=== PATIENT | female | born 1965 | race Hispanic/Latino ===

== ENCOUNTER → 2019-07-08 | Outpatient (CLI) | payer BC ==
[~2019-07-08] MED LIST: ASPI-555 PO; CALC950T2 PO; CHOL100053 PO; LEVO50TA11 PO; LISI-613 PO; LORA10TA7 PO; PRAV20TA4 PO
== END | disposition home or self-care (01) ==
LOC: RAH 08:58
PROVIDERS: ATTEND Internal Medicine Nephrology
DX: Z12.31 Encounter for screening mammogram for malignant neoplasm of breast (principal); C73 Malignant neoplasm of thyroid gland; E04.2 Nontoxic multinodular goiter
CPT/HCPCS: 76536; 77067

== ENCOUNTER → 2020-04-06 | Outpatient (CLI) | payer BC ==
[~2020-04-06] MED LIST changes: -ASPI-555 PO; +ASPI-556 PO
== END | disposition home or self-care (01) ==
LOC: RAH 11:04
PROVIDERS: ATTEND Internal Medicine Endocrinology, Diabetes & Metabolism
DX: E04.1 Nontoxic single thyroid nodule (principal); C73 Malignant neoplasm of thyroid gland
CPT/HCPCS: 76536

== ENCOUNTER → 2020-09-28 | Outpatient (CLI) | payer BC | END | disposition home or self-care (01) | LOC: RAH 11:16 | PROVIDERS: ATTEND Internal Medicine Endocrinology, Diabetes & Metabolism | DX: C73 Malignant neoplasm of thyroid gland (principal); E04.2 Nontoxic multinodular goiter | CPT/HCPCS: 76536 ==

== ENCOUNTER → 2023-10-23 | Outpatient (CLI) | payer BC ==
[~2023-10-23] MED LIST changes: -LISI-613 PO; +LISI20TA24 PO
== END | disposition home or self-care (01) ==
LOC: RAH 13:23
PROVIDERS: ATTEND Family Medicine
DX: Z12.31 Encounter for screening mammogram for malignant neoplasm of breast (principal); R92.323 Mammographic fibroglandular density, bilateral breasts
CPT/HCPCS: 77067

== ENCOUNTER 2025-05-23 11:44 | Inpatient (IN) | payer BC ==
[~2025-05-23] VITALS: Ht 157.5 cm; Wt 81.6 kg
[~2025-05-23 11:44] MED LIST changes: -PRAV20TA4 PO; +PRAV20TA59 PO
--- NOTE | 2025-05-23 12:17 | EKG ---
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
[2025-05-23 12:22] LABS: IMMATURE GRANULOCYTE ABSOLUTE 0.05 K/uL (0-1); NUCLEATED RED BLOOD CELLS 0.0 % (0.0-0.19); PLATELET COUNT (AUTO) 306 K/uL (130-400); RED BLOOD CELL COUNT(AUTO) 4.02 MIL/uL (4.00-5.50); RED CELL DISTRIBUTION WIDTH 12.9 % (11.0-15.5); WHITE BLOOD COUNT (AUTO) 8.9 K/uL (4.8-10.8)
[2025-05-23 12:29] LABS: CREATININE 0.6 mg/dL (0.5-1.0); GLOMERULAR FILTR. RATE CALC 103.0 mL/min (>90); GLUCOSE,RANDOM 115.0 mg/dL (70-105); SODIUM SERUM 143.0 mmol/L (136-145); UREA NITROGEN, BLOOD 20.0 mg/dL (7-18)
[2025-05-23] MEDS: 0.9%NACL 1000ML 1,000 ML IV STA (13:16)
[2025-05-23 13:22] LABS: GLUCOSE, URINE (UA) NEGATIVE (NEGATIVE); LEUKOCYTE ESTERASE ,URINE 75 Leu/uL (NEGATIVE); NITRATE,URINE NEGATIVE (NEGATIVE); OCCULT BLOOD,URINE MODERATE (NEGATIVE)
[2025-05-23 13:30] LABS: ADD UA MICROSCOPIC YES; APPEARANCE,URINE HAZY (CLEAR)
[2025-05-23 13:53] LABS: HYALINE CASTS, URINE 51-100 /LPF (0-1 /LPF); SQUAMOUS EPITHELIAL CELL,UR FEW /HPF (0-2)
[2025-05-23] MEDS ORDERED: IOHEXOL-350 75 ML VIAL IV ONE (14:25)
--- NOTE | 2025-05-23 15:39 | ERN ---
ED Note History of Present Illness Stated Complaint: BLOODY STOOLS, DIZZINESS Chief Complaint: Bloody Stool Time Seen by MD: 11:46 Time Seen by Midlevel: 11:50 Dictation: 59-year-old female coming in with complaints of bloody stools and syncopal episodes. Patient states this morning she woke up as usual went to to have a bowel movement, states while she was having a bowel movement she began to feel faint, stood up and almost passed out so she sat down, noticed blood when she wiped and in his stool. Patient is having some lower abdominal discomfort. Patient brought in sample in the cup, looks like clots. Denies any nausea and vomiting fever. Allergies: Coded Allergies: No Known Drug Allergies (Unverified Allergy, Unknown, 07/04/16) Home Meds Reported Medications Cholecalciferol (Vitamin D3) (Vitamin D) 10,000 Unit Capsule, 84195 UNIT PO QWEEK, CAP 07/04/16 Aspirin (Aspir 81) 81 Mg Tablet.dr, 81 MG PO AM, TAB 07/04/16 Loratadine (Loratadine) 10 Mg Tablet, 10 MG PO AM, TAB 07/04/16 Calcium Citrate (Calcitrate) 200 Mg Tablet, 200 MG PO AM, TAB 07/04/16 Levothyroxine Sodium (Levothyroxine Sodium) 50 Mcg Tablet, 50 MCG PO DAILY, TAB 07/04/16 Pravastatin Sodium (Pravastatin Sodium) 20 Mg Tablet, 20 MG PO PM, TAB 07/04/16 Lisinopril (Lisinopril) 20 Mg Tablet, 20 MG PO PM, TAB 07/04/16 Past Medical History Past Medical History: Hypertension, Hypothyroid Surgical History: Other Surgical History Other: THYROID Review of System Dictation Constitutional: Negative for fever,chills, and weight loss Eyes: Negative for injury, pain,redness, and discharge ENT: Negative for injury,pain or swelling Cardiovascular: Negative for chest pain, palpitations, and edema Respiratory: Negative for shortness of breath, cough, and wheezing, Abdomen/GI: Lower abdominal pain with bright red stool Back: Negative for injury and pain : Negative for injury, bleeding and discharge MS/Extremity: Negative for injury and deformity Skin: Negative for rash, and discoloration Neuro: Negative for headache, weakness, numbness, tingling, and seizure Psych: Negative for suicide ideation, homicidal ideation, and hallucinations Review of Systems: was completed Initial Vital Sign VS Vital Signs Date Time Temp Pulse Resp B/P (MAP) Pulse Ox O2 Delivery O2 Flow Rate FiO2 05/23/25 11:46 97.9 57 16 131/65 93 Room Air 0 05/23/25 13:16 21 Physical Exam Dictation General: awake, alert, NAD Head/Face: Normocephalic, atraumatic Eyes: PERRL, EOMI, vision at baseline ENT: oral cavity clear, TMs clear, no signs of infection Neck: Trachea midline, supple, no nuchal rigidity Cardiovascular: RRR, normal S1/S2, No MRGs, no JVD Respiratory: CTAB, no respiratory distress, No rales or wheezes Abdomen: Soft, non-tender, non-distended, normal bowel sounds, no guarding or rebound. Skin: Warm, dry, normal turgor, no rash MS/Extremity: Pulses equal, no cyanosis, neurovascular intact, FROM Neuro: COAx4, GCS 15, strength 5/5, CN 2-12 intact, normal cerebellar exam, normal gait, Psych: Normal behavior, mood, and affect normal On rectal exam there are external hemorrhoids, nonthrombosed. Results (Laboratory/Radiology) Laboratory/Radiology Laboratory Tests Test 05/23/25 12:10 05/23/25 12:11 05/23/25 13:00 Whole Blood Glucose 96 MG/DL (70-110) White Blood Count 8.9 K/uL (4.8-10.8) Red Blood Count 4.02 MIL/uL (4.00-5.50) Hemoglobin 12.1 g/dL (12.0-16.0) Hematocrit 36.4 % (36-48) Mean Corpuscular Volume 90.5 fL (79-99) Mean Corpuscular Hemoglobin 30.1 pg (27.0-33.0) Mean Corpuscular Hemoglobin Concent 33.2 g/dL (32.0-36.0) Red Cell Distribution Width 12.9 % (11.0-15.5) Platelet Count 306 K/uL (130-400) Mean Platelet Volume 9.1 fL (7.5-10.5) Immature Granulocyte % (Auto) 0.6 % (0-1) Neutrophils (%) (Auto) 66.4 % (40.0-77.0) Lymphocytes (%) (Auto) 27.4 % (21.0-51.0) Monocytes (%) (Auto) 4.8 % (3.0-13.0) Eosinophils (%) (Auto) 0.4 % (0.0-8.0) Basophils (%) (Auto) 0.4 % (0.0-5.0) Neutrophils # (Auto) 5.9 K/uL (1.8-7.7) Lymphocytes # (Auto) 2.5 K/uL (1.0-4.8) Monocytes # (Auto) 0.4 K/uL (0.1-1.0) Eosinophils # (Auto) 0.04 K/uL (0.00-0.70) Basophils # (Auto) 0.04 K/uL (0.00-0.20) Absolute Immature Granulocyte (auto 0.05 K/uL (0-1) Nucleated Red Blood Cells 0.0 % (0.0-0.19) Sodium Level 143 mmol/L (136-145) Potassium Level 4.0 mmol/L (3.5-5.1) Chloride Level 105 mmol/L (101-111) Carbon Dioxide Level 30 mmol/L (21-32) Blood Urea Nitrogen 20 mg/dL (7-18) H Creatinine 0.6 mg/dL (0.5-1.0) Glomerular Filtration Rate Calc 103 mL/min (>90) Random Glucose 115 mg/dL (70-105) H Total Calcium 8.8 mg/dL (8.5-10.1) Troponin I High Sensitivity 11 ng/L (4-50) Urine Color YELLOW (YELLOW) Urine Appearance HAZY (CLEAR) Urine pH 5.5 (5.0-8.0) Urine Specific [place] 1.027 (1.001-1.031) Urine Protein 50 mg/dL (NEGATIVE) H Urine Glucose (UA) NEGATIVE mg/dL (NEGATIVE) Urine Ketones NEGATIVE mg/dL (NEGATIVE) Urine Occult Blood MODERATE (NEGATIVE) H Urine Nitrate NEGATIVE (NEGATIVE) Urine Bilirubin NEGATIVE mg/dL (NEGATIVE) Urine Urobilinogen 0.2 mg/dL (0.2-1.0) Urine Leukocyte Esterase 75 Patti/uL (NEGATIVE) H Urine RBC 2-5 /HPF (0-1) H Urine WBC 11-25 /HPF (0-1) H Urine Squamous Epithelial Cells FEW /HPF (0-2) Urine Bacteria None /HPF (None Seen) Urine Hyaline Casts 51-100 /LPF (0-1 /LPF) H Labs Reviewed?: Yes EKG Comment: EKGs did not at 12:11 p.m., sinus rhythm with a rate of 63. No STEMI interpreted by ER MD CT Scan Comment: [facility] [address] [place] [address] IMAGING REPORT Signed PATIENT: QUIANA JOHN MR#: [id number] : 1965 SEX: F AGE: 59 LOCATION: [facility] ORDER 37 STATUS: REG ER REPORT#: [id number] SERVICE 37 REASON: gibleed ORDERING PHYSICIAN: JOY VALDEZ NP PROCEDURE: ABD PEL W - CT ABDOMEN/PELVIS W/CONTRAST EXAM: CT Abdomen and Pelvis with IV contrast CLINICAL HISTORY: gibleed TECHNIQUE: Axial computed tomography images of the abdomen and pelvis with intravenous contrast. CT scan performed according to ALARA. Automated exposure control used during exam. CONTRAST: with intravenous contrast. COMPARISON: None provided. FINDINGS: There is mild linear atelectasis and/or parenchymal scarring at the lung bases. Presumed cyst within the left hepatic lobe. There is no intrahepatic biliary ductal dilatation. Prominent gallbladder. No radiopaque gallstone identified. No gallbladder wall thickening or pericholecystic inflammatory fat stranding. Adrenal glands, kidneys, spleen, and pancreas are within normal limits. Bowel loops are normal in caliber without evidence of obstruction, ileus, or obvious bowel wall thickening. Colonic diverticulosis without evidence for diverticulitis. The appendix is normal. Bladder, and other pelvic organs appear within normal limits. There is no ascites or lymphadenopathy. Opacified abdominal and pelvic vessels are patent. There is no acute or suspicious osseous abnormality. IMPRESSION: 1. No acute intraabdominal or pelvic pathology. No CT evidence of an active/acute gastrointestinal hemorrhage; however, if clinical concern persists recommend a tagged RBC scan for further evaluation. /[place] DICTATED BY: GIBSON RODRIGUEZ Jr., MD DATE: 05/23/251640 ELECTRONICALLY SIGNED BY: GIBSON RODRIGUEZ Jr., MD DATE: 05/23/251640 ED Course ED Course Orders Procedure Category Date Status Time Cbc With Differential LAB 05/23/25 Complete 11:58 Basic Metabolic Panel LAB 05/23/25 Complete 11:58 Occult Blood Stool LAB 05/23/25 Logged Single Only 11:58 Urinalysis Profile LAB 05/23/25 Complete 11:58 Troponin I High LAB 05/23/25 Complete Sensitivity 11:58 12 Lead Ekg Tracing- EKG 05/23/25 Resulted Technical 11:58 0.9%Nacl 1000ml (Ns PHA 05/23/25 Complete 1000ml) 12:12 Culture Urine RAMIREZ 05/23/25 In Process 13:31 Ct Abdomen/Pelvis CT 05/23/25 Resulted W/Contrast 13:38 Iohexol (Omnipaque) PHA 05/23/25 Complete 14:25 Current Medications Medications (Trade) Dose Ordered Sig/Magui Route PRN Reason Start Time Stop Time Status Last Admin Dose Admin Iohexol (Omnipaque) 75 ml STK-MED ONCE IV 05/23/25 14:25 05/23/25 14:26 DC Sodium Chloride 1,000 ml @ 1,000 mls/hr Q1H STAT IV 05/23/25 12:12 05/23/25 13:11 DC 05/23/25 13:16 Vital Signs Date Time Temp Pulse Resp B/P (MAP) Pulse Ox O2 Delivery O2 Flow Rate FiO2 05/23/25 13:16 62 16 118/51 95 Room Air* 0 21 05/23/25 11:46 97.9 57 16 131/65 93 Room Air 0 Medical Decision Making MDM MDM: 59-year-old female coming in with complaints of bloody stools and syncopal episodes. Patient states this morning she woke up as usual went to to have a bowel movement, states while she was having a bowel movement she began to feel faint, stood up and almost passed out so she sat down, noticed blood when she wiped and in his stool. Patient is having some lower abdominal discomfort. Patient brought in sample in the cup, looks like clots. Denies any nausea and vomiting fever. Blood work is unremarkable. Normal H&H. CT scan does not show anything acute. Patient will be admitted for GI consultation and possible serial H&H. Patient has not had any bowel movements while in the emergency room vital signs have remained stable. Differential diagnosis: GI bleed, hemorrhoid, anemia Rationale: Tests considered and ordered secondary to shared decision making include: labs, ECG and radiology Previous outside records reviewed: Old ER visits. Risk of complication and/or morbidity or mortality of patient management: None Medications-Per medication reconciliation Need for hospitalization: Patient does meet criteria for hospitalization. Need for emergency major/minor surgery: No There are no social concerns with this patient. Prescription drug management Prescriptions will include symptomatic care Patient's prior external medical records from other ER visits were reviewed by me as indicated. Prior testing and results from previous visits were reviewed. Prior tests were taken into account with medical decision making and resource utilization, independent historian/historians were used to obtain complete medical history. I independently interpreted the test that were performed, results were reviewed by me and considered findings on radiology if ordered. Medical management and examination interpretation discussions were had by me with other qualified healthcare professionals as indicated for the patient's care. DX & DISP Disposition: Inpatient Decision to Admit Date: May 23, 2025 Decision to Admit Time: 16:12 Departure Impression: Primary Impression: GI (gastrointestinal bleed) Condition: Stable Referrals: SAHRA CORONADO MD (PCP) I have reviewed the case, and I agree with, Diagnosis and Plan JOY VALDEZ NP May 23, 2025 15:39
--- NOTE | 2025-05-23 15:42 | HMCIMG ---
EXAM: CT Abdomen and Pelvis with IV contrast CLINICAL HISTORY: gibleed TECHNIQUE: Axial computed tomography images of the abdomen and pelvis with intravenous contrast. CT scan performed according to ALARA. Automated exposure control used during exam. CONTRAST: with intravenous contrast. COMPARISON: None provided. FINDINGS: There is mild linear atelectasis and/or parenchymal scarring at the lung bases. Presumed cyst within the left hepatic lobe. There is no intrahepatic biliary ductal dilatation. Prominent gallbladder. No radiopaque gallstone identified. No gallbladder wall thickening or pericholecystic inflammatory fat stranding. Adrenal glands, kidneys, spleen, and pancreas are within normal limits. Bowel loops are normal in caliber without evidence of obstruction, ileus, or obvious bowel wall thickening. Colonic diverticulosis without evidence for diverticulitis. The appendix is normal. Bladder, and other pelvic organs appear within normal limits. There is no ascites or lymphadenopathy. Opacified abdominal and pelvic vessels are patent. There is no acute or suspicious osseous abnormality. IMPRESSION: 1. No acute intraabdominal or pelvic pathology. No CT evidence of an active/acute gastrointestinal hemorrhage; however, if clinical concern persists recommend a tagged RBC scan for further evaluation. /[place]
--- NOTE | 2025-05-23 17:20 | NUR ---
GI CONSULT [facility] DR. BUTLER DONE, ORDERED CLEAR LIQUID DIET AND STATES WILL PT TOMORROW. ALSO, DR. MIMS SPOKE TO DR. BUTLER POST NURSE talk.
--- NOTE | 2025-05-23 17:53 | CONS ---
GASTROENTEROLOGY CONSULTATION NOTE Date of Consultation: May 23, 2025 Time of Consultation: 17:51 History of Present Illness: [ This is a 59-year-old female patient who came to the emergency room with complaints of bloody stools. Per ER report patient reported feeling faint this morning. On exam patient stated she had brought in a cup with some blood clots that she had passed. She reports having mild left lower quadrant abdominal pain. She denies having any constipation, denies nausea or vomiting. Her CBC is significant for WBC of 8.9 hemoglobin 12.1 which has trended down to 10.7, platelets of 306. CMP significant for BUN of 20, glucose of 115, LFTs were not examined. PT 11.5, INR 1.09. CT of abdomen and pelvis with no acute intra- abdominal or pelvic pathology. No CT evidence of an active/acute gastrointestinal hemorrhage: Patient reports having last colonoscopy about 10 years ago in which she was told she had diverticulosis. Plan discussed with patient and spouse with recommendations for colonoscopy tomorrow morning to assess for any pathology or cause of bleeding. Both patient and spouse verbalized understanding and agreed to proceed with colonoscopy.] Review of Systems: CONSTITUTIONAL: No malaise or change in sensation of wellbeing. ENMT: No rhinorrhea, otorrhea, sinus pain, ear ache. CARDIOVASCULAR: No angina, palpitations, orthopnea or paroxysmal dyspnea. RESPIRATORY: No SOB. GASTROINTESTINAL: No abdominal pain, nausea, vomiting, diarrhea, hematemesis, melena or change in the patient's habitual bowel movements consistency/number. GENITOURINARY: No dysuria, hematuria or change in bladder continence. MUSCULOSKELETAL: No new muscle pain or decrease in muscular strength. No new joint swelling, redness or tenderness. SKIN: No new rash. Past Medical History: Hypertension, hypothyroidism PAST SURGICAL HISTORY: History of colonoscopy PAST SOCIAL HISTORY: Denied any smoking, alcohol, drug use FAMILY HISTORY: Denied any pertinent family history Coded Allergies: No Known Drug Allergies (Unverified Allergy, Unknown, 07/04/16) Physical Exam: GEN: Awake, alert, oriented in person, time and place, and in no acute distress. HEENT: No rhinorrhea. Oral pharyngeal mucosa is pink, moist and within normal limits. CHEST: Inspection, palpation of the chest were unremarkable. Lung auscultation revealed normal breath sounds bilaterally. CARDIAC: PMI is within normal limits. Heart sounds are regular. ABD: Soft, nondistended but mildly tender to LLQ. No peritoneal signs on palpation. No organomegaly. Normal bowel sounds. EXT: No cyanosis or clubbing. No edema. SKIN: Intact. No rashes. JOINTS: No evidence of synovitis or acute arthritis. NEURO: Alert and oriented to name, place and person. Cranial nerve examination is unremarkable. No focal motor deficits. Normal speech. Strength is normal. Vital Sign (Last 24 Hours) 05/23/25 05/23/25 11:46 16:26 Temp 97.9 Pulse 65 Resp 16 B/P (MAP) 141/67 Pulse Ox 96 O2 Delivery Room Air* O2 Flow Rate 0 FiO2 21 Laboratory: [ ] Laboratory: Test 05/23/25 17:41 05/23/25 13:00 05/23/25 12:11 05/23/25 12:10 Range/Units Hemoglobin 10.7 L 12.0-16.0 g/dL Hematocrit 32.2 L 36-48 % Urine Color YELLOW YELLOW Urine Appearance HAZY CLEAR Urine pH 5.5 5.0-8.0 Urine Specific [place] 1.027 1.001-1.031 Urine Protein 50 H NEGATIVE mg/dL Urine Glucose (UA) NEGATIVE NEGATIVE mg/dL Urine Ketones NEGATIVE NEGATIVE mg/dL Urine Occult Blood MODERATE H NEGATIVE Urine Nitrate NEGATIVE NEGATIVE Urine Bilirubin NEGATIVE NEGATIVE mg/dL Urine Urobilinogen 0.2 0.2-1.0 mg/dL Urine Leukocyte Esterase 75 H NEGATIVE Patti/uL Urine RBC 2-5 H 0-1 /HPF Urine WBC 11-25 H 0-1 /HPF Urine Squamous Epithelial Cells FEW 0-2 /HPF Urine Bacteria None None Seen /HPF Urine Hyaline Casts 51-100 H 0-1 /LPF /LPF White Blood Count 8.9 4.8-10.8 K/uL Red Blood Count 4.02 4.00-5.50 MIL/uL Mean Corpuscular Volume 90.5 79-99 fL Mean Corpuscular Hemoglobin 30.1 27.0-33.0 pg Mean Corpuscular Hemoglobin Concent 33.2 32.0-36.0 g/dL Red Cell Distribution Width 12.9 11.0-15.5 % Platelet Count 306 130-400 K/uL Mean Platelet Volume 9.1 7.5-10.5 fL Immature Granulocyte % (Auto) 0.6 0-1 % Neutrophils (%) (Auto) 66.4 40.0-77.0 % Lymphocytes (%) (Auto) 27.4 21.0-51.0 % Monocytes (%) (Auto) 4.8 3.0-13.0 % Eosinophils (%) (Auto) 0.4 0.0-8.0 % Basophils (%) (Auto) 0.4 0.0-5.0 % Neutrophils # (Auto) 5.9 1.8-7.7 K/uL Lymphocytes # (Auto) 2.5 1.0-4.8 K/uL Monocytes # (Auto) 0.4 0.1-1.0 K/uL Eosinophils # (Auto) 0.04 0.00-0.70 K/uL Basophils # (Auto) 0.04 0.00-0.20 K/uL Absolute Immature Granulocyte (auto 0.05 0-1 K/uL Nucleated Red Blood Cells 0.0 0.0-0.19 % Sodium Level 143 136-145 mmol/L Potassium Level 4.0 3.5-5.1 mmol/L Chloride Level 105 101-111 mmol/L Carbon Dioxide Level 30 21-32 mmol/L Blood Urea Nitrogen 20 H 7-18 mg/dL Creatinine 0.6 0.5-1.0 mg/dL Glomerular Filtration Rate Calc 103 >90 mL/min Random Glucose 115 H 70-105 mg/dL Total Calcium 8.8 8.5-10.1 mg/dL Troponin I High Sensitivity 11 4-50 ng/L Whole Blood Glucose 96 70-110 MG/DL Current Medications Medications (Trade) Dose Ordered Sig/Magui Route PRN Reason Start Time Stop Time Status Last Admin Dose Admin Acetaminophen (TYLenol 500MG TAB) 500 mg Q6H PRN PO MILD PAIN (1-3) 05/23/25 17:30 05/23/25 17:28 DC Acetaminophen (TYLenol 500MG TAB) 500 mg Q6H PRN PO MILD PAIN (1-3) 05/23/25 17:30 06/22/25 17:29 Ceftriaxone Sodium (ROCEphine 1G INJ) 1 gm Q24H IVPB 05/23/25 17:30 06/02/25 17:29 Pantoprazole Sodium (PROTonix 40MG INJ) 40 mg Q12H IVP 05/23/25 17:30 06/22/25 17:29 Sodium Chloride 1,000 ml @ 100 mls/hr Q10H IV 05/23/25 17:30 06/22/25 17:29 Sodium Chloride 1,000 ml @ 1,000 mls/hr Q1H STAT IV 05/23/25 12:12 05/23/25 13:11 DC 05/23/25 13:16 1,000 MLS/HR Diagnostics / Radiology: [COPY/PASTE HERE IF NO REPORTS PLEASE DELETE SECTION] Assessment: [ Hematochezia Abdominal pain Diverticulosis Hypertension Hypothyroidism ] Plan: [NPO Colonoscopy in am--Information given on procedure with risks and benefits. All patient's and spouse's questions were answered and patient agreed to proceed. Trend HGB every 6 hours and transfuse as needed to goal of HGB >7 Please call with questions, concerns, and change in clinical status Thank you for allowing us to be part of this patient's care. ] PALMIRA EMRCHANT SALESPERSON TERRAZZO TILES May 23, 2025 17:53
[2025-05-23] MEDS: 0.9%NACL 1000ML 1,000 ML IV SCH (18:40)
[2025-05-23] MEDS: PEG 3350/NA SULF,BICARB,CL/KCL 4000 ML SOLN PO ONE (18:40)
--- NOTE | 2025-05-23 18:44 | HP ---
[facility] HISTORY AND PHYSICAL Date of Service: May 23, 2025 Time of Service: 18:35 HISTORY OF PRESENT ILLNESS: 59-year-old female with past medical history of hypertension, hypothyroidism who presented to the hospital secondary to hematochezia. The patient states she was having a bowel movement today when she noted that she had red color stool with her BM. During the episode she felt faint and dizzy. The episode lasted for a few minutes. She tried to stand up and she felt she was going to faint. She never lost consciousness during the episode. She sat down on the toilet bowel. She denied any headache, chest pain, shortness of breath, nausea, vomiting associated with the pain. She denied any hematemesis, melena. She has a had a colonoscopy done around [address] Braun as outpatient which was noted to have diverticulosis. She has not had never had a previous episode of hematochezia in the past. She does have hemorrhoids noted. Additionally she also felt she was having some suprapubic tenderness with her bowel movement. She denied any dysuria, hematuria. She denies being on any blood thinners. She was recently having lower extremity muscle spasm and hip pain. She was started on muscle relaxant and ibuprofen. She has been taking ibuprofen for one week once a day. She denied any history of gastritis, GERD. Labs in the ED were notable for white count of 8.9, hemoglobin was 12.1, platelet count was 306 K, sodium was 143, potassium was 4.0, BUN was 20, creatinine was 0.6 troponin was negative x1 She had a CT abdomen pelvis done showed no acute intra abdominal or intra pelvic pathology. REVIEW OF SYSTEMS CONSTITUTIONAL: Denies fevers, chills, or night sweats. No unintentional weight loss reported. NEUROLOGICAL: Denies headache, amaurosis fugax, motor weakness, sensory deficit, vertigo/spinning sensation, gait abnormalities, or tremors. ENT: No hearing loss, otalgia, otorrhea, rhinitis, rhinorrhea, hoarseness, or sore throat. CARDIOVASCULAR: Denies any exertional angina, dyspnea on exertion, orthopnea, paroxysmal nocturnal dyspnea, palpitations, life-threatening arrhythmias, claudication. PULMONARY: Denies any shortness of breath, cough, phlegm/sputum, hemoptysis, pleuritic chest pain. GASTROINTESTINAL: Positive for hematochezia. Denied any nausea, vomiting, melena, hematemesis. GENITOURINARY: Denies frequency, urgency, nocturia, hematuria or incontinence (Storage/Irritative symptoms.) Low urinary stream, straining to void, urinary intermittency or hesitancy, splitting of the voiding stream, terminal dribbling. ENDOCRINOLOGIC: Denies polyuria, polydipsia, polyphagia or heat/cold intolerances. HEMATOLOGIC: Denies thrombophilia/previous clots, or coagulopathy/bleeding disorders. ONCOLOGIC: Denies personal history of malignancy. DERMATOLOGIC: Denies rashes or pruritus. PSYCHIATRIC: Denies any suicidal or homicidal ideation. Denies hallucinations. PAST MEDICAL HISTORY: Hypertension, hypothyroidism PAST SURGICAL HISTORY: History of colonoscopy PAST SOCIAL HISTORY: Denied any smoking, alcohol, drug use FAMILY HISTORY: Denied any pertinent family history Coded Allergies: No Known Drug Allergies (Unverified Allergy, Unknown, 07/04/16) PHYSICAL EXAM GENERAL APPEARANCE: The patient is awake, alert, and oriented, in no acute cardiopulmonary distress. NEUROLOGICAL: Cranial nerves II-XII grossly intact. Motor is 5/5 in bilateral upper and lower extremities proximal to distal. No sensory deficits. HEENT: Face is symmetric. Pupils are equal and reactive. Extraocular movements are intact. NECK: Supple. No JVD. No thyromegaly. No submental, submandibular, pre- /postauricular, occipital or supraclavicular lymphadenopathy. CHEST: Normal chest expansion. No Telemetry. LUNGS: Absence of any rales, rhonchi or any wheezing. CARDIOVASCULAR: Regular. S1 and S2 normal. No appreciable rubs, murmurs or gallops. ABDOMEN: Soft, nontender, and nondistended. There is no rebound, voluntary guarding, or rigidity. : Deferred. No Sánchez. EXTREMITIES: Non-edematous and not cyanotic. No clubbing. Good capillary refill. SKIN: No skin breakdown. Vital Sign (Last 24 Hours) 05/23/25 05/23/25 11:46 16:26 Temp 97.9 Pulse 65 Resp 16 B/P (MAP) 141/67 Pulse Ox 96 O2 Delivery Room Air* O2 Flow Rate 0 FiO2 21 LABS: Laboratory: Test 05/23/25 17:41 05/23/25 13:00 05/23/25 12:11 05/23/25 12:10 Range/Units Hemoglobin 10.7 L 12.0-16.0 g/dL Hematocrit 32.2 L 36-48 % Urine Color YELLOW YELLOW Urine Appearance HAZY CLEAR Urine pH 5.5 5.0-8.0 Urine Specific [place] 1.027 1.001-1.031 Urine Protein 50 H NEGATIVE mg/dL Urine Glucose (UA) NEGATIVE NEGATIVE mg/dL Urine Ketones NEGATIVE NEGATIVE mg/dL Urine Occult Blood MODERATE H NEGATIVE Urine Nitrate NEGATIVE NEGATIVE Urine Bilirubin NEGATIVE NEGATIVE mg/dL Urine Urobilinogen 0.2 0.2-1.0 mg/dL Urine Leukocyte Esterase 75 H NEGATIVE Ptati/uL Urine RBC 2-5 H 0-1 /HPF Urine WBC 11-25 H 0-1 /HPF Urine Squamous Epithelial Cells FEW 0-2 /HPF Urine Bacteria None None Seen /HPF Urine Hyaline Casts 51-100 H 0-1 /LPF /LPF White Blood Count 8.9 4.8-10.8 K/uL Red Blood Count 4.02 4.00-5.50 MIL/uL Mean Corpuscular Volume 90.5 79-99 fL Mean Corpuscular Hemoglobin 30.1 27.0-33.0 pg Mean Corpuscular Hemoglobin Concent 33.2 32.0-36.0 g/dL Red Cell Distribution Width 12.9 11.0-15.5 % Platelet Count 306 130-400 K/uL Mean Platelet Volume 9.1 7.5-10.5 fL Immature Granulocyte % (Auto) 0.6 0-1 % Neutrophils (%) (Auto) 66.4 40.0-77.0 % Lymphocytes (%) (Auto) 27.4 21.0-51.0 % Monocytes (%) (Auto) 4.8 3.0-13.0 % Eosinophils (%) (Auto) 0.4 0.0-8.0 % Basophils (%) (Auto) 0.4 0.0-5.0 % Neutrophils # (Auto) 5.9 1.8-7.7 K/uL Lymphocytes # (Auto) 2.5 1.0-4.8 K/uL Monocytes # (Auto) 0.4 0.1-1.0 K/uL Eosinophils # (Auto) 0.04 0.00-0.70 K/uL Basophils # (Auto) 0.04 0.00-0.20 K/uL Absolute Immature Granulocyte (auto 0.05 0-1 K/uL Nucleated Red Blood Cells 0.0 0.0-0.19 % Sodium Level 143 136-145 mmol/L Potassium Level 4.0 3.5-5.1 mmol/L Chloride Level 105 101-111 mmol/L Carbon Dioxide Level 30 21-32 mmol/L Blood Urea Nitrogen 20 H 7-18 mg/dL Creatinine 0.6 0.5-1.0 mg/dL Glomerular Filtration Rate Calc 103 >90 mL/min Random Glucose 115 H 70-105 mg/dL Total Calcium 8.8 8.5-10.1 mg/dL Troponin I High Sensitivity 11 4-50 ng/L Whole Blood Glucose 96 70-110 MG/DL Current Medications Medications (Trade) Dose Ordered Sig/Magui Route PRN Reason Start Time Stop Time Status Last Admin Dose Admin Acetaminophen (TYLenol 500MG TAB) 500 mg Q6H PRN PO MILD PAIN (1-3) 05/23/25 17:30 05/23/25 17:28 DC Acetaminophen (TYLenol 500MG TAB) 500 mg Q6H PRN PO MILD PAIN (1-3) 05/23/25 17:30 06/22/25 17:29 Ceftriaxone Sodium (ROCEphine 1G INJ) 1 gm Q24H IVPB 05/23/25 17:30 06/02/25 17:29 Pantoprazole Sodium (PROTonix 40MG INJ) 40 mg Q12H IVP 05/23/25 17:30 06/22/25 17:29 Sodium Chloride 1,000 ml @ 100 mls/hr Q10H IV 05/23/25 17:30 06/22/25 17:29 Sodium Chloride 1,000 ml @ 1,000 mls/hr Q1H STAT IV 05/23/25 12:12 05/23/25 13:11 DC 05/23/25 13:16 1,000 MLS/HR DIAGNOSTICS / RADIOLOGY: CT abdomen performed showed no evidence of intra-abdominal pathology ASSESSMENT: Hematochezia POA differential diverticular History of diverticulosis Suspected UTI Presyncope likely in setting of GI bleed and hypovolemia Hypertension Hypothyroidism PLAN: - patient to be admitted to [facility] -in reference to hematochezia. The patient will be started on Protonix IV. There was no evidence of liver cirrhosis in CT abdomen pelvis. We will request consultation with GI for further evaluation. Case was personally discussed with GI. The patient will have colonoscopy done tomorrow. She will be started on bowel prep. Trend H&H q.6 hours. Type and screen. Transfuse if hemoglobin is less than seven. -patient to be started on NS for gentle hydration -in reference to presyncope this is likely in setting of GI bleed. Patient will be monitored on telemetry -obtain home medication which will be reconciled once available - check TSH, A1c -further orders per hospitalization course. Advanced Care Planning Which of the following were discussed: Hospice care: Yes __ No _x_ Therapeutic options: Yes __ No __ Advance directives: Yes __ No __ Other discussions: Pt is full code Discussed with who?: patient (Patient, family or surrogates) Voluntary nature of this service was explained to the patient? Yes x__ No __ Amount of time spent: 25 minutes VELIA Fischer MD, MD May 23, 2025 18:44
[2025-05-23 19:19] LABS: INR 1.09 (0.85-1.15)
[2025-05-23] MEDS: ZOSYN 3.375GM+NS 50ML 50 ML ONE (19:41)
[2025-05-23] MEDS ORDERED: LISI20TA24 PO (20:03)
[2025-05-23] MEDS ORDERED: LEVO75TA10 PO (20:03)
[2025-05-23 21:00] VITALS: BP 149/81; PULSE 56; RESP 19; TEMP 98.3
[2025-05-23] MEDS: LISINOPRIL 10 MG TABLET PO SCH (22:18)
[2025-05-23 23:30] VITALS: O2SAT 99
[2025-05-23 23:38] VITALS: BP 167/70; PULSE 53; RESP 19; TEMP 98.2
[2025-05-24] VITALS (22 sets, daily range): BP systolic 110–157; BP diastolic 54–94; PULSE 54–77; RESP 14–19; TEMP 96.5–98.6; O2SAT 94–96
[2025-05-24 05:59] LABS: CREATININE 0.5 mg/dL (0.5-1.0); GLOMERULAR FILTR. RATE CALC 107.0 mL/min (>90); GLUCOSE,RANDOM 93.0 mg/dL (70-105); SODIUM SERUM 143.0 mmol/L (136-145); UREA NITROGEN, BLOOD 14.0 mg/dL (7-18)
--- NOTE | 2025-05-24 06:30 | NUR ---
NURSING NOTES PT. LAST BOWEL MOVEMENT WAS CLEAR, YELLOWISH IN COLOR, LIQUID, NO FORMED STOOLS. HAS SOME FIBER LIKE (STRANDS) GASTRIC CONTENTS. PT. WAS ABLE TO TOLERATE BOWEL PREP (GOLYTELY), NO NAUSEA AND VOMITING. WASN'T ABLE TO FINISH THE GOLYTELY BECAUSE SHE START LATE AT AROUND 2100. PT. REFUSED TO START IT AT ED.
[2025-05-24] MEDS ORDERED: LIDOCAINE PF 100MG/5ML (2%) SYRINGE 5ML ONE ×2 (08:40→09:22)
[2025-05-24] MEDS ORDERED: GLYCOPYRROLATE 0.2 MG/ML 5 ML VIAL ONE (08:46)
--- NOTE | 2025-05-24 09:29 | NUR ---
PATIENT NOT IN UNIT FOR 0800 DOCUMENTATION. CURRENTLY AT OR COLONOSCOPY Addendum: 05/24/25 at 0932 by BARBARA MARIN LVN Amended: Links added.
--- NOTE | 2025-05-24 09:30 | NUR ---
PATIENT CURRENTLY AT OR COLONOSCOPY PROCEDURE
--- NOTE | 2025-05-24 09:31 | NUR ---
PATIENT NOT IN UNIT. CURRENTLY AT OR FOR COLONOSCOPY PROCEDURE. Addendum: 05/24/25 at 0932 by BARBARA MARIN LVN Amended: Links added.
--- NOTE | 2025-05-24 12:35 | NUR ---
DC PLAN VISITED WITH PATIENT. PATIENT LIVES WITH SPOUSE. INDEPENDENT ABLE TO PERFORM ADL'S. PATIENT HAS NO SERVICES OR DME'S. FEELS SAFE TO RETURN HOME. Addendum: 05/24/25 at 1236 by GISELLE SOLOMON RN CM Amended: Links added.
--- NOTE | 2025-05-24 13:51 | PN ---
[facility] PROGRESS NOTE Date of Service: May 24, 2025 Time of Service: 13:47 SUBJECTIVE: [ vital signs within normal limits. hemoglobin conitnues to drop ] REVIEW OF SYSTEMS CONSTITUTIONAL: Denies fevers, chills, or night sweats. No unintentional weight loss reported. NEUROLOGICAL: Denies headache, amaurosis fugax, motor weakness, sensory deficit, vertigo/spinning sensation, gait abnormalities, or tremors. ENT: No hearing loss, otalgia, otorrhea, rhinitis, rhinorrhea, hoarseness, or sore throat. CARDIOVASCULAR: Denies any exertional angina, dyspnea on exertion, orthopnea, paroxysmal nocturnal dyspnea, palpitations, life-threatening arrhythmias, claudication. PULMONARY: Denies any shortness of breath, cough, phlegm/sputum, hemoptysis, pleuritic chest pain. GASTROINTESTINAL: Positive for hematochezia. Denied any nausea, vomiting, melena, hematemesis. GENITOURINARY: Denies frequency, urgency, nocturia, hematuria or incontinence (Storage/Irritative symptoms.) Low urinary stream, straining to void, urinary intermittency or hesitancy, splitting of the voiding stream, terminal dribbling. ENDOCRINOLOGIC: Denies polyuria, polydipsia, polyphagia or heat/cold intolerances. HEMATOLOGIC: Denies thrombophilia/previous clots, or coagulopathy/bleeding disorders. ONCOLOGIC: Denies personal history of malignancy. DERMATOLOGIC: Denies rashes or pruritus. PSYCHIATRIC: Denies any suicidal or homicidal ideation. Denies hallucinations. PHYSICAL EXAM GENERAL APPEARANCE: The patient is awake, alert, and oriented, in no acute cardiopulmonary distress. NEUROLOGICAL: Cranial nerves II-XII grossly intact. Motor is 5/5 in bilateral upper and lower extremities proximal to distal. No sensory deficits. HEENT: Face is symmetric. Pupils are equal and reactive. Extraocular movements are intact. NECK: Supple. No JVD. No thyromegaly. No submental, submandibular, pre- /postauricular, occipital or supraclavicular lymphadenopathy. CHEST: Normal chest expansion. No Telemetry. LUNGS: Absence of any rales, rhonchi or any wheezing. CARDIOVASCULAR: Regular. S1 and S2 normal. No appreciable rubs, murmurs or gallops. ABDOMEN: Soft, nontender, and nondistended. There is no rebound, voluntary guarding, or rigidity. : Deferred. No Sánchez. EXTREMITIES: Non-edematous and not cyanotic. No clubbing. Good capillary refill. SKIN: No skin breakdown. Vital Signs (last 8hr) Date Time Temp Pulse Resp B/P (MAP) Pulse Ox O2 Delivery O2 Flow Rate FiO2 05/24/25 11:27 68 19 131/69 97 Room Air 05/24/25 10:57 61 18 142/70 97 Room Air 05/24/25 10:41 66 18 135/81 96 Room Air 05/24/25 10:27 60 18 153/74 96 Room Air 05/24/25 10:08 98.2 75 18 157/79 96 Room Air 05/24/25 09:55 97.2 69 14 116/57 98 Room Air 05/24/25 09:50 69 17 110/57 99 Room Air 05/24/25 09:45 61 16 111/58 98 Room Air 05/24/25 09:40 69 14 116/57 98 Room Air 05/24/25 09:35 61 16 113/56 98 Nasal Cannula 2.0 05/24/25 09:30 67 16 114/54 99 Nasal Cannula 2.0 05/24/25 09:25 96.4 69 17 116/57 98 Nonrebreathing Mask 10.0 05/24/25 09:00 Mask 05/24/25 09:00 Mask 10.0 LABS: Laboratory: Test 05/24/25 12:00 05/24/25 05:26 05/23/25 18:57 05/23/25 17:41 Range/Units Hemoglobin 9.6 L 12.0-16.0 g/dL Hematocrit 29.5 L 36-48 % Sodium Level 143 136-145 mmol/L Potassium Level 4.4 3.5-5.1 mmol/L Chloride Level 107 101-111 mmol/L Carbon Dioxide Level 28 21-32 mmol/L Blood Urea Nitrogen 14 7-18 mg/dL Creatinine 0.5 0.5-1.0 mg/dL Glomerular Filtration Rate Calc 107 >90 mL/min Random Glucose 93 70-105 mg/dL Total Calcium 8.3 L 8.5-10.1 mg/dL Prothrombin Time 11.5 9.6-11.6 SEC Prothromb Time International Ratio 1.09 0.85-1.15 Activated Partial Thromboplast Time 21.7 L 26.3-35.5 SEC Hemoglobin A1c 5.5 4.0-6.0 % Estimated Average Glucose (eAG) 111 70-126 mg/dL Test 05/23/25 13:00 05/23/25 12:11 05/23/25 12:10 Range/Units Urine Color YELLOW YELLOW Urine Appearance HAZY CLEAR Urine pH 5.5 5.0-8.0 Urine Specific [place] 1.027 1.001-1.031 Urine Protein 50 H NEGATIVE mg/dL Urine Glucose (UA) NEGATIVE NEGATIVE mg/dL Urine Ketones NEGATIVE NEGATIVE mg/dL Urine Occult Blood MODERATE H NEGATIVE Urine Nitrate NEGATIVE NEGATIVE Urine Bilirubin NEGATIVE NEGATIVE mg/dL Urine Urobilinogen 0.2 0.2-1.0 mg/dL Urine Leukocyte Esterase 75 H NEGATIVE Patti/uL Urine RBC 2-5 H 0-1 /HPF Urine WBC 11-25 H 0-1 /HPF Urine Squamous Epithelial Cells FEW 0-2 /HPF Urine Bacteria None None Seen /HPF Urine Hyaline Casts 51-100 H 0-1 /LPF /LPF White Blood Count 8.9 4.8-10.8 K/uL Red Blood Count 4.02 4.00-5.50 MIL/uL Mean Corpuscular Volume 90.5 79-99 fL Mean Corpuscular Hemoglobin 30.1 27.0-33.0 pg Mean Corpuscular Hemoglobin Concent 33.2 32.0-36.0 g/dL Red Cell Distribution Width 12.9 11.0-15.5 % Platelet Count 306 130-400 K/uL Mean Platelet Volume 9.1 7.5-10.5 fL Immature Granulocyte % (Auto) 0.6 0-1 % Neutrophils (%) (Auto) 66.4 40.0-77.0 % Lymphocytes (%) (Auto) 27.4 21.0-51.0 % Monocytes (%) (Auto) 4.8 3.0-13.0 % Eosinophils (%) (Auto) 0.4 0.0-8.0 % Basophils (%) (Auto) 0.4 0.0-5.0 % Neutrophils # (Auto) 5.9 1.8-7.7 K/uL Lymphocytes # (Auto) 2.5 1.0-4.8 K/uL Monocytes # (Auto) 0.4 0.1-1.0 K/uL Eosinophils # (Auto) 0.04 0.00-0.70 K/uL Basophils # (Auto) 0.04 0.00-0.20 K/uL Absolute Immature Granulocyte (auto 0.05 0-1 K/uL Nucleated Red Blood Cells 0.0 0.0-0.19 % Troponin I High Sensitivity 11 4-50 ng/L Thyroid Stimulating Hormone (TSH) 2.37 0.36-3.74 uIU/mL Whole Blood Glucose 96 70-110 MG/DL Current Medications Medications (Trade) Dose Ordered Sig/Magui Route PRN Reason Start Time Stop Time Status Last Admin Dose Admin Acetaminophen (TYLenol 500MG TAB) 500 mg Q6H PRN PO MILD PAIN (1-3) 05/23/25 17:30 05/23/25 17:28 DC Acetaminophen (TYLenol 500MG TAB) 500 mg Q6H PRN PO MILD PAIN (1-3) 05/23/25 17:30 06/22/25 17:29 Ceftriaxone Sodium (ROCEphine 1G INJ) 1 gm Q24H IVPB 05/23/25 17:30 06/02/25 17:29 05/23/25 18:39 1 GM Levothyroxine Sodium (SYNTHroid 75MCG TAB) 75 mcg SYN PO 05/24/25 06:30 06/23/25 06:29 Lisinopril (Prinivil 10mg) 10 mg HS PO 05/23/25 21:00 06/22/25 20:59 05/23/25 22:18 10 MG Pantoprazole Sodium (PROTonix 40MG INJ) 40 mg Q12H IVP 05/23/25 17:30 06/22/25 17:29 05/24/25 07:00 40 MG Sodium Chloride 1,000 ml @ 100 mls/hr Q10H IV 05/23/25 17:30 06/22/25 17:29 05/23/25 18:40 100 MLS/HR Sodium Chloride 1,000 ml @ 1,000 mls/hr Q1H STAT IV 05/23/25 12:12 05/23/25 13:11 DC 05/23/25 13:16 1,000 MLS/HR DIAGNOSTICS / RADIOLOGY: [ ] ASSESSMENT: Hematochezia POA differential diverticular History of diverticulosis Suspected UTI Presyncope likely in setting of GI bleed and hypovolemia Hypertension Hypothyroidism PLAN: Continue ceftriaxone empirically Trend WBCs Continue lisinopril -continue Protonix IV b.i.d. -follow up with GI for further evaluation. Trend H&H q.8 hours. Type and screen. Transfuse if hemoglobin is less than seven. DC IVF Trend a.m. BMP DVT prophylaxis with the SCDs only Trend a.m. CBC Continue levothyroxine Advanced Care Planning Which of the following were discussed: Hospice care: Yes __ No _x_ Therapeutic options: Yes __ No __ Advance directives: Yes __ No __ Other discussions: Pt is full code Discussed with who?: patient (Patient, family or surrogates) Voluntary nature of this service was explained to the patient? Yes x__ No __ Amount of time spent: 25 minutes Ortiz Nelson MD CALDERONBRITTANY Miller IV, MD May 24, 2025 13:51
[2025-05-24] MEDS: LISINOPRIL 10 MG TABLET PO ONE (21:37)
[2025-05-25] VITALS (18 sets, daily range): BP systolic 118–151; BP diastolic 63–78; PULSE 57–69; RESP 15–18; TEMP 97–98.5; O2SAT 99
--- NOTE | 2025-05-25 09:54 | NUR ---
0800 DOCUMENTATION PATIENT AT EGD PROCEDURE DURING THIS TIME Addendum: 05/25/25 at 0955 by BARBARA MARIN LVN Amended: Links added.
[2025-05-25 10:33] LABS: CREATININE 0.5 mg/dL (0.5-1.0); GLOMERULAR FILTR. RATE CALC 107.0 mL/min (>90); GLUCOSE,RANDOM 102.0 mg/dL (70-105); SODIUM SERUM 144.0 mmol/L (136-145); UREA NITROGEN, BLOOD 8.0 mg/dL (7-18)
--- NOTE | 2025-05-25 10:35 | NUR ---
PATIENT NOT IN UNIT DURING THIS TIME. PATIENT HAVING EGD PROCEDURE DONE. Addendum: 05/25/25 at 1035 by BARBARA MARIN LVN Amended: Links added.
--- NOTE | 2025-05-25 10:36 | NUR ---
PATIENT CURRENTLY NOT IN UNIT. EGD PROCEDURE CURRENTLY.
[2025-05-25 10:49] LABS: NUCLEATED RED BLOOD CELLS 0.0 % (0.0-0.19); PLATELET COUNT (AUTO) 216.0 K/uL (130-400); RED BLOOD CELL COUNT(AUTO) 3.06 MIL/uL (4.00-5.50); RED CELL DISTRIBUTION WIDTH 12.9 % (11.0-15.5); WHITE BLOOD COUNT (AUTO) 5.7 K/uL (4.8-10.8)
--- NOTE | 2025-05-25 12:59 | PN ---
[facility] PROGRESS NOTE Date of Service: May 25, 2025 Time of Service: 12:56 SUBJECTIVE: hemoglobin is stable. She underwent EGD this morning. no complications reported REVIEW OF SYSTEMS CONSTITUTIONAL: Denies fevers, chills, or night sweats. No unintentional weight loss reported. NEUROLOGICAL: Denies headache, amaurosis fugax, motor weakness, sensory deficit, vertigo/spinning sensation, gait abnormalities, or tremors. ENT: No hearing loss, otalgia, otorrhea, rhinitis, rhinorrhea, hoarseness, or sore throat. CARDIOVASCULAR: Denies any exertional angina, dyspnea on exertion, orthopnea, paroxysmal nocturnal dyspnea, palpitations, life-threatening arrhythmias, claudication. PULMONARY: Denies any shortness of breath, cough, phlegm/sputum, hemoptysis, pleuritic chest pain. GASTROINTESTINAL: Positive for hematochezia. Denied any nausea, vomiting, melena, hematemesis. GENITOURINARY: Denies frequency, urgency, nocturia, hematuria or incontinence (Storage/Irritative symptoms.) Low urinary stream, straining to void, urinary intermittency or hesitancy, splitting of the voiding stream, terminal dribbling. ENDOCRINOLOGIC: Denies polyuria, polydipsia, polyphagia or heat/cold intolerances. HEMATOLOGIC: Denies thrombophilia/previous clots, or coagulopathy/bleeding disorders. ONCOLOGIC: Denies personal history of malignancy. DERMATOLOGIC: Denies rashes or pruritus. PSYCHIATRIC: Denies any suicidal or homicidal ideation. Denies hallucinations. PHYSICAL EXAM GENERAL APPEARANCE: The patient is awake, alert, and oriented, in no acute cardiopulmonary distress. NEUROLOGICAL: Cranial nerves II-XII grossly intact. Motor is 5/5 in bilateral upper and lower extremities proximal to distal. No sensory deficits. HEENT: Face is symmetric. Pupils are equal and reactive. Extraocular movements are intact. NECK: Supple. No JVD. No thyromegaly. No submental, submandibular, pre- /postauricular, occipital or supraclavicular lymphadenopathy. CHEST: Normal chest expansion. No Telemetry. LUNGS: Absence of any rales, rhonchi or any wheezing. CARDIOVASCULAR: Regular. S1 and S2 normal. No appreciable rubs, murmurs or gallops. ABDOMEN: Soft, nontender, and nondistended. There is no rebound, voluntary guarding, or rigidity. : Deferred. No Sánchez. EXTREMITIES: Non-edematous and not cyanotic. No clubbing. Good capillary refill. SKIN: No skin breakdown. Vital Signs (last 8hr) Date Time Temp Pulse Resp B/P (MAP) Pulse Ox O2 Delivery O2 Flow Rate FiO2 05/25/25 11:55 60 18 132/70 97 Room Air 05/25/25 10:55 98.2 63 18 134/73 98 Room Air 05/25/25 10:25 97.5 60 18 137/72 96 Room Air 05/25/25 10:25 97.5 60 18 137/72 96 Room Air 05/25/25 09:55 60 18 132/76 96 Room Air 05/25/25 09:40 63 18 137/77 96 Room Air 05/25/25 09:25 66 18 144/78 99 Room Air 05/25/25 09:10 97.3 69 18 151/73 99 Room Air 05/25/25 09:00 65 18 142/72 98 Room Air 21 05/25/25 08:55 66 16 140/75 98 Nasal Cannula 2.0 05/25/25 08:50 62 15 141/71 98 Nasal Cannula 2.0 05/25/25 08:45 63 16 135/70 98 Nasal Cannula 2.0 05/25/25 08:40 60 18 140/73 100 Nasal Cannula 2.0 05/25/25 08:35 62 18 118/67 100 Nasal Cannula 3.0 05/25/25 08:30 97.0 64 16 120/63 100 Nasal Cannula 3.0 05/25/25 08:15 Mask 05/25/25 08:15 Mask 10.0 LABS: Laboratory: Test 05/25/25 09:55 05/23/25 18:57 05/23/25 17:41 05/23/25 13:00 Range/Units White Blood Count 5.7 4.8-10.8 K/uL Red Blood Count 3.06 L 4.00-5.50 MIL/uL Hemoglobin 9.3 L 12.0-16.0 g/dL Hematocrit 27.7 L 36-48 % Mean Corpuscular Volume 90.5 79-99 fL Mean Corpuscular Hemoglobin 30.4 27.0-33.0 pg Mean Corpuscular Hemoglobin Concent 33.6 32.0-36.0 g/dL Red Cell Distribution Width 12.9 11.0-15.5 % Platelet Count 216 # 130-400 K/uL Mean Platelet Volume 9.1 7.5-10.5 fL Nucleated Red Blood Cells 0.0 0.0-0.19 % Sodium Level 144 136-145 mmol/L Potassium Level 3.5 3.5-5.1 mmol/L Chloride Level 109 101-111 mmol/L Carbon Dioxide Level 30 21-32 mmol/L Blood Urea Nitrogen 8 7-18 mg/dL Creatinine 0.5 0.5-1.0 mg/dL Glomerular Filtration Rate Calc 107 >90 mL/min Random Glucose 102 70-105 mg/dL Total Calcium 8.4 L 8.5-10.1 mg/dL Prothrombin Time 11.5 9.6-11.6 SEC Prothromb Time International Ratio 1.09 0.85-1.15 Activated Partial Thromboplast Time 21.7 L 26.3-35.5 SEC Hemoglobin A1c 5.5 4.0-6.0 % Estimated Average Glucose (eAG) 111 70-126 mg/dL Urine Color YELLOW YELLOW Urine Appearance HAZY CLEAR Urine pH 5.5 5.0-8.0 Urine Specific [place] 1.027 1.001-1.031 Urine Protein 50 H NEGATIVE mg/dL Urine Glucose (UA) NEGATIVE NEGATIVE mg/dL Urine Ketones NEGATIVE NEGATIVE mg/dL Urine Occult Blood MODERATE H NEGATIVE Urine Nitrate NEGATIVE NEGATIVE Urine Bilirubin NEGATIVE NEGATIVE mg/dL Urine Urobilinogen 0.2 0.2-1.0 mg/dL Urine Leukocyte Esterase 75 H NEGATIVE Patti/uL Urine RBC 2-5 H 0-1 /HPF Urine WBC 11-25 H 0-1 /HPF Urine Squamous Epithelial Cells FEW 0-2 /HPF Urine Bacteria None None Seen /HPF Urine Hyaline Casts 51-100 H 0-1 /LPF /LPF Current Medications Medications (Trade) Dose Ordered Sig/Magui Route PRN Reason Start Time Stop Time Status Last Admin Dose Admin Acetaminophen (TYLenol 500MG TAB) 500 mg Q6H PRN PO MILD PAIN (1-3) 05/23/25 17:30 05/23/25 17:28 DC Acetaminophen (TYLenol 500MG TAB) 500 mg Q6H PRN PO MILD PAIN (1-3) 05/23/25 17:30 06/22/25 17:29 Ceftriaxone Sodium (ROCEphine 1G INJ) 1 gm Q24H IVPB 05/23/25 17:30 06/02/25 17:29 05/24/25 18:07 1 GM Levothyroxine Sodium (SYNTHroid 75MCG TAB) 75 mcg SYN PO 05/24/25 06:30 06/23/25 06:29 Lisinopril (Prinivil 10mg) 10 mg HS PO 05/23/25 21:00 05/24/25 21:33 DC 05/24/25 20:46 10 MG Lisinopril (Prinivil 20mg) 20 mg HS PO 05/25/25 21:00 06/24/25 20:59 Pantoprazole Sodium (PROTonix 40MG INJ) 40 mg Q12H IVP 05/23/25 17:30 06/22/25 17:29 05/25/25 05:17 40 MG Sodium Chloride 1,000 ml @ 100 mls/hr Q10H IV 05/23/25 17:30 06/22/25 17:29 05/25/25 09:13 100 MLS/HR Sodium Chloride 1,000 ml @ 1,000 mls/hr Q1H STAT IV 05/23/25 12:12 05/23/25 13:11 DC 05/23/25 13:16 1,000 MLS/HR DIAGNOSTICS / RADIOLOGY: [ ] ASSESSMENT: Hematochezia POA differential diverticular History of diverticulosis Suspected UTI Presyncope likely in setting of GI bleed and hypovolemia Hypertension Hypothyroidism PLAN: Continue ceftriaxone empirically Trend WBCs Continue lisinopril -continue Protonix IV b.i.d. -follow up with GI for further recommendations s/p egd Trend a.m. BMP DVT prophylaxis with the SCDs only Trend a.m. CBC Continue levothyroxine Advanced Care Planning Which of the following were discussed: Hospice care: Yes __ No _x_ Therapeutic options: Yes __ No __ Advance directives: Yes __ No __ Other discussions: Pt is full code Discussed with who?: patient (Patient, family or surrogates) Voluntary nature of this service was explained to the patient? Yes x__ No __ Amount of time spent: 25 minutes BRITTANY Mchugh MD, IV, MD May 25, 2025 12:58
--- NOTE | 2025-05-25 13:17 | DS ---
Discharge Summary Hospital Course Summary: Patient was admitted due to hematochezia concern for GI bleed. Colonoscopy demonstrated diverticulosis in the sigmoid colon as well as nonbleeding internal hemorrhoids. The decision was made to proceed with EGD. EGD demonstrated gastritis status post biopsies to be follow up in clinic by GI. Hemoglobin st abilized just above 9. No signs of further GI bleeding. The decision was made to discharge the patient to follow up with PCP and GI. Medications as per med rec Maintenance Worker(s): GI Assessment/Plan: ASSESSMENT: Hematochezia POA differential diverticular History of diverticulosis Suspected UTI Presyncope likely in setting of GI bleed and hypovolemia Hypertension Hypothyroidism PLAN: Continue ceftriaxone empirically Trend WBCs Continue lisinopril -continue Protonix IV b.i.d. -follow up with GI for further recommendations s/p egd Trend a.m. BMP DVT prophylaxis with the SCDs only Trend a.m. CBC Continue levothyroxine Advanced Care Planning Which of the following were discussed: Hospice care: Yes __ No _x_ Therapeutic options: Yes __ No __ Advance directives: Yes __ No __ Other discussions: Pt is full code Discussed with who?: patient (Patient, family or surrogates) Voluntary nature of this service was explained to the patient? Yes x__ No __ Amount of time spent: 25 minutes Ortiz Nelson MD Home Medications: Reported Medications Lisinopril (Lisinopril) 20 Mg Tablet, 1 TAB PO HS for 30 Days, #30 TAB 0 Refills 05/23/25 Levothyroxine Sodium (Levothyroxine Sodium) 75 Mcg Tablet, 1 TAB PO DAILY for 30 Days, #30 TAB 0 Refills 05/23/25 Cholecalciferol (Vitamin D3) (Vitamin D) 10,000 Unit Capsule, 53413 UNIT PO DAILY, CAP 07/04/16 Discontinued Reported Medications Calcium Citrate (Calcitrate) 200 Mg Tablet, 200 MG PO AM, TAB 07/04/16 Levothyroxine Sodium (Levothyroxine Sodium) 50 Mcg Tablet, 50 MCG PO DAILY, TAB 07/04/16 Pravastatin Sodium (Pravastatin Sodium) 20 Mg Tablet, 20 MG PO PM, TAB 07/04/16 Lisinopril (Lisinopril) 20 Mg Tablet, 20 MG PO PM, TAB 07/04/16 Time spent arranging discharge: 31-60 minutes BRITTANY CALDERON IV, MD May 25, 2025 13:17
[2025-05-25] MEDS ORDERED: PANT40TA54 PO (13:18)
[2025-05-25] MEDS ORDERED: LISINOPRIL 20 MG TABLET PO SCH (21:00)
[2025-06-04] MEDS ORDERED: AMOX1TAB16 PO (16:59)
== END 2025-05-25 17:01 | disposition home or self-care (01) | DRG 378 ==
LOC: EDBD → EDH 11:44 → EDHIP 17:11 → 4CH 20:36
PROVIDERS: ADMIT Internal Medicine; ATTEND Internal Medicine
PROC: 0DJD8ZZ Inspection of Lower Intestinal Tract, Via Natural or Artificial Opening Endoscopic (ICD-10-PCS; principal; 2025-05-24)
PROC: 0DB98ZX Excision of Duodenum, Via Natural or Artificial Opening Endoscopic, Diagnostic (ICD-10-PCS; 2025-05-25)
PROC: 0DB68ZX Excision of Stomach, Via Natural or Artificial Opening Endoscopic, Diagnostic (ICD-10-PCS; 2025-05-25)
PROC: 0DB78ZX Excision of Stomach, Pylorus, Via Natural or Artificial Opening Endoscopic, Diagnostic (ICD-10-PCS; 2025-05-25)
DX: K29.71 Gastritis, unspecified, with bleeding (principal); N39.0 Urinary tract infection, site not specified; K57.31 Diverticulosis of large intestine without perforation or abscess with bleeding; I10 Essential (primary) hypertension; E86.1 Hypovolemia; E03.9 Hypothyroidism, unspecified; K64.0 First degree hemorrhoids; K64.4 Residual hemorrhoidal skin tags; Z79.899 Other long term (current) drug therapy
CPT/HCPCS: 36415; 43239; 45378; 74177; 80048; 81001; 82948; 83036; 84443; 84484; 85014; 85018; 85025; 85027; 85610; 85730; 86850; 86900; 86901; 87086; 88305; 88312; 93005; 96360; 99285; A4606; G0378; J0696; J2003; J2470; J2543; J2704; J3490; J7030; Q9967; A4215; A4222; A4223; A4620

== ENCOUNTER 2025-05-29 05:59 | Inpatient (IN) | payer BC ==
[~2025-05-29] VITALS: Ht 157.5 cm; Wt 79.8 kg
[~2025-05-29 05:59] MED LIST changes: -ASPI-556 PO; -CALC950T2 PO; -LEVO50TA11 PO; +LEVO75TA10 PO; -LORA10TA7 PO; +PANT40TA54 PO; -PRAV20TA59 PO
--- NOTE | 2025-05-29 06:22 | ERN ---
General Chief Complaint: Gi Problem Stated Complaint: SYNCOPE, GI BLEED Time Seen by MD: 06:14 Source: patient History of Present Illness Initial Comments 57-year-old female recently discharged from this hospital after a negative EGD and negative colonoscopy for bright red blood per rectum. She left the hospital three days ago and the next morning experienced a bright red bloody stool. She went on a fast in case the food was irritating her intestines and causing problems and then today started eating soft food. She had again a large bloody stool and possibly a vasovagal response as her found her on the floor of the bathroom. He called EMS and they brought her to the hospital. She is alert and oriented and explains very well her journey to this admission. Allergies: Coded Allergies: No Known Drug Allergies (Unverified Allergy, Unknown, 07/04/16) Home Meds Active Scripts Pantoprazole Sodium (Pantoprazole Sodium) 40 Mg Tablet.dr, 1 TAB PO DAILY for 30 Days, #30 TAB 0 Refills Prov:BRITTANY CALDERON IV, MD 05/25/25 Reported Medications Lisinopril (Lisinopril) 20 Mg Tablet, 1 TAB PO HS for 30 Days, #30 TAB 0 Refills 05/23/25 Levothyroxine Sodium (Levothyroxine Sodium) 75 Mcg Tablet, 1 TAB PO DAILY for 30 Days, #30 TAB 0 Refills 05/23/25 Cholecalciferol (Vitamin D3) (Vitamin D) 10,000 Unit Capsule, 20982 UNIT PO DAILY, CAP 07/04/16 Discontinued Reported Medications Calcium Citrate (Calcitrate) 200 Mg Tablet, 200 MG PO AM, TAB 07/04/16 Levothyroxine Sodium (Levothyroxine Sodium) 50 Mcg Tablet, 50 MCG PO DAILY, TAB 07/04/16 Pravastatin Sodium (Pravastatin Sodium) 20 Mg Tablet, 20 MG PO PM, TAB 07/04/16 Lisinopril (Lisinopril) 20 Mg Tablet, 20 MG PO PM, TAB 07/04/16 Past Medical History Past Medical History: Diverticulosis, Hypertension, Hypothyroid Medical History Other: GI Bleeding Past Surgical History: Other Surgical History Other: THYROID Constitutional: (-) chills, (-) diaphoresis, (-) fever, (-) malaise, (-) weakness, (-) other documentation EENTM: (-) eye pain, (-) blurred vision, (-) tearing, (-) double vision, (-) ear pain, (-) ear discharge, (-) nose pain, (-) nose congestion, (-) throat pain, (-) Throat swelling, (-) mouth pain, (-) tooth pain, (-) mouth swelling, (-) other documentation Respiratory: (-) cough, (-) orthopnea, (-) short of breath, (-) stridor, (-) wheezing, (-) other documentation Cardiovascular: (-) chest pain, (-) edema, (-) palpitations, (-) syncope, (-) d yspnea on exertion Gastrointestinal/Abdominal: (+) rectal bleeding Genitourinary: (-) vaginal discharge, (-) vaginal bleeding, (-) dysuria, (-) frequency, (-) hematuria, (-) pain, (-) other documentation Physical Exam General Appearance: (+) mild distress Orientation: (+) alert, (+) oriented x 3 Head/Face Trauma: No Eye: bilateral eye normal inspection, bilateral eye PERRL, bilateral eye EOMI Ear, Nose, Throat: (+) hearing grossly normal, (+) normal ENT inspection, (+) moist mucous membraine Neck: (+) normal inspection, (+) supple, (+) full range of motion Respiratory: (+) chest non-tender, (+) lungs clear, (+) well ventilated Heart: (+) regular, (+) no gallop Vascular: (+) no edema, (+) normal peripheral pulse Gastrointestinal: (+) soft, (+) non-tender, (+) bowel sound absent Results Laboratory and Microbiology Lab and Micro Result Laboratory Tests Test 05/29/25 06:39 White Blood Count 10.1 K/uL (4.8-10.8) Red Blood Count 2.09 MIL/uL (4.00-5.50) L Hemoglobin 6.4 g/dL (12.0-16.0) *L Hematocrit 19.0 % (36-48) *L Mean Corpuscular Volume 90.9 fL (79-99) Mean Corpuscular Hemoglobin 30.6 pg (27.0-33.0) Mean Corpuscular Hemoglobin Concent 33.7 g/dL (32.0-36.0) Red Cell Distribution Width 13.6 % (11.0-15.5) Platelet Count 251 K/uL (130-400) Mean Platelet Volume 9.5 fL (7.5-10.5) Immature Granulocyte % (Auto) 0.6 % (0-1) Neutrophils (%) (Auto) 77.0 % (40.0-77.0) Lymphocytes (%) (Auto) 17.2 % (21.0-51.0) L Monocytes (%) (Auto) 4.7 % (3.0-13.0) Eosinophils (%) (Auto) 0.1 % (0.0-8.0) Basophils (%) (Auto) 0.4 % (0.0-5.0) Neutrophils # (Auto) 7.8 K/uL (1.8-7.7) H Lymphocytes # (Auto) 1.7 K/uL (1.0-4.8) Monocytes # (Auto) 0.5 K/uL (0.1-1.0) Eosinophils # (Auto) 0.01 K/uL (0.00-0.70) Basophils # (Auto) 0.04 K/uL (0.00-0.20) Absolute Immature Granulocyte (auto 0.06 K/uL (0-1) Nucleated Red Blood Cells 0.0 % (0.0-0.19) Stool Occult Blood POSITIVE (NEGATIVE) H MDM MDM: Differential diagnosis: Recurrent lower GI bleeding. Hemorrhoids versus AVM versus upper GI bleeding we will get an H and H and admit her to the hospital. Rationale: Tests considered and ordered secondary to shared decision making include: Previous outside records reviewed: Old ER visits. Risk of complication and/or morbidity or mortality of patient management: None Medications-Per medication reconciliation Need for hospitalization: Patient does meet criteria for hospitalization. Need for emergency major/minor surgery: No There are no social concerns with this patient. Prescription drug management Prescriptions will include symptomatic care Patient's prior external medical records from other ER visits were reviewed by me as indicated. Prior testing and results from previous visits were reviewed. Prior tests were taken into account with medical decision making and resource ut ilization, independent historian/historians were used to obtain complete medical history. I independently interpreted the test that were performed, results were reviewed by me and considered findings on radiology if ordered. Patient's hemoglobin was 6.4. She had Hemoccult-positive stool. I have given her a bolus of LR. Patient has good blood pressure and a heart rate of 70. I will admit her to the hospital and begin blood transfusions. ED Course Orders Procedure Category Date Status Time Basic Metabolic Panel LAB 05/29/25 In Process 06:14 Cbc With Differential LAB 05/29/25 Complete 06:14 Urinalysis Profile LAB 05/29/25 Logged 06:14 ,Urine Test LAB 05/29/25 Logged 06:14 Lactated Ringers PHA 05/29/25 Complete 1000ml (Lactated 06:14 Occult Blood Stool LAB 05/29/25 Complete Single Only 06:25 Current Medications Medications (Trade) Dose Ordered Sig/Magui Route PRN Reason Start Time Stop Time Status Last Admin Dose Admin Lactated Ringer's (Lactated Ringers 1000ml) 1,000 ml BOLUS STAT IV 05/29/25 06:14 05/29/25 06:17 DC 05/29/25 07:00 Vital Signs Date Time Temp Pulse Resp B/P (MAP) Pulse Ox O2 Delivery O2 Flow Rate FiO2 05/29/25 06:42 96.3 70 18 121/48 100 Room Air* 0 21 05/29/25 06:01 96.3 70 18 124/72 100 Room Air 0 DX & DISP Disposition: Inpatient Departure Impression: Primary Impression: GI (gastrointestinal bleed) Additional Impression: Anemia Condition: Stable Referrals: ILAN FRAUSTO DO (PCP) SOBIA PHILIP MD May 29, 2025 06:22
[2025-05-29 06:48] LABS: IMMATURE GRANULOCYTE ABSOLUTE 0.06 K/uL (0-1); NUCLEATED RED BLOOD CELLS 0.0 % (0.0-0.19); PLATELET COUNT (AUTO) 251 K/uL (130-400); RED BLOOD CELL COUNT(AUTO) 2.09 MIL/uL (4.00-5.50); RED CELL DISTRIBUTION WIDTH 13.6 % (11.0-15.5); WHITE BLOOD COUNT (AUTO) 10.1 K/uL (4.8-10.8)
[2025-05-29 06:58] LABS: CREATININE 0.6 mg/dL (0.5-1.0); GLOMERULAR FILTR. RATE CALC 103.0 mL/min (>90); GLUCOSE,RANDOM 68.0 mg/dL (70-105); SODIUM SERUM 141.0 mmol/L (136-145); UREA NITROGEN, BLOOD 14.0 mg/dL (7-18)
[2025-05-29] MEDS: LACTATED RINGERS 1000ML IV STA (07:00)
[2025-05-29] MEDS ORDERED: MAGNESIUM 2GM PREMIX 50ML 50 ML IV PRN (08:00)
[2025-05-29] MEDS ORDERED: COMPOUND IV REFRIGERATED 1 EACH IVSOLN MISC PRN (08:00)
[2025-05-29] MEDS: 0.9%NACL 1000ML 1,000 ML IV SCH (08:30)
--- NOTE | 2025-05-29 08:33 | HP ---
[facility] HISTORY AND PHYSICAL Date of Service: May 29, 2025 Time of Service: 08:18 HISTORY OF PRESENT ILLNESS: 59-year-old female with past medical history of hypertension, hypothyroidism who presented to the hospital secondary to hematochezia and syncopal fall. The patient states she had a bowel movement 4 days ago and had blood in the stools and she decided to fast from that day and believed it would heal, she had not had a bowel movement after that again. she was having a bowel movement today when she noted that she had red color stool with her BM. During the episode she felt faint and dizzy . She was found on the ground by her in the bathroom. She tried to stand up after pooping and had syncopal fall and had loss of consciousness. She denied any headache, chest pain, shortness of breath, vomiting . She denied any hematemesis, melena. She has a had a colonoscopy done 5 days ago which is unremarkable for any findings other than internal hemorrhoids and endoscopy 4 days ago on which they found mild gastritis and biopsied the areas, from the previous admission last week which she was admitted for similar complaint. Additionally she also felt she was having some suprapubic tenderness with her bowel movement. She denied any dysuria, hematuria. She denies being on any blood thinners. She was recently having lower extremity muscle spasm and hip pain. She was started on muscle relaxant and ibuprofen. She has been taking ibuprofen for one week once a day. She denied any history of gastritis, GERD. Since her discharge from the previous admission she has been taking pantoprazole 40 mg in the morning daily, and levothyroxine 75 mg. She stopped taking her antihypertensive as she monitored her blood pressure to be low. Patient is NPO since 4 days other than drinking water . Labs in the ED were notable for white count of 10.1, hemoglobin was 6.4, platelet count was 251 K, sodium was 141, potassium was 3.0, BUN was 21, creatinine was 0.6 troponin was negative x1 Patient is currently hemodynamically stable with temperature 97, pulse 69, respiratory rate 16, blood pressure 129/61, saturating at 97% on room air Patient is being admitted with a diagnosis of acute GI bleed, syncopal fall REVIEW OF SYSTEMS CONSTITUTIONAL: Denies fevers, chills, or night sweats. No unintentional weight loss reported. NEUROLOGICAL: Denies headache, amaurosis fugax, motor weakness, sensory deficit, vertigo/spinning sensation, gait abnormalities, or tremors. ENT: No hearing loss, otalgia, otorrhea, rhinitis, rhinorrhea, hoarseness, or sore throat. CARDIOVASCULAR: Denies any exertional angina, dyspnea on exertion, orthopnea, paroxysmal nocturnal dyspnea, palpitations, life-threatening arrhythmias, claudication. PULMONARY: Denies any shortness of breath, cough, phlegm/sputum, hemoptysis, pleuritic chest pain. SLEEP: Denies morning headaches, daytime somnolence or napping. Denies difficulty falling asleep, staying asleep, waking from sleep. Denies knowledge of snoring. GASTROINTESTINAL: Positive for hematochezia. Denied any nausea, vomiting, melena, hematemesis. GENITOURINARY: Denies frequency, urgency, nocturia, hematuria or incontinence (Storage/Irritative symptoms.) Low urinary stream, straining to void, urinary intermittency or hesitancy, splitting of the voiding stream, terminal dribbling. ENDOCRINOLOGIC: Denies polyuria, polydipsia, polyphagia or heat/cold intolerances. HEMATOLOGIC: Denies thrombophilia/previous clots, or coagulopathy/bleeding disorders. PSYCHIATRIC: Denies any suicidal or homicidal ideation. Denies hallucinations. PAST MEDICAL HISTORY: Hypertension, hypothyroidism PAST SURGICAL HISTORY: Thyroidectomy PAST SOCIAL HISTORY: Denies smoking, alcohol, drug use FAMILY HISTORY: Father of [place] Mother had history of COPD, pacemaker placement Coded Allergies: No Known Drug Allergies (Unverified Allergy, Unknown, 07/04/16) PHYSICAL EXAM GENERAL APPEARANCE: The patient is awake, alert, and oriented, in no acute cardiopulmonary distress. HEENT: Face is symmetric. Pupils are equal and reactive. Extraocular movements are intact. CHEST: Normal chest expansion. No Telemetry. LUNGS: Absence of any rales, rhonchi or any wheezing. CARDIOVASCULAR: Regular. S1 and S2 normal. No appreciable rubs, murmurs or gallops. ABDOMEN: Soft and nondistended. Mild tenderness in lower abdomen : Deferred. No Sánchez. EXTREMITIES: Non-edematous and not cyanotic. No clubbing. Good capillary refill. SKIN: No skin breakdown. Vital Sign (Last 24 Hours) 05/29/25 07:36 Temp 97.0 Pulse 69 Resp 16 B/P (MAP) 129/61 Pulse Ox 97 O2 Delivery Room Air* O2 Flow Rate 0 FiO2 21 LABS: Laboratory: Test 05/29/25 06:39 Range/Units White Blood Count 10.1 4.8-10.8 K/uL Red Blood Count 2.09 L 4.00-5.50 MIL/uL Hemoglobin 6.4 *L 12.0-16.0 g/dL Hematocrit 19.0 *L 36-48 % Mean Corpuscular Volume 90.9 79-99 fL Mean Corpuscular Hemoglobin 30.6 27.0-33.0 pg Mean Corpuscular Hemoglobin Concent 33.7 32.0-36.0 g/dL Red Cell Distribution Width 13.6 11.0-15.5 % Platelet Count 251 130-400 K/uL Mean Platelet Volume 9.5 7.5-10.5 fL Immature Granulocyte % (Auto) 0.6 0-1 % Neutrophils (%) (Auto) 77.0 40.0-77.0 % Lymphocytes (%) (Auto) 17.2 L 21.0-51.0 % Monocytes (%) (Auto) 4.7 3.0-13.0 % Eosinophils (%) (Auto) 0.1 0.0-8.0 % Basophils (%) (Auto) 0.4 0.0-5.0 % Neutrophils # (Auto) 7.8 H 1.8-7.7 K/uL Lymphocytes # (Auto) 1.7 1.0-4.8 K/uL Monocytes # (Auto) 0.5 0.1-1.0 K/uL Eosinophils # (Auto) 0.01 0.00-0.70 K/uL Basophils # (Auto) 0.04 0.00-0.20 K/uL Absolute Immature Granulocyte (auto 0.06 0-1 K/uL Nucleated Red Blood Cells 0.0 0.0-0.19 % Stool Occult Blood POSITIVE H NEGATIVE Sodium Level 141 136-145 mmol/L Potassium Level 3.0 *L 3.5-5.1 mmol/L Chloride Level 104 101-111 mmol/L Carbon Dioxide Level 21 21-32 mmol/L Blood Urea Nitrogen 14 7-18 mg/dL Creatinine 0.6 0.5-1.0 mg/dL Glomerular Filtration Rate Calc 103 >90 mL/min Random Glucose 68 L 70-105 mg/dL Total Calcium 8.0 L 8.5-10.1 mg/dL Current Medications Medications (Trade) Dose Ordered Sig/Magui Route PRN Reason Start Time Stop Time Status Last Admin Dose Admin Lactated Ringer's (Lactated Ringers 1000ml) 1,000 ml BOLUS STAT IV 05/29/25 06:14 05/29/25 06:17 DC 05/29/25 07:00 1,000 ML Magnesium Sulfate 50 ml @ 0 mls/hr PROTOCOL PRN IV mgprotocol 05/29/25 08:00 06/28/25 07:59 Ondansetron HCl (zoFRAN 4MG INJ) 4 mg Q6H PRN IVP NAUSEA/VOMITING 05/29/25 08:00 06/28/25 07:59 Pantoprazole Sodium 80 mg/ Sodium Chloride 100 ml @ 10 mls/hr Q10H IV 05/29/25 07:30 06/28/25 07:29 05/29/25 08:05 10 MLS/HR Potassium Chloride 100 ml @ 50 mls/hr AD PRN IV POTASSIUM PROTOCOL 05/29/25 08:00 05/29/25 08:02 DC Potassium Chloride 100 ml @ 100 mls/hr AD PRN IV POTASSIUM PROTOCOL 05/29/25 08:00 06/28/25 07:59 Potassium Chloride (K-Dur/Klor-Con 20meq) 20 meq AD PRN PO POTASSIUM PROTOCOL 05/29/25 08:00 06/28/25 07:59 Potassium Chloride (KCl 10% Elixir 20meq/15ml) 20 meq AD PRN PO POTASSIUM PROTOCOL 05/29/25 08:00 06/28/25 07:59 Sodium Chloride 1,000 ml @ 100 mls/hr Q10H IV 05/29/25 08:30 06/28/25 08:29 DIAGNOSTICS / RADIOLOGY: [ ] ASSESSMENT: Acute GI Bleed symptomatic iron deficiency Anemia History of diverticulosis Syncopal fall Hypertension Hypothyroidism PLAN: Patient admitted to Med/surg with TELE Acute GI Bleed, Syncopal Fall, Anemia patient to be kept NPO Patient started on Pantoprazole Drip and octreotide drip gastroenterology consulted on the case Nuclear medicine GI blood loss Imaging has been ordered Will trend H&H Q 8 Zofran for nausea pending report from pelvic x ray for pain due to fall maintain hemoglobin above 7g/dl, 1 unit transfused today. Plan to transfuse with Venofer Hypertension, hypothyroidism continue the Levothyroxine , hold on the antihypertensive due to soft blood pressure DVT prophylaxis with SCDs Further course of hospitalisation depending on GI recommendations and clinical response. ATTESTATION BY PHYSICIAN I have seen and examined the patient. I reviewed the documentation, medical decision making, and treatment plan as noted by the resident provider above. I agree with the findings and plan of care. Filiberto Sahu MD, KEERTI K MD May 29, 2025 08:33
[2025-05-29 08:53] LABS: INR 1.13 (0.85-1.15)
[2025-05-29 09:04] LABS: ASPARTATE AMINOTRANSFERASE 29.0 U/L (10-37); PHOSPHORUS 3.7 mg/dL (2.5-4.9); TOTAL PROTEIN, SERUM 5.9 g/dL (6.0-8.3)
[2025-05-29 09:10] LABS: % IRON SATURATION 16.3 % (22-44); IRON, SERUM 40.0 mcg/dL (50-170)
--- NOTE | 2025-05-29 09:46 | CONS ---
GASTROENTEROLOGY CONSULTATION NOTE Date of Consultation: May 29, 2025 Time of Consultation: 09:44 History of Present Illness: [This is a 59-year-old female patient with past medical history of hypertension, hypothyroidism, who presented to the emergency room with complaints of rectal bleeding and hypotension. Patient had been admitted on 05/24 with the same complaint and had undergone an EGD and colonoscopy on 05/24/25, which revealed: Skin tags on perianal exam, terminal ileum appeared normal, rectum, descending colon, transverse colon, ascending colon, cecum, Appendiceal orifice and ileocecal valve appeared normal, nonbleeding internal hemorrhoids were found, a few large mouth diverticula were found in the sigmoid colon with no evidence of diverticular bleeding. EGD significant for gastritis, with normal duodenal bulb and 2nd portion of duodenum, normal cricopharyngeus proximal and distal esophagus and regular Z-line at 36 cm. CBC with WBC of 10.1, hemoglobin 6.4, platelets 251. Chemistry significant for potassium of 3.0, glucose of 68, calcium 8.0, total bilirubin 0.5, direct bili 0.1, AST and ALT are normal, alkaline phosphatase 46, CRP 3.10, albumin 3.2. Iron low at 40, TIBC 245, % saturation at 16.3, ferritin at 185. TSH 1.41. PT 11.8, INR 1.13. Stool positive for fecal occult blood. On exam, patient is a,a,& o x 3 in no acute distress. VSS. Her respirations are unlabored with BBS clear. Abdomen is soft, nondistended, but tender to LLQ. She reports she had bleeding with BM on 05/25/25 and then again this morning. She states she had low bmp and fell in shower on her buttocks. Patient states she has been on clear fluids with last solid meal on 05/25/25 at 1830. POC discussed and need to reevaluate with Flex-sig in am. Patient verbalized understanding and agreement. GI bleed scan findings: No evidence of gastrointestinal hemorrhage during the course of examination acquisition. Review of Systems: CONSTITUTIONAL: No malaise or change in sensation of wellbeing. ENMT: No rhinorrhea, otorrhea, sinus pain, ear ache. CARDIOVASCULAR: No angina, palpitations, orthopnea or paroxysmal dyspnea. RESPIRATORY: No SOB. GASTROINTESTINAL: No abdominal pain, nausea, vomiting, diarrhea, hematemesis, melena or change in the patient's habitual bowel movements consistency/number. GENITOURINARY: No dysuria, hematuria or change in bladder continence. MUSCULOSKELETAL: No new muscle pain or decrease in muscular strength. No new joint swelling, redness or tenderness. SKIN: No new rash. Past Medical History: [Hypertension, hypothyroidism PAST SURGICAL HISTORY: Thyroidectomy PAST SOCIAL HISTORY: Denies smoking, alcohol, drug use Coded Allergies: No Known Drug Allergies (Unverified Allergy, Unknown, 07/04/16) Physical Exam: GEN: Awake, alert, oriented in person, time and place, and in no acute distress. HEENT: No sinus tenderness. Tympanic membranes were not examined. No rhinorrhea. Oral pharyngeal mucosa is pink, moist and within normal limits. CHEST: Inspection, palpation of the chest were unremarkable. Lung auscultation revealed normal breath sounds bilaterally. CARDIAC: PMI is within normal limits. Heart sounds are regular. ABD: Soft, non-tender and not distended. No peritoneal signs on palpation. No organomegaly. Normal bowel sounds. EXT: No cyanosis or clubbing. No edema. SKIN: Intact. No rashes. JOINTS: No evidence of synovitis or acute arthritis. NEURO: Alert and oriented to name, place and person. Cranial nerve examination is unremarkable. No focal motor deficits. Normal speech. Strength is normal. Vital Sign (Last 24 Hours) 05/29/25 07:36 Temp 97.0 Pulse 69 Resp 16 B/P (MAP) 129/61 Pulse Ox 97 O2 Delivery Room Air* O2 Flow Rate 0 FiO2 21 Laboratory: [ ] Laboratory: Test 05/29/25 06:39 Range/Units White Blood Count 10.1 4.8-10.8 K/uL Red Blood Count 2.09 L 4.00-5.50 MIL/uL Hemoglobin 6.4 *L 12.0-16.0 g/dL Hematocrit 19.0 *L 36-48 % Mean Corpuscular Volume 90.9 79-99 fL Mean Corpuscular Hemoglobin 30.6 27.0-33.0 pg Mean Corpuscular Hemoglobin Concent 33.7 32.0-36.0 g/dL Red Cell Distribution Width 13.6 11.0-15.5 % Platelet Count 251 130-400 K/uL Mean Platelet Volume 9.5 7.5-10.5 fL Immature Granulocyte % (Auto) 0.6 0-1 % Neutrophils (%) (Auto) 77.0 40.0-77.0 % Lymphocytes (%) (Auto) 17.2 L 21.0-51.0 % Monocytes (%) (Auto) 4.7 3.0-13.0 % Eosinophils (%) (Auto) 0.1 0.0-8.0 % Basophils (%) (Auto) 0.4 0.0-5.0 % Neutrophils # (Auto) 7.8 H 1.8-7.7 K/uL Lymphocytes # (Auto) 1.7 1.0-4.8 K/uL Monocytes # (Auto) 0.5 0.1-1.0 K/uL Eosinophils # (Auto) 0.01 0.00-0.70 K/uL Basophils # (Auto) 0.04 0.00-0.20 K/uL Absolute Immature Granulocyte (auto 0.06 0-1 K/uL Nucleated Red Blood Cells 0.0 0.0-0.19 % Reticulocyte Count (auto) 5.19701 H 0.42-2.23 % Immature Reticulocyte Fraction 29.80 H 0.18-0.48 % Prothrombin Time 11.8 H 9.6-11.6 SEC Prothromb Time International Ratio 1.13 0.85-1.15 Activated Partial Thromboplast Time 21.8 L 26.3-35.5 SEC Stool Occult Blood POSITIVE H NEGATIVE Sodium Level 141 136-145 mmol/L Potassium Level 3.0 *L 3.5-5.1 mmol/L Chloride Level 104 101-111 mmol/L Carbon Dioxide Level 21 21-32 mmol/L Blood Urea Nitrogen 14 7-18 mg/dL Creatinine 0.6 0.5-1.0 mg/dL Glomerular Filtration Rate Calc 103 >90 mL/min Random Glucose 68 L 70-105 mg/dL Total Calcium 8.0 L 8.5-10.1 mg/dL Phosphorus Level 3.7 2.5-4.9 mg/dL Magnesium Level 1.90 1.80-2.40 mg/dL Iron Level 40 L 50-170 mcg/dL Total Iron Binding Capacity 245 L 250-450 mcg/dL Percent Iron Saturation 16.3 L 22-44 % Ferritin 185 H 15-150 ng/mL Total Bilirubin 0.5 0.2-1.0 mg/dL Direct Bilirubin 0.1 0.0-0.3 mg/dL Aspartate Amino Transf (AST/SGOT) 29 10-37 U/L Alanine Aminotransferase (ALT/SGPT) 31 12-78 U/L Alkaline Phosphatase 46 L 50-136 U/L C-Reactive Protein, Quantitative 3.10 H 0.5-3.0 mg/L Total Protein 5.9 L 6.0-8.3 g/dL Albumin 3.2 L 3.5-5.0 g/dL Vitamin B12 Level 483 193-986 pg/mL Procalcitonin < 0.05 L 0.05-0.5 ng/mL Thyroid Stimulating Hormone (TSH) 1.41 # 0.36-3.74 uIU/mL Current Medications Medications (Trade) Dose Ordered Sig/Magui Route PRN Reason Start Time Stop Time Status Last Admin Dose Admin Lactated Ringer's (Lactated Ringers 1000ml) 1,000 ml BOLUS STAT IV 05/29/25 06:14 05/29/25 06:17 DC 05/29/25 07:00 1,000 ML Magnesium Sulfate 50 ml @ 0 mls/hr PROTOCOL PRN IV mgprotocol 05/29/25 08:00 06/28/25 07:59 Octreotide Acetate 1250 mcg/ Sodium Chloride 250 ml @ 0 mls/hr PROTOCOL IV 05/29/25 09:30 06/28/25 09:29 Ondansetron HCl (zoFRAN 4MG INJ) 4 mg Q6H PRN IVP NAUSEA/VOMITING 05/29/25 08:00 06/28/25 07:59 Pantoprazole Sodium 80 mg/ Sodium Chloride 100 ml @ 10 mls/hr Q10H IV 05/29/25 07:30 06/28/25 07:29 05/29/25 08:05 10 MLS/HR Potassium Chloride 100 ml @ 50 mls/hr AD PRN IV POTASSIUM PROTOCOL 05/29/25 08:00 05/29/25 08:02 DC Potassium Chloride 100 ml @ 100 mls/hr AD PRN IV POTASSIUM PROTOCOL 05/29/25 08:00 06/28/25 07:59 Potassium Chloride (K-Dur/Klor-Con 20meq) 20 meq AD PRN PO POTASSIUM PROTOCOL 05/29/25 08:00 06/28/25 07:59 Potassium Chloride (KCl 10% Elixir 20meq/15ml) 20 meq AD PRN PO POTASSIUM PROTOCOL 05/29/25 08:00 06/28/25 07:59 Sodium Chloride 1,000 ml @ 100 mls/hr Q10H IV 05/29/25 08:30 06/28/25 08:29 Diagnostics / Radiology: [COPY/PASTE HERE IF NO REPORTS PLEASE DELETE SECTION] Assessment: [ Hematochezia Gi bleed Anemia Hypotension Hypokalemia ] Plan: [Case discussed with Dr. Jones CT GI bleeding scan reviewed. Patient can have clear fluids after CT scan and then NPO after midnight Trend hemoglobin q 6 hours and transfuse as needed to goal of HGB >7 Tap water enemas tonight x 2 and then repeat 2 tap water enemas in am at 0500 Plan for Flexible sigmoidoscopy in AM. Thank you for allowing us to be part of this patient's care. ] PALMIRA MERCHANT NP May 29, 2025 09:46
[2025-05-29 11:09] VITALS: O2SAT 100
--- NOTE | 2025-05-29 11:25 | NUR ---
PROCEDURES SCHEDULED WITH [facility] (SCHEDULING DEPARTMENT): COLONOSCOPY AND SIGMOIDOSCOPY TOMORROW AT [address] BUTLER PER MD ORDERS.
[2025-05-29 12:00] VITALS: BP 136/74; PULSE 72; RESP 18; TEMP 98.2; O2SAT 100
[2025-05-29 13:00] VITALS: BP 136/74; PULSE 82; RESP 16; TEMP 98.7
--- NOTE | 2025-05-29 13:00 | NUR ---
See "provider notification" Notified Malgorzata Bailey NP/Dr. Jones of continued dark red stool (approximately 200ml in bedpan) patient reporting feeling "uncomfortable, but not in pain." Continue current plan of care and plan for sigmoidoscopy/colonoscopy in the morning as per previous orders.
--- NOTE | 2025-05-29 15:33 | NUR ---
See "provider notification" Notified Malgorzata Bailey NP/Dr. Jones of continued dark red stool (approximately 100ml in bedpan) patient reporting feeling "uncomfortable, but not in pain." Continue current plan of care and plan for sigmoidoscopy/colonoscopy in the morning as per previous orders.
--- NOTE | 2025-05-29 15:53 | HMCIMG ---
Examination NM radiolabeled red blood cell study History Gastrointestinal bleeding Technique After IV administration of Tc-99m labeled red autologous blood cells, anterior projection images of the abdomen and pelvis were obtained dynamically for one hour. Findings Following administration of radiolabeled red blood cells, there is normal activity seen in cardiovascular and genitourinary structures, the liver and spleen. There is no evidence for extravasation of radiolabeled red blood cells during the examination. IMPRESSION: No evidence of gastrointestinal hemorrhage during the course of examination acquisition. /[place]
[2025-05-29 16:00] VITALS: BP 129/68; PULSE 70; RESP 18; TEMP 98.1; O2SAT 100
[2025-05-29 18:00] VITALS: BP 129/68; PULSE 88; RESP 20; TEMP 98.4
--- NOTE | 2025-05-29 21:55 | NUR ---
AT THIS TIME PATIENT WENT TO BATHROOM IN WHEELCHAIR, NO DIZZINESS STATED, PAITENT STATED FELT GOOD TO GET UP, HAD MODERATE AMOUNT OF BRIGHT WITH DARK BLOOD, NO CLOTS SEEN, NO STOOL SEEN.
--- NOTE | 2025-05-29 22:22 | HMCIMG ---
EXAM: CR Pelvis, single view. CLINICAL HISTORY: Fall, low back pain. COMPARISON: Prior CT abdomen dated May 23, 2025 FINDINGS: No acute fracture or aggressive appearing osseous lesion. Mild degenerative changes in the bilateral medial hip joint. Mild degenerative changes in the bilateral sacroiliac joint. The soft tissues are unremarkable. IMPRESSION: 1. No acute osseous abnormality. 2. Mild degenerative changes in the bilateral medial hip joint space. /[place]
[2025-05-30] VITALS (14 sets, daily range): BP systolic 130–194; BP diastolic 50–77; PULSE 60–74; RESP 12–20; TEMP 97.5–98.2; O2SAT 98–99
[2025-05-30 00:13] LABS: APPEARANCE,URINE CLEAR (CLEAR); GLUCOSE, URINE (UA) NEGATIVE (NEGATIVE); LEUKOCYTE ESTERASE ,URINE 250 Leu/uL (NEGATIVE); NITRATE,URINE NEGATIVE (NEGATIVE); OCCULT BLOOD,URINE SMALL (NEGATIVE)
[2025-05-30 00:15] LABS: ADD UA MICROSCOPIC YES
[2025-05-30 00:16] LABS: HCG,QUALITATIVE URINE NEGATIVE (NEGATIVE)
[2025-05-30 00:23] LABS: SQUAMOUS EPITHELIAL CELL,UR RARE /HPF (0-2)
--- NOTE | 2025-05-30 01:00 | NUR ---
TAP WATER ENEMA DONE, STILL WITH DARK RED BLOOD LARGE AMOUNT, ERIC BLOOD, NO STOOL SEEN.
--- NOTE | 2025-05-30 06:36 | HMCIMG ---
EXAM: CR Chest, 1 View. CLINICAL HISTORY: Shortness of breath. COMPARISON: None provided. FINDINGS: Support lines and tubes are in the correct positions. There is no mass, infiltrate, or acute pulmonary abnormality. PLEURAL SPACES: No pleural effusion or pneumothorax. MEDIASTINUM: The cardiomediastinal silhouette is within normal limits. BONES: No acute osseous abnormality. IMPRESSION: No acute cardiopulmonary pathology is evident. /[place]
--- NOTE | 2025-05-30 07:00 | NUR ---
TAP WATER ENEMA GIVEN, MODERATE AMOUNT OF DARK BLOOD PRESENT, NO STOOL NOTED, PATIENT STATES FEELING OKAY, DENIES DIZZINESS.
[2025-05-30 07:30] LABS: IMMATURE GRANULOCYTE ABSOLUTE 0.10 K/uL (0-1); NUCLEATED RED BLOOD CELLS 0.0 % (0.0-0.19); PLATELET COUNT (AUTO) 197 K/uL (130-400); RED BLOOD CELL COUNT(AUTO) 2.23 MIL/uL (4.00-5.50); RED CELL DISTRIBUTION WIDTH 16.4 % (11.0-15.5); WHITE BLOOD COUNT (AUTO) 7.4 K/uL (4.8-10.8)
[2025-05-30 07:32] LABS: CREATININE 0.5 mg/dL (0.5-1.0); GLOMERULAR FILTR. RATE CALC 107.0 mL/min (>90); GLUCOSE,RANDOM 123.0 mg/dL (70-105); SODIUM SERUM 141.0 mmol/L (136-145); UREA NITROGEN, BLOOD 8.0 mg/dL (7-18)
--- NOTE | 2025-05-30 08:45 | NUR ---
PT TAKEN TO GI FOR SCHEDULED COLONOSCOPY
[2025-05-30] MEDS ORDERED: LIDOCAINE PF 100MG/5ML (2%) SYRINGE 5ML ONE (09:36)
--- NOTE | 2025-05-30 09:43 | PN ---
[facility] PROGRESS NOTE Date of Service: May 30, 2025 Time of Service: 09:42 SUBJECTIVE: 59-year-old female with past medical history of hypertension, hypothyroidism who presented to the hospital secondary to hematochezia and syncopal fall. The patient states she had a bowel movement 4 days ago and had blood in the stools and she decided to fast from that day and believed it would heal, she had not had a bowel movement after that again. she was having a bowel movement today when she noted that she had red color stool with her BM. During the episode she felt faint and dizzy . She was found on the ground by her in the bathroom. She tried to stand up after pooping and had syncopal fall and had loss of consciousness. She denied any headache, chest pain, shortness of breath, vomiting . She denied any hematemesis, melena. She has a had a colonoscopy done 5 days ago which is unremarkable for any findings other than internal hemorrhoids and endoscopy 4 days ago on which they found mild gastritis and biopsied the areas, from the previous admission last week which she was admitted for similar complaint. Additionally she also felt she was having some suprapubic tenderness with her bowel movement. She denied any dysuria, hematuria. 05/30/2025: The patient is awake, alert and oriented. She said that she tried walking and didn't have any syncopal episodes today. She complains of no chest pain or shortness of breadth. Patient had a flexible sigmoidoscopy scheduled today in am and it was performed by gastroenterology. She was transfused blood. Her stool occult blood came back positive. Chest Xray and NM GI showed no significant finding. Patient is concerned when can she can start eating proper meal. Two enemas done over night resulted in bloody stool. Initially she had low B.p, but it started trending up for which she was started on lisinopril 20mg. REVIEW OF SYSTEMS CONSTITUTIONAL: Denies fevers, chills, or night sweats. No unintentional weight loss reported. NEUROLOGICAL: Denies headache, amaurosis fugax, motor weakness, sensory deficit, vertigo/spinning sensation, gait abnormalities, or tremors. ENT: No hearing loss, otalgia, otorrhea, rhinitis, rhinorrhea, hoarseness, or sore throat. CARDIOVASCULAR: Denies any exertional angina, dyspnea on exertion, orthopnea, paroxysmal nocturnal dyspnea, palpitations, life-threatening arrhythmias, claudication. PULMONARY: Denies any shortness of breath, cough, phlegm/sputum, hemoptysis, pleuritic chest pain. SLEEP: Denies morning headaches, daytime somnolence or napping. Denies difficulty falling asleep, staying asleep, waking from sleep. Denies knowledge of snoring. GASTROINTESTINAL: Positive for hematochezia. Denied any nausea, vomiting, melena, hematemesis. GENITOURINARY: Denies frequency, urgency, nocturia, hematuria or incontinence (Storage/Irritative symptoms.) Low urinary stream, straining to void, urinary intermittency or hesitancy, splitting of the voiding stream, terminal dribbling. ENDOCRINOLOGIC: Denies polyuria, polydipsia, polyphagia or heat/cold intolerances. HEMATOLOGIC: Denies thrombophilia/previous clots, or coagulopathy/bleeding disorders. PSYCHIATRIC: Denies any suicidal or homicidal ideation. Denies hallucinations. PHYSICAL EXAM GENERAL APPEARANCE: The patient is awake, alert, and oriented, in no acute cardiopulmonary distress. HEENT: Face is symmetric. Pupils are equal and reactive. Extraocular movements are intact. CHEST: Normal chest expansion. No Telemetry. LUNGS: Absence of any rales, rhonchi or any wheezing. CARDIOVASCULAR: Regular. S1 and S2 normal. No appreciable rubs, murmurs or gallops. : Deferred. No Sánchez. EXTREMITIES: Non-edematous and not cyanotic. No clubbing. Good capillary refill. SKIN: No skin breakdown. Vital Signs (last 8hr) Date Time Temp Pulse Resp B/P (MAP) Pulse Ox O2 Delivery O2 Flow Rate FiO2 05/30/25 08:16 80 20 135/57 97 Room Air* 0 21 05/30/25 06:58 98.2 66 18 124/68 98 Room Air* 0 21 05/30/25 02:59 58 16 105/53 96 Room Air* 0 21 05/30/25 02:03 61 18 116/74 98 Room Air* 0 21 LABS: Laboratory: Test 05/30/25 06:51 05/29/25 23:50 05/29/25 21:25 05/29/25 11:11 Range/Units White Blood Count 7.4 4.8-10.8 K/uL Red Blood Count 2.23 L 4.00-5.50 MIL/uL Hemoglobin 6.6 *L 12.0-16.0 g/dL Hematocrit 19.9 *L 36-48 % Mean Corpuscular Volume 89.2 79-99 fL Mean Corpuscular Hemoglobin 29.6 27.0-33.0 pg Mean Corpuscular Hemoglobin Concent 33.2 32.0-36.0 g/dL Red Cell Distribution Width 16.4 H 11.0-15.5 % Platelet Count 197 130-400 K/uL Mean Platelet Volume 8.9 7.5-10.5 fL Immature Granulocyte % (Auto) 1.4 H 0-1 % Neutrophils (%) (Auto) 66.8 40.0-77.0 % Lymphocytes (%) (Auto) 23.3 21.0-51.0 % Monocytes (%) (Auto) 7.5 3.0-13.0 % Eosinophils (%) (Auto) 0.5 0.0-8.0 % Basophils (%) (Auto) 0.5 0.0-5.0 % Neutrophils # (Auto) 4.9 1.8-7.7 K/uL Lymphocytes # (Auto) 1.7 1.0-4.8 K/uL Monocytes # (Auto) 0.6 0.1-1.0 K/uL Eosinophils # (Auto) 0.04 0.00-0.70 K/uL Basophils # (Auto) 0.04 0.00-0.20 K/uL Absolute Immature Granulocyte (auto 0.10 0-1 K/uL Nucleated Red Blood Cells 0.0 0.0-0.19 % Sodium Level 141 136-145 mmol/L Potassium Level 3.9 3.5-5.1 mmol/L Chloride Level 107 101-111 mmol/L Carbon Dioxide Level 24 21-32 mmol/L Blood Urea Nitrogen 8 7-18 mg/dL Creatinine 0.5 0.5-1.0 mg/dL Glomerular Filtration Rate Calc 107 >90 mL/min Random Glucose 123 H 70-105 mg/dL Total Calcium 7.9 L 8.5-10.1 mg/dL Urine Color COLORLESS YELLOW Urine Appearance CLEAR CLEAR Urine pH 6.0 5.0-8.0 Urine Specific [place] 1.012 1.001-1.031 Urine Protein NEGATIVE NEGATIVE mg/dL Urine Glucose (UA) NEGATIVE NEGATIVE mg/dL Urine Ketones 150 H NEGATIVE mg/dL Urine Occult Blood SMALL H NEGATIVE Urine Nitrate NEGATIVE NEGATIVE Urine Bilirubin NEGATIVE NEGATIVE mg/dL Urine Urobilinogen 0.2 0.2-1.0 mg/dL Urine Leukocyte Esterase 250 H NEGATIVE Patti/uL Urine RBC 0-1 0-1 /HPF Urine WBC 26-50 H 0-1 /HPF Urine Squamous Epithelial Cells RARE 0-2 /HPF Urine Bacteria RARE None Seen /HPF Urine Hyaline Casts 2-5 H 0-1 /LPF /LPF Urine HCG, Qualitative NEGATIVE NEGATIVE Whole Blood Glucose 121 H 70-110 MG/DL Whole Blood Ketones Quantitative 3.0 H 0.0-0.6 mmol/L Lactic Acid Level 1.3 0.8-2.5 mmol/L Total Creatine Kinase 42 21-232 U/L Test 05/29/25 06:39 Range/Units Erythrocyte Sedimentation Rate 10 0-30 MM/HR Reticulocyte Count (auto) 5.41561 H 0.42-2.23 % Immature Reticulocyte Fraction 29.80 H 0.18-0.48 % Prothrombin Time 11.8 H 9.6-11.6 SEC Prothromb Time International Ratio 1.13 0.85-1.15 Activated Partial Thromboplast Time 21.8 L 26.3-35.5 SEC Stool Occult Blood POSITIVE H NEGATIVE Phosphorus Level 3.7 2.5-4.9 mg/dL Magnesium Level 1.90 1.80-2.40 mg/dL Iron Level 40 L 50-170 mcg/dL Total Iron Binding Capacity 245 L 250-450 mcg/dL Percent Iron Saturation 16.3 L 22-44 % Ferritin 185 H 15-150 ng/mL Total Bilirubin 0.5 0.2-1.0 mg/dL Direct Bilirubin 0.1 0.0-0.3 mg/dL Aspartate Amino Transf (AST/SGOT) 29 10-37 U/L Alanine Aminotransferase (ALT/SGPT) 31 12-78 U/L Alkaline Phosphatase 46 L 50-136 U/L C-Reactive Protein, Quantitative 3.10 H 0.5-3.0 mg/L Total Protein 5.9 L 6.0-8.3 g/dL Albumin 3.2 L 3.5-5.0 g/dL Vitamin B12 Level 483 193-986 pg/mL Procalcitonin < 0.05 L 0.05-0.5 ng/mL Thyroid Stimulating Hormone (TSH) 1.41 # 0.36-3.74 uIU/mL Current Medications Medications (Trade) Dose Ordered Sig/Magui Route PRN Reason Start Time Stop Time Status Last Admin Dose Admin Ceftriaxone Sodium (ROCEphine 1G INJ) 1 gm Q24H IVPB 05/30/25 05:30 06/09/25 05:29 05/30/25 06:57 1 GM Lactated Ringer's (Lactated Ringers 1000ml) 1,000 ml BOLUS STAT IV 05/29/25 06:14 05/29/25 06:17 DC 05/29/25 07:00 1,000 ML Levothyroxine Sodium (SYNTHroid 75MCG TAB) 75 mcg SYN PO 05/30/25 06:30 06/29/25 06:29 Magnesium Sulfate 50 ml @ 0 mls/hr PROTOCOL PRN IV mgprotocol 05/29/25 08:00 06/28/25 07:59 Octreotide Acetate 1250 mcg/ Sodium Chloride 250 ml @ 0 mls/hr PROTOCOL IV 05/29/25 09:30 06/28/25 09:29 05/29/25 14:01 5 MLS/HR Ondansetron HCl (zoFRAN 4MG INJ) 4 mg Q6H PRN IVP NAUSEA/VOMITING 05/29/25 08:00 06/28/25 07:59 Pantoprazole Sodium 80 mg/ Sodium Chloride 100 ml @ 10 mls/hr Q10H IV 05/29/25 07:30 06/28/25 07:29 05/30/25 07:01 10 MLS/HR Potassium Chloride 100 ml @ 50 mls/hr AD PRN IV POTASSIUM PROTOCOL 05/29/25 08:00 05/29/25 08:02 DC Potassium Chloride 100 ml @ 100 mls/hr AD PRN IV POTASSIUM PROTOCOL 05/29/25 08:00 06/28/25 07:59 Potassium Chloride (K-Dur/Klor-Con 20meq) 20 meq AD PRN PO POTASSIUM PROTOCOL 05/29/25 08:00 06/28/25 07:59 Potassium Chloride (KCl 10% Elixir 20meq/15ml) 20 meq AD PRN PO POTASSIUM PROTOCOL 05/29/25 08:00 06/28/25 07:59 Sodium Chloride 1,000 ml @ 100 mls/hr Q10H IV 05/29/25 08:30 06/28/25 08:29 05/29/25 20:59 100 MLS/HR DIAGNOSTICS / RADIOLOGY: PATIENT: QUIANA JOHN MR#: [id number] : 1965 SEX: F AGE: 59 LOCATION: [facility] ORDER STATUS: ADM IN REPORT#: [id number] SERVICE REASON: sob ORDERING PHYSICIAN: LALO BLANK MD PROCEDURE: CXR1VW - CHEST 1VW EXAM: CR Chest, 1 View. CLINICAL HISTORY: Shortness of breath. COMPARISON: None provided. FINDINGS: Support lines and tubes are in the correct positions. There is no mass, infiltrate, or acute pulmonary abnormality. PLEURAL SPACES: No pleural effusion or pneumothorax. MEDIASTINUM: The cardiomediastinal silhouette is within normal limits. BONES: No acute osseous abnormality. IMPRESSION: No acute cardiopulmonary pathology is evident. /[place] DICTATED BY: VICKIE SALAZAR MD DATE: 05/30/25734 ELECTRONICALLY SIGNED BY: VICKIE SALAZAR MD DATE: 05/30/25734 PATIENT: QUIANA JOHN MR#: [id number] : 1965 SEX: F AGE: 59 LOCATION: [facility] ORDER [id number] STATUS: ADM IN REPORT#: [id number] SERVICE 16 REASON: fall , low back pain ORDERING PHYSICIAN: LALO BLANK MD PROCEDURE: PELVIS - PELVIS 1-2VWS EXAM: CR Pelvis, single view. CLINICAL HISTORY: Fall, low back pain. COMPARISON: Prior CT abdomen dated May 23, 2025 FINDINGS: No acute fracture or aggressive appearing osseous lesion. Mild degenerative changes in the bilateral medial hip joint. Mild degenerative changes in the bilateral sacroiliac joint. The soft tissues are unremarkable. IMPRESSION: 1. No acute osseous abnormality. 2. Mild degenerative changes in the bilateral medial hip joint space. /[place] DICTATED BY: GIBSON RODRIGUEZ Jr., MD DATE: 05/29/252320 ELECTRONICALLY SIGNED BY: GIBSON RODRIGUEZ Jr., MD DATE: 05/29/252320 ASSESSMENT: Acute GI Bleed symptomatic iron deficiency Anemia History of diverticulosis Syncopal fall Hypertension Hypothyroidism PLAN: Patient admitted to Med/surg with TELE Acute GI Bleed, Syncopal Fall, Anemia Patient started on Pantoprazole Drip. Octreotide stopped Gastroenterology consulted on the case Nuclear medicine GI blood loss Imaging has been ordered that showed no active bleed. Patient planned for flexible sigmoidoscopy by gastroenterology that showed no active bleeding. Waiting for gastroenterology follow up. Will trend H&H Q 8 Zofran for nausea Maintain hemoglobin above 7g/dl, 3 unit transfused today. Stool occult blood is positive Started on ceftriaxone and flagyl. Hypertension, hypothyroidism Continue the Levothyroxine Started on lisinopril 20 mg due to up trending blood pressure DVT prophylaxis with SCDs PHYSICIAN RESIDENT STATEMENT I was present with the resident during the History and Physical exam and I have reviewed the resident's note. This case was discussed with the resident and I agree with the history, physical exam and medical decision making as documented. Additions/exceptions/observations were directly added to the notes. Filiberto Sahu MD, SYED M MD May 30, 2025 09:43
--- NOTE | 2025-05-30 10:45 | NUR ---
PT CARE TAKEN OVER PT CAME FROM GI LAB
--- NOTE | 2025-05-30 11:37 | NUR ---
report to [facility] 2nd floor
--- NOTE | 2025-05-30 11:41 | NUR ---
BLOOD PRODUCTS FINISHED VSS NAD
[2025-05-30] MEDS: LISINOPRIL 20 MG TABLET PO ONE (12:32)
--- NOTE | 2025-05-30 14:48 | NUR ---
DCP: HOME Pt currently lives with her sps in their home. Pt does not report insecurities with food, chcf, and/or utilities. Pt does not have any DME, home health, or provider services. Pt states that she is able to complete ADLs independently.PCP is Dr. Cristina Haynes [facility]. At [place] pt will want to go home and family will assist with transportation. Addendum: 05/30/25 at 1455 by HAM MCKEE SS Amended: Links added.
[2025-05-30 17:08] LABS: IMMATURE GRANULOCYTE ABSOLUTE 0.11 K/uL (0-1); NUCLEATED RED BLOOD CELLS 0.0 % (0.0-0.19); PLATELET COUNT (AUTO) 179 K/uL (130-400); RED BLOOD CELL COUNT(AUTO) 2.77 MIL/uL (4.00-5.50); RED CELL DISTRIBUTION WIDTH 15.3 % (11.0-15.5); WHITE BLOOD COUNT (AUTO) 8.1 K/uL (4.8-10.8)
[2025-05-30 21:13] LABS: IMMATURE GRANULOCYTE ABSOLUTE 0.07 K/uL (0-1); NUCLEATED RED BLOOD CELLS 0.0 % (0.0-0.19); PLATELET COUNT (AUTO) 175 K/uL (130-400); RED BLOOD CELL COUNT(AUTO) 2.77 MIL/uL (4.00-5.50); RED CELL DISTRIBUTION WIDTH 15.1 % (11.0-15.5); WHITE BLOOD COUNT (AUTO) 7.5 K/uL (4.8-10.8)
[2025-05-30] MEDS: LISINOPRIL 20 MG TABLET PO SCH (21:28)
[2025-05-31] VITALS (8 sets, daily range): BP systolic 115–139; BP diastolic 59–76; PULSE 57–69; RESP 16–20; TEMP 97.3–98.4; O2SAT 98
[2025-05-31 05:14] LABS: CREATININE 0.4 mg/dL (0.5-1.0); GLOMERULAR FILTR. RATE CALC 113.0 mL/min (>90); GLUCOSE,RANDOM 97.0 mg/dL (70-105); SODIUM SERUM 143.0 mmol/L (136-145); UREA NITROGEN, BLOOD 7.0 mg/dL (7-18)
[2025-05-31 05:45] LABS: IMMATURE GRANULOCYTE ABSOLUTE 0.06 K/uL (0-1); NUCLEATED RED BLOOD CELLS 0.0 % (0.0-0.19); PLATELET COUNT (AUTO) 187 K/uL (130-400); RED BLOOD CELL COUNT(AUTO) 2.67 MIL/uL (4.00-5.50); RED CELL DISTRIBUTION WIDTH 15.2 % (11.0-15.5); WHITE BLOOD COUNT (AUTO) 7.0 K/uL (4.8-10.8)
[2025-05-31] MEDS: PoTASSium chloRIDE 20MEQ ER 20 MEQ ERTAB PO PRN (06:12)
[2025-05-31] MEDS: PSYLLIUM SEED 1 EACH PACKET PO SCH (08:30)
[2025-05-31] MEDS: PoTASSium chl 10% ELIXIR 20MEQ 20 MEQ/15 ML UDCUP PO PRN (08:33)
[2025-05-31 08:52] LABS: IMMATURE GRANULOCYTE ABSOLUTE 0.06 K/uL (0-1); NUCLEATED RED BLOOD CELLS 0.0 % (0.0-0.19); PLATELET COUNT (AUTO) 184 K/uL (130-400); RED BLOOD CELL COUNT(AUTO) 2.72 MIL/uL (4.00-5.50); RED CELL DISTRIBUTION WIDTH 15.5 % (11.0-15.5); WHITE BLOOD COUNT (AUTO) 7.2 K/uL (4.8-10.8)
--- NOTE | 2025-05-31 10:39 | NUR ---
Bloody stool reported. No acute distress noted.
--- NOTE | 2025-05-31 11:07 | PN ---
[facility] PROGRESS NOTE Date of Service: May 31, 2025 Time of Service: 11:02 SUBJECTIVE: 59-year-old female with past medical history of hypertension, hypothyroidism who presented to the hospital secondary to hematochezia and syncopal fall. The patient states she had a bowel movement 4 days ago and had blood in the stools and she decided to fast from that day and believed it would heal, she had not had a bowel movement after that again. she was having a bowel movement today when she noted that she had red color stool with her BM. During the episode she felt faint and dizzy . She was found on the ground by her in the bathroom. She tried to stand up after pooping and had syncopal fall and had loss of consciousness. She denied any headache, chest pain, shortness of breath, vomiting . She denied any hematemesis, melena. She has a had a colonoscopy done 5 days ago which is unremarkable for any findings other than internal hemorrhoids and endoscopy 4 days ago on which they found mild gastritis and biopsied the areas, from the previous admission last week which she was admitted for similar complaint. Additionally she also felt she was having some suprapubic tenderness with her bowel movement. She denied any dysuria, hematuria. 05/30/2025: The patient is awake, alert and oriented. She said that she tried walking and didn't have any syncopal episodes today. She complains of no chest pain or shortness of breadth. Patient had a flexible sigmoidoscopy scheduled today in am and it was performed by gastroenterology. She was transfused blood. Her stool occult blood came back positive. Chest Xray and NM GI showed no significant finding. Patient is concerned when can she can start eating proper meal. Two enemas done over night resulted in bloody stool. Initially she had low B.p, but it started trending up for which she was started on lisinopril 20mg. 05/31/2025: The patient is awake, alert and oriented. The patient didn't have a bowel movement in the morning but she was slowly having the urge to defecate. Eventually, the patient passed stool that was bloody. She complains of no chest pain or shortness of breath. He blood pressure today was 120/66, pulse is 57. Today her hemoglobin is 8.2, and no blood was transfused. Her potassium was 3.3, which was replaced according to protocol. REVIEW OF SYSTEMS CONSTITUTIONAL: Denies fevers, chills, or night sweats. No unintentional weight loss reported. NEUROLOGICAL: Denies headache, amaurosis fugax, motor weakness, sensory deficit, vertigo/spinning sensation, gait abnormalities, or tremors. ENT: No hearing loss, otalgia, otorrhea, rhinitis, rhinorrhea, hoarseness, or sore throat. CARDIOVASCULAR: Denies any exertional angina, dyspnea on exertion, orthopnea, paroxysmal nocturnal dyspnea, palpitations, life-threatening arrhythmias, cl audication. PULMONARY: Denies any shortness of breath, cough, phlegm/sputum, hemoptysis, pleuritic chest pain. SLEEP: Denies morning headaches, daytime somnolence or napping. Denies difficulty falling asleep, staying asleep, waking from sleep. Denies knowledge of snoring. GASTROINTESTINAL: Positive for hematochezia. Denied any nausea, vomiting, melena, hematemesis. GENITOURINARY: Denies frequency, urgency, nocturia, hematuria or incontinence (Storage/Irritative symptoms.) Low urinary stream, straining to void, urinary intermittency or hesitancy, splitting of the voiding stream, terminal dribbling. ENDOCRINOLOGIC: Denies polyuria, polydipsia, polyphagia or heat/cold intolerances. HEMATOLOGIC: Denies thrombophilia/previous clots, or coagulopathy/bleeding disorders. PSYCHIATRIC: Denies any suicidal or homicidal ideation. Denies hallucinations. PHYSICAL EXAM GENERAL APPEARANCE: The patient is awake, alert, and oriented, in no acute cardiopulmonary distress. HEENT: Face is symmetric. Pupils are equal and reactive. Extraocular movements are intact. CHEST: Normal chest expansion. No Telemetry. LUNGS: Absence of any rales, rhonchi or any wheezing. CARDIOVASCULAR: Regular. S1 and S2 normal. No appreciable rubs, murmurs or gallops. : Deferred. No Sánchez. EXTREMITIES: Non-edematous and not cyanotic. No clubbing. Good capillary refill. SKIN: No skin breakdown. Vital Signs (last 8hr) Date Time Temp Pulse Resp B/P (MAP) Pulse Ox O2 Delivery O2 Flow Rate FiO2 05/31/25 08:04 98.2 60 16 126/68 98 Room Air 05/31/25 08:00 98 Room Air* 0 21 05/31/25 03:20 97.3 57 18 120/66 98 Room Air LABS: Laboratory: Test 05/31/25 08:35 05/31/25 04:35 05/30/25 21:10 05/29/25 23:50 Range/Units White Blood Count 7.2 4.8-10.8 K/uL Red Blood Count 2.72 L 4.00-5.50 MIL/uL Hemoglobin 8.2 L 12.0-16.0 g/dL Hematocrit 23.9 L 36-48 % Mean Corpuscular Volume 87.9 79-99 fL Mean Corpuscular Hemoglobin 30.1 27.0-33.0 pg Mean Corpuscular Hemoglobin Concent 34.3 32.0-36.0 g/dL Red Cell Distribution Width 15.5 11.0-15.5 % Platelet Count 184 130-400 K/uL Mean Platelet Volume 8.7 7.5-10.5 fL Immature Granulocyte % (Auto) 0.8 0-1 % Neutrophils (%) (Auto) 76.0 40.0-77.0 % Lymphocytes (%) (Auto) 16.6 L 21.0-51.0 % Monocytes (%) (Auto) 5.6 3.0-13.0 % Eosinophils (%) (Auto) 0.7 0.0-8.0 % Basophils (%) (Auto) 0.3 0.0-5.0 % Neutrophils # (Auto) 5.5 1.8-7.7 K/uL Lymphocytes # (Auto) 1.2 1.0-4.8 K/uL Monocytes # (Auto) 0.4 0.1-1.0 K/uL Eosinophils # (Auto) 0.05 0.00-0.70 K/uL Basophils # (Auto) 0.02 0.00-0.20 K/uL Absolute Immature Granulocyte (auto 0.06 0-1 K/uL Nucleated Red Blood Cells 0.0 0.0-0.19 % Sodium Level 143 136-145 mmol/L Potassium Level 3.3 L 3.5-5.1 mmol/L Chloride Level 107 101-111 mmol/L Carbon Dioxide Level 27 21-32 mmol/L Blood Urea Nitrogen 7 7-18 mg/dL Creatinine 0.4 L 0.5-1.0 mg/dL Glomerular Filtration Rate Calc 113 >90 mL/min Random Glucose 97 70-105 mg/dL Total Calcium 7.9 L 8.5-10.1 mg/dL Whole Blood Glucose 96 70-110 MG/DL Urine Color COLORLESS YELLOW Urine Appearance CLEAR CLEAR Urine pH 6.0 5.0-8.0 Urine Specific [place] 1.012 1.001-1.031 Urine Protein NEGATIVE NEGATIVE mg/dL Urine Glucose (UA) NEGATIVE NEGATIVE mg/dL Urine Ketones 150 H NEGATIVE mg/dL Urine Occult Blood SMALL H NEGATIVE Urine Nitrate NEGATIVE NEGATIVE Urine Bilirubin NEGATIVE NEGATIVE mg/dL Urine Urobilinogen 0.2 0.2-1.0 mg/dL Urine Leukocyte Esterase 250 H NEGATIVE Patti/uL Urine RBC 0-1 0-1 /HPF Urine WBC 26-50 H 0-1 /HPF Urine Squamous Epithelial Cells RARE 0-2 /HPF Urine Bacteria RARE None Seen /HPF Urine Hyaline Casts 2-5 H 0-1 /LPF /LPF Urine HCG, Qualitative NEGATIVE NEGATIVE Test 05/29/25 11:11 Range/Units Whole Blood Ketones Quantitative 3.0 H 0.0-0.6 mmol/L Lactic Acid Level 1.3 0.8-2.5 mmol/L Total Creatine Kinase 42 21-232 U/L Current Medications Medications (Trade) Dose Ordered Sig/Magui Route PRN Reason Start Time Stop Time Status Last Admin Dose Admin Ceftriaxone Sodium (ROCEphine 1G INJ) 1 gm Q24H IVPB 05/30/25 05:30 06/09/25 05:29 05/31/25 05:07 1 GM Lactated Ringer's (Lactated Ringers 1000ml) 1,000 ml BOLUS STAT IV 05/29/25 06:14 05/29/25 06:17 DC 05/29/25 07:00 1,000 ML Levothyroxine Sodium (SYNTHroid 75MCG TAB) 75 mcg SYN PO 05/30/25 06:30 06/29/25 06:29 05/31/25 06:13 75 MCG Lisinopril (Prinivil 20mg) 20 mg HS PO 05/30/25 21:00 06/29/25 20:59 05/30/25 21:28 20 MG Magnesium Sulfate 50 ml @ 0 mls/hr PROTOCOL PRN IV mgprotocol 05/29/25 08:00 06/28/25 07:59 Metronidazole/ Sodium Chloride (flaGYL) 500 mg Q8H IV 05/30/25 13:00 06/09/25 12:59 05/31/25 05:07 500 MG Octreotide Acetate 1250 mcg/ Sodium Chloride 250 ml @ 0 mls/hr PROTOCOL IV 05/29/25 09:30 05/30/25 12:31 DC 05/29/25 14:01 5 MLS/HR Ondansetron HCl (zoFRAN 4MG INJ) 4 mg Q6H PRN IVP NAUSEA/VOMITING 05/29/25 08:00 06/28/25 07:59 Pantoprazole Sodium (PROTonix 40MG TAB) 40 mg BID PO 05/30/25 21:00 06/29/25 20:59 05/31/25 08:34 40 MG Pantoprazole Sodium 80 mg/ Sodium Chloride 100 ml @ 10 mls/hr Q10H IV 05/29/25 07:30 05/30/25 12:35 DC 05/30/25 07:01 10 MLS/HR Potassium Chloride 100 ml @ 50 mls/hr AD PRN IV POTASSIUM PROTOCOL 05/29/25 08:00 05/29/25 08:02 DC Potassium Chloride 100 ml @ 100 mls/hr AD PRN IV POTASSIUM PROTOCOL 05/29/25 08:00 06/28/25 07:59 Potassium Chloride (K-Dur/Klor-Con 20meq) 20 meq AD PRN PO POTASSIUM PROTOCOL 05/29/25 08:00 06/28/25 07:59 05/31/25 06:12 20 MEQ Potassium Chloride (KCl 10% Elixir 20meq/15ml) 20 meq AD PRN PO POTASSIUM PROTOCOL 05/29/25 08:00 06/28/25 07:59 05/31/25 08:33 20 MEQ Psyllium Hydrophilic Mucilloid (Metamucil) 1 tbs DAILY PO 05/31/25 09:00 06/30/25 08:59 05/31/25 08:30 1 TBS Sodium Chloride 1,000 ml @ 100 mls/hr Q10H IV 05/29/25 08:30 06/28/25 08:29 05/31/25 08:35 100 MLS/HR DIAGNOSTICS / RADIOLOGY: [ ] ASSESSMENT: Acute GI Bleed symptomatic iron deficiency Anemia History of diverticulosis Syncopal fall Hypertension Hypothyroidism PLAN: Acute GI Bleed, Syncopal Fall, Anemia Patient started on Pantoprazole Drip. Octreotide stopped Gastroenterology consulted on the case Nuclear medicine GI blood loss Imaging has been ordered that showed no active bleed. Patient planned for flexible sigmoidoscopy by gastroenterology that showed no active bleeding. Avoid NSAID Will trend H&H Q 8 Zofran for nausea Maintain hemoglobin above 7g/dl, 2 unit transfused till now. Hemoglobin is 8.2 today. Stool occult blood is positive Started on ceftriaxone ( day 2) and flagyl (day 2) Hypokalemia Potassium is 3.3 today. Replace according to protocol Hypertension, hypothyroidism Continue the Levothyroxine Started on lisinopril 20 mg due to up trending blood pressure DVT prophylaxis with SCDs PHYSICIAN RESIDENT STATEMENT I was present with the resident during the History and Physical exam and I have reviewed the resident's note. This case was discussed with the resident and I agree with the history, physical exam and medical decision making as documented. Additions/exceptions/observations were directly added to the notes. Filiberto Sahu MD, SYED M MD May 31, 2025 11:07
--- NOTE | 2025-05-31 12:10 | PN ---
GASTROENTEROLOGY PROGRESS NOTE Date of Visit: May 31, 2025 Time of Visit: 12:09 Events / Notes: [ No acute events overnight. Patient's vital signs have remained stable. Hemoglobin has been holding at 8.2, platelets 184. WBC of 7.2. Chemistry significant for potassium of 3.3, creatinine 0.4, calcium 7.9. Patient has tolerated clear fluids. Per nurses report patient has had 1 dark tarry stool.VSS. Patient resting in SF in no acute distress with her children at bedside. She reports having dark very soft stool. POC discussed and informed of need to continue trending HGB. Recommendations to avoid foods that can trigger irritation such as fried foods, spicy foods, carbonated and caffeinated drinks, acidic foods (citrus fruids), chocolate, and foods with tomatoes and tomato sauces. She stated she cooks a lot with tomato based buillon. ] Review of Systems: CONSTITUTIONAL: No malaise or change in sensation of wellbeing. ENMT: No rhinorrhea, otorrhea, sinus pain, ear ache. CARDIOVASCULAR: No angina, palpitations, orthopnea or paroxysmal dyspnea. RESPIRATORY: No SOB. GASTROINTESTINAL: No abdominal pain, nausea, vomiting, diarrhea, hematemesis, melena reported. GENITOURINARY: No dysuria, hematuria or change in bladder continence. MUSCULOSKELETAL: No new muscle pain or decrease in muscular strength. No new joint swelling, redness or tenderness. SKIN: No new rash. Physical Exam: GEN: Awake, alert, oriented in person, time and place, and in no acute distress. HEENT: No rhinorrhea. Oral pharyngeal mucosa is pink, moist and within normal limits. CHEST: Respirations unlabored. CARDIAC:Regular rate ABD: Soft, non-tender and not distended. EXT: No cyanosis or clubbing. No edema. SKIN: Intact. No rashes. JOINTS: No evidence of synovitis or acute arthritis. NEURO: Alert and oriented to name, place and person. Cranial nerve examination is unremarkable. No focal motor deficits. Normal speech. Strength is normal. Vital Signs (last 8hr) Date Time Temp Pulse Resp B/P (MAP) Pulse Ox O2 Delivery O2 Flow Rate FiO2 05/31/25 08:04 98.2 60 16 126/68 98 Room Air 05/31/25 08:00 98 Room Air* 0 21 Laboratory: [ ] Laboratory: Test 05/31/25 08:35 05/31/25 04:35 05/30/25 21:10 05/29/25 23:50 Range/Units White Blood Count 7.2 4.8-10.8 K/uL Red Blood Count 2.72 L 4.00-5.50 MIL/uL Hemoglobin 8.2 L 12.0-16.0 g/dL Hematocrit 23.9 L 36-48 % Mean Corpuscular Volume 87.9 79-99 fL Mean Corpuscular Hemoglobin 30.1 27.0-33.0 pg Mean Corpuscular Hemoglobin Concent 34.3 32.0-36.0 g/dL Red Cell Distribution Width 15.5 11.0-15.5 % Platelet Count 184 130-400 K/uL Mean Platelet Volume 8.7 7.5-10.5 fL Immature Granulocyte % (Auto) 0.8 0-1 % Neutrophils (%) (Auto) 76.0 40.0-77.0 % Lymphocytes (%) (Auto) 16.6 L 21.0-51.0 % Monocytes (%) (Auto) 5.6 3.0-13.0 % Eosinophils (%) (Auto) 0.7 0.0-8.0 % Basophils (%) (Auto) 0.3 0.0-5.0 % Neutrophils # (Auto) 5.5 1.8-7.7 K/uL Lymphocytes # (Auto) 1.2 1.0-4.8 K/uL Monocytes # (Auto) 0.4 0.1-1.0 K/uL Eosinophils # (Auto) 0.05 0.00-0.70 K/uL Basophils # (Auto) 0.02 0.00-0.20 K/uL Absolute Immature Granulocyte (auto 0.06 0-1 K/uL Nucleated Red Blood Cells 0.0 0.0-0.19 % Sodium Level 143 136-145 mmol/L Potassium Level 3.3 L 3.5-5.1 mmol/L Chloride Level 107 101-111 mmol/L Carbon Dioxide Level 27 21-32 mmol/L Blood Urea Nitrogen 7 7-18 mg/dL Creatinine 0.4 L 0.5-1.0 mg/dL Glomerular Filtration Rate Calc 113 >90 mL/min Random Glucose 97 70-105 mg/dL Total Calcium 7.9 L 8.5-10.1 mg/dL Whole Blood Glucose 96 70-110 MG/DL Urine Color COLORLESS YELLOW Urine Appearance CLEAR CLEAR Urine pH 6.0 5.0-8.0 Urine Specific [place] 1.012 1.001-1.031 Urine Protein NEGATIVE NEGATIVE mg/dL Urine Glucose (UA) NEGATIVE NEGATIVE mg/dL Urine Ketones 150 H NEGATIVE mg/dL Urine Occult Blood SMALL H NEGATIVE Urine Nitrate NEGATIVE NEGATIVE Urine Bilirubin NEGATIVE NEGATIVE mg/dL Urine Urobilinogen 0.2 0.2-1.0 mg/dL Urine Leukocyte Esterase 250 H NEGATIVE Patti/uL Urine RBC 0-1 0-1 /HPF Urine WBC 26-50 H 0-1 /HPF Urine Squamous Epithelial Cells RARE 0-2 /HPF Urine Bacteria RARE None Seen /HPF Urine Hyaline Casts 2-5 H 0-1 /LPF /LPF Urine HCG, Qualitative NEGATIVE NEGATIVE Current Medications Medications (Trade) Dose Ordered Sig/Magui Route PRN Reason Start Time Stop Time Status Last Admin Dose Admin Ceftriaxone Sodium (ROCEphine 1G INJ) 1 gm Q24H IVPB 05/30/25 05:30 06/09/25 05:29 05/31/25 05:07 1 GM Lactated Ringer's (Lactated Ringers 1000ml) 1,000 ml BOLUS STAT IV 05/29/25 06:14 05/29/25 06:17 DC 05/29/25 07:00 1,000 ML Levothyroxine Sodium (SYNTHroid 75MCG TAB) 75 mcg SYN PO 05/30/25 06:30 06/29/25 06:29 05/31/25 06:13 75 MCG Lisinopril (Prinivil 20mg) 20 mg HS PO 05/30/25 21:00 06/29/25 20:59 05/30/25 21:28 20 MG Magnesium Sulfate 50 ml @ 0 mls/hr PROTOCOL PRN IV mgprotocol 05/29/25 08:00 06/28/25 07:59 Metronidazole/ Sodium Chloride (flaGYL) 500 mg Q8H IV 05/30/25 13:00 06/09/25 12:59 05/31/25 05:07 500 MG Octreotide Acetate 1250 mcg/ Sodium Chloride 250 ml @ 0 mls/hr PROTOCOL IV 05/29/25 09:30 05/30/25 12:31 DC 05/29/25 14:01 5 MLS/HR Ondansetron HCl (zoFRAN 4MG INJ) 4 mg Q6H PRN IVP NAUSEA/VOMITING 05/29/25 08:00 06/28/25 07:59 Pantoprazole Sodium (PROTonix 40MG TAB) 40 mg BID PO 05/30/25 21:00 06/29/25 20:59 05/31/25 08:34 40 MG Pantoprazole Sodium 80 mg/ Sodium Chloride 100 ml @ 10 mls/hr Q10H IV 05/29/25 07:30 05/30/25 12:35 DC 05/30/25 07:01 10 MLS/HR Potassium Chloride 100 ml @ 50 mls/hr AD PRN IV POTASSIUM PROTOCOL 05/29/25 08:00 05/29/25 08:02 DC Potassium Chloride 100 ml @ 100 mls/hr AD PRN IV POTASSIUM PROTOCOL 05/29/25 08:00 06/28/25 07:59 Potassium Chloride (K-Dur/Klor-Con 20meq) 20 meq AD PRN PO POTASSIUM PROTOCOL 05/29/25 08:00 06/28/25 07:59 05/31/25 06:12 20 MEQ Potassium Chloride (KCl 10% Elixir 20meq/15ml) 20 meq AD PRN PO POTASSIUM PROTOCOL 05/29/25 08:00 06/28/25 07:59 05/31/25 08:33 20 MEQ Psyllium Hydrophilic Mucilloid (Metamucil) 1 tbs DAILY PO 05/31/25 09:00 06/30/25 08:59 05/31/25 08:30 1 TBS Sodium Chloride 1,000 ml @ 100 mls/hr Q10H IV 05/29/25 08:30 06/28/25 08:29 05/31/25 08:35 100 MLS/HR Diagnostics / Radiology: [COPY/PASTE HERE IF NO REPORTS PLEASE DELETE SECTION] Assessment: [ Hematochezia Gi bleed Anemia Hypotension Hypokalemia ] Plan: [Case discussed with Dr. Jones Advance diet as tolerated CT GI bleeding scan reviewed. Avoid NSAIDS Trend hemoglobin q 6 hours and transfuse as needed to goal of HGB >7 Please call with questions, concerns, and change in clinical status. Thank you for allowing us to be part of this patient's care. ] PALMIRA [employer] REPRESENT[employer]IVE May 31, 2025 12:10
--- NOTE | 2025-05-31 14:00 | NUR ---
SPEECH TRIGGER COMPLETED / SYNCOPE Pt IS A 59 Y.O. FEMALE ADMITTED SECONDARY TO ACUTE GI BLEED AND SYNCOPE. Pt HAS A PAST MEDICAL HISTORY SIGNIFICANT FOR HYPERTENSION AND HYPOTHYROIDISM. PATIENT PRESENTED WITH NO PULMONARY INFILTRATES ON MOST RECENT CHEST X-RAY DURING THIS ADMISSION. Pt CURRENTLY ON GI SOFT/BLAND DIET (REGULAR TEXTURE AND THIN LIQUIDS). PER NURSE AMAYA, Pt TOLERATING DIET WITH NO OVERT S/S OF ASPIRATION. PLEASE REQUEST SPEECH THERAPY SERVICES FOR SKILLED BEDSIDE SWALLOW EVALUATION IF Pt PRESENTS WITH +S/S OF ASPIRATION SUCH COUGH RESPONSE, THROAT CLEAR, OR WET VOCAL QUALITY DURING ORAL INTAKE. ALL QUESTIONS ANSWERED AT THIS TIME. Addendum: 05/31/[address] [facility]ENE PONCE Amended: Links added.
[2025-05-31 14:27] LABS: IMMATURE GRANULOCYTE ABSOLUTE 0.05 K/uL (0-1); NUCLEATED RED BLOOD CELLS 0.0 % (0.0-0.19); PLATELET COUNT (AUTO) 188 K/uL (130-400); RED BLOOD CELL COUNT(AUTO) 2.60 MIL/uL (4.00-5.50); RED CELL DISTRIBUTION WIDTH 15.6 % (11.0-15.5); WHITE BLOOD COUNT (AUTO) 7.2 K/uL (4.8-10.8)
[2025-05-31 20:33] LABS: IMMATURE GRANULOCYTE ABSOLUTE 0.09 K/uL (0-1); NUCLEATED RED BLOOD CELLS 0.0 % (0.0-0.19); PLATELET COUNT (AUTO) 216 K/uL (130-400); RED BLOOD CELL COUNT(AUTO) 2.83 MIL/uL (4.00-5.50); RED CELL DISTRIBUTION WIDTH 15.8 % (11.0-15.5); WHITE BLOOD COUNT (AUTO) 8.8 K/uL (4.8-10.8)
[2025-06-01] VITALS (8 sets, daily range): BP systolic 108–145; BP diastolic 65–78; PULSE 64–71; RESP 16–18; TEMP 97.7–98.6; O2SAT 97–100
[2025-06-01 00:40] LABS: IMMATURE GRANULOCYTE ABSOLUTE 0.04 K/uL (0-1); NUCLEATED RED BLOOD CELLS 0.0 % (0.0-0.19); PLATELET COUNT (AUTO) 185 K/uL (130-400); RED BLOOD CELL COUNT(AUTO) 2.49 MIL/uL (4.00-5.50); RED CELL DISTRIBUTION WIDTH 15.4 % (11.0-15.5); WHITE BLOOD COUNT (AUTO) 7.3 K/uL (4.8-10.8)
[2025-06-01 04:18] LABS: IMMATURE GRANULOCYTE ABSOLUTE 0.03 K/uL (0-1); NUCLEATED RED BLOOD CELLS 0.0 % (0.0-0.19); PLATELET COUNT (AUTO) 182 K/uL (130-400); RED BLOOD CELL COUNT(AUTO) 2.51 MIL/uL (4.00-5.50); RED CELL DISTRIBUTION WIDTH 15.8 % (11.0-15.5); WHITE BLOOD COUNT (AUTO) 6.6 K/uL (4.8-10.8)
[2025-06-01 04:40] LABS: CREATININE 0.4 mg/dL (0.5-1.0); GLOMERULAR FILTR. RATE CALC 113.0 mL/min (>90); GLUCOSE,RANDOM 102.0 mg/dL (70-105); SODIUM SERUM 143.0 mmol/L (136-145); UREA NITROGEN, BLOOD 10.0 mg/dL (7-18)
--- NOTE | 2025-06-01 13:04 | PN ---
GASTROENTEROLOGY PROGRESS NOTE Date of Visit: Jun 01, 2025 Time of Visit: 13:04 Events / Notes: [ No acute events overnight. Patient's vital signs have remained stable. Hemoglobin has been holding at 8.2, platelets 184. WBC of 7.2. Chemistry significant for potassium of 3.3, creatinine 0.4, calcium 7.9. Patient has tolerated clear fluids. Per nurses report patient has had 1 dark tarry stool.VSS. Patient resting in SF in no acute distress with her children at bedside. She reports having dark very soft stool. POC discussed and informed of need to continue trending HGB. Recommendations to avoid foods that can trigger irritation such as fried foods, spicy foods, carbonated and caffeinated drinks, acidic foods (citrus fruids), chocolate, and foods with tomatoes and tomato sauces. She stated she cooks a lot with tomato based buillon. . 06/01/25:Patient's hemoglobin has trended down to 7.6 today. Platelets are 182. Potassium 3.2, creatinine 0.4, calcium 7.6. Her vital signs are stable. She continues receiving iron infusion. On exam she is resting in no acute distress. Respirations are unlabored. She states she has not had a bowel movement today. Informed we will continue to monitor hemoglobin and transfuse as needed. She began taking fiber today and encouraged daily supplemental fiber intake after discharge. She verbalized understanding and agreement. ] Review of Systems: CONSTITUTIONAL: No malaise or change in sensation of wellbeing. ENMT: No rhinorrhea, otorrhea, sinus pain, ear ache. CARDIOVASCULAR: No angina, palpitations, orthopnea or paroxysmal dyspnea. RESPIRATORY: No SOB. GASTROINTESTINAL: No abdominal pain, nausea, vomiting, diarrhea, hematemesis, me raine or change in the patient's habitual bowel movements consistency/number. GENITOURINARY: No dysuria, hematuria or change in bladder continence. MUSCULOSKELETAL: No new muscle pain or decrease in muscular strength. No new joint swelling, redness or tenderness. SKIN: No new rash. Physical Exam: GEN: Awake, alert, oriented in person, time and place, and in no acute distress. HEENT: No rhinorrhea. Oral pharyngeal mucosa is moist. CHEST: Respirations unlabored. CARDIAC: Heart sounds are regular. ABD: Soft, non-tender and not distended. EXT: No cyanosis or clubbing. No edema. SKIN: Intact. No rashes. JOINTS: No evidence of synovitis or acute arthritis. NEURO: Alert and oriented to name, place and person. Cranial nerve examination is unremarkable. No focal motor deficits. Normal speech. Strength is normal. Vital Signs (last 8hr) Date Time Temp Pulse Resp B/P (MAP) Pulse Ox O2 Delivery O2 Flow Rate FiO2 06/01/25 12:00 98.1 71 16 132/74 98 Room Air 06/01/25 10:46 100 Room Air* 0 21 06/01/25 08:48 98.1 64 16 108/76 100 Room Air Laboratory: [ ] Laboratory: Test 06/01/25 04:06 05/30/25 21:10 Range/Units White Blood Count 6.6 4.8-10.8 K/uL Red Blood Count 2.51 L 4.00-5.50 MIL/uL Hemoglobin 7.6 L 12.0-16.0 g/dL Hematocrit 22.4 L 36-48 % Mean Corpuscular Volume 89.2 79-99 fL Mean Corpuscular Hemoglobin 30.3 27.0-33.0 pg Mean Corpuscular Hemoglobin Concent 33.9 32.0-36.0 g/dL Red Cell Distribution Width 15.8 H 11.0-15.5 % Platelet Count 182 130-400 K/uL Mean Platelet Volume 9.1 7.5-10.5 fL Immature Granulocyte % (Auto) 0.5 0-1 % Neutrophils (%) (Auto) 67.4 40.0-77.0 % Lymphocytes (%) (Auto) 23.2 21.0-51.0 % Monocytes (%) (Auto) 7.5 3.0-13.0 % Eosinophils (%) (Auto) 1.1 0.0-8.0 % Basophils (%) (Auto) 0.3 0.0-5.0 % Neutrophils # (Auto) 4.4 1.8-7.7 K/uL Lymphocytes # (Auto) 1.5 1.0-4.8 K/uL Monocytes # (Auto) 0.5 0.1-1.0 K/uL Eosinophils # (Auto) 0.07 0.00-0.70 K/uL Basophils # (Auto) 0.02 0.00-0.20 K/uL Absolute Immature Granulocyte (auto 0.03 0-1 K/uL Nucleated Red Blood Cells 0.0 0.0-0.19 % Sodium Level 143 136-145 mmol/L Potassium Level 3.2 L 3.5-5.1 mmol/L Chloride Level 109 101-111 mmol/L Carbon Dioxide Level 27 21-32 mmol/L Blood Urea Nitrogen 10 7-18 mg/dL Creatinine 0.4 L 0.5-1.0 mg/dL Glomerular Filtration Rate Calc 113 >90 mL/min Random Glucose 102 70-105 mg/dL Total Calcium 7.6 L 8.5-10.1 mg/dL Whole Blood Glucose 96 70-110 MG/DL Current Medications Medications (Trade) Dose Ordered Sig/Magui Route PRN Reason Start Time Stop Time Status Last Admin Dose Admin Ceftriaxone Sodium (ROCEphine 1G INJ) 1 gm Q24H IVPB 05/30/25 05:30 06/09/25 05:29 06/01/25 04:18 1 GM Lactated Ringer's (Lactated Ringers 1000ml) 1,000 ml BOLUS STAT IV 05/29/25 06:14 05/29/25 06:17 DC 05/29/25 07:00 1,000 ML Levothyroxine Sodium (SYNTHroid 75MCG TAB) 75 mcg SYN PO 05/30/25 06:30 06/29/25 06:29 06/01/25 05:24 75 MCG Lisinopril (Prinivil 20mg) 20 mg HS PO 05/30/25 21:00 06/29/25 20:59 05/30/25 21:28 20 MG Magnesium Sulfate 50 ml @ 0 mls/hr PROTOCOL PRN IV mgprotocol 05/29/25 08:00 06/28/25 07:59 Metronidazole/ Sodium Chloride (flaGYL) 500 mg Q8H IV 05/30/25 13:00 06/09/25 12:59 06/01/25 04:18 500 MG Octreotide Acetate 1250 mcg/ Sodium Chloride 250 ml @ 0 mls/hr PROTOCOL IV 05/29/25 09:30 05/30/25 12:31 DC 05/29/25 14:01 5 MLS/HR Ondansetron HCl (zoFRAN 4MG INJ) 4 mg Q6H PRN IVP NAUSEA/VOMITING 05/29/25 08:00 06/28/25 07:59 Pantoprazole Sodium (PROTonix 40MG TAB) 40 mg BID PO 05/30/25 21:00 06/29/25 20:59 06/01/25 08:23 40 MG Pantoprazole Sodium 80 mg/ Sodium Chloride 100 ml @ 10 mls/hr Q10H IV 05/29/25 07:30 05/30/25 12:35 DC 05/30/25 07:01 10 MLS/HR Potassium Chloride 100 ml @ 50 mls/hr AD PRN IV POTASSIUM PROTOCOL 05/29/25 08:00 05/29/25 08:02 DC Potassium Chloride 100 ml @ 100 mls/hr AD PRN IV POTASSIUM PROTOCOL 05/29/25 08:00 06/28/25 07:59 Potassium Chloride (K-Dur/Klor-Con 20meq) 20 meq AD PRN PO POTASSIUM PROTOCOL 05/29/25 08:00 06/28/25 07:59 06/01/25 10:39 20 MEQ Potassium Chloride (KCl 10% Elixir 20meq/15ml) 20 meq AD PRN PO POTASSIUM PROTOCOL 05/29/25 08:00 06/28/25 07:59 05/31/25 08:33 20 MEQ Psyllium Hydrophilic Mucilloid (Metamucil) 1 tbs DAILY PO 05/31/25 09:00 06/30/25 08:59 06/01/25 08:24 1 TBS Sodium Chloride 1,000 ml @ 100 mls/hr Q10H IV 05/29/25 08:30 06/01/25 11:54 DC 06/01/25 07:25 100 MLS/HR Assessment: [ Hematochezia Gi bleed Anemia Hypotension Hypokalemia ] Plan: [Case discussed with Dr. Galvez Advance diet as tolerated Avoid NSAIDS Trend hemoglobin q 6 hours and transfuse as needed to goal of HGB >7 Will continue to follow Thank you for allowing us to be part of this patient's care. ] PALMIRA MERCHANT NP Jun 01, 2025 13:04
--- NOTE | 2025-06-01 17:06 | PN ---
[facility] PROGRESS NOTE Date of Service: Jun 01, 2025 Time of Service: 16:55 SUBJECTIVE: 59-year-old female with past medical history of hypertension, hypothyroidism who presented to the hospital secondary to hematochezia and syncopal fall. The patient states she had a bowel movement 4 days ago and had blood in the stools and she decided to fast from that day and believed it would heal, she had not had a bowel movement after that again. she was having a bowel movement today when she noted that she had red color stool with her BM. During the episode she felt faint and dizzy . She was found on the ground by her in the bathroom. She tried to stand up after pooping and had syncopal fall and had loss of consciousness. She denied any headache, chest pain, shortness of breath, vomiting . She denied any hematemesis, melena. She has a had a colonoscopy done 5 days ago which is unremarkable for any findings other than internal hemorrhoids and endoscopy 4 days ago on which they found mild gastritis and biopsied the areas, from the previous admission last week which she was admitted for similar complaint. Additionally she also felt she was having some suprapubic tenderness with her bowel movement. She denied any dysuria, hematuria. 05/30/2025: The patient is awake, alert and oriented. She said that she tried walking and didn't have any syncopal episodes today. She complains of no chest pain or shortness of breadth. Patient had a flexible sigmoidoscopy scheduled today in am and it was performed by gastroenterology. She was transfused blood. Her stool occult blood came back positive. Chest Xray and NM GI showed no significant finding. Patient is concerned when can she can start eating proper meal. Two enemas done over night resulted in bloody stool. Initially she had low B.p, but it started trending up for which she was started on lisinopril 20mg. 05/31/2025: The patient is awake, alert and oriented. The patient didn't have a bowel movement in the morning but she was slowly having the urge to defecate. Eventually, the patient passed stool that was bloody. She complains of no chest pain or shortness of breath. He blood pressure today was 120/66, pulse is 57. Today her hemoglobin is 8.2, and no blood was transfused. Her potassium was 3.3, which was replaced according to protocol. 06/01/2025: The patient is awake, alert and oriented. The patient had a bowel movement yesterday that was dark black in color and since then she has not had any bowel movements. Patient says that her pain in abdomen is better and requ ested if she can change her diet from soft diet to advance diet, for which the order was placed. Her hemoglobin is 7.6 today, for which iron sucrose is ordered be transfused. Her potassium was 3.2, which was replaced according to protocol. She is continued on ceftriaxone and flagyl. REVIEW OF SYSTEMS CONSTITUTIONAL: Denies fevers, chills, or night sweats. No unintentional weight loss reported. NEUROLOGICAL: Denies headache, amaurosis fugax, motor weakness, sensory deficit, vertigo/spinning sensation, gait abnormalities, or tremors. ENT: No hearing loss, otalgia, otorrhea, rhinitis, rhinorrhea, hoarseness, or sore throat. CARDIOVASCULAR: Denies any exertional angina, dyspnea on exertion, orthopnea, paroxysmal nocturnal dyspnea, palpitations, life-threatening arrhythmias, claudication. PULMONARY: Denies any shortness of breath, cough, phlegm/sputum, hemoptysis, pleuritic chest pain. SLEEP: Denies morning headaches, daytime somnolence or napping. Denies difficulty falling asleep, staying asleep, waking from sleep. Denies knowledge of snoring. GASTROINTESTINAL: Positive for hematochezia. Denied any nausea, vomiting, melena, hematemesis. GENITOURINARY: Denies frequency, urgency, nocturia, hematuria or incontinence (Storage/Irritative symptoms.) Low urinary stream, straining to void, urinary intermittency or hesitancy, splitting of the voiding stream, terminal dribbling. ENDOCRINOLOGIC: Denies polyuria, polydipsia, polyphagia or heat/cold intolerances. HEMATOLOGIC: Denies thrombophilia/previous clots, or coagulopathy/bleeding disorders. PSYCHIATRIC: Denies any suicidal or homicidal ideation. Denies hallucinations. PHYSICAL EXAM GENERAL APPEARANCE: The patient is awake, alert, and oriented, in no acute cardiopulmonary distress. HEENT: Face is symmetric. Pupils are equal and reactive. Extraocular movements are intact. CHEST: Normal chest expansion. No Telemetry. LUNGS: Absence of any rales, rhonchi or any wheezing. CARDIOVASCULAR: Regular. S1 and S2 normal. No appreciable rubs, murmurs or gallops. : Deferred. No Sánchez. Abdomen: Patient complains of no abdominal pain EXTREMITIES: Non-edematous and not cyanotic. No clubbing. Good capillary refill. SKIN: No skin breakdown. Vital Signs (last 8hr) Date Time Temp Pulse Resp B/P (MAP) Pulse Ox O2 Delivery O2 Flow Rate FiO2 06/01/25 16:03 98.6 71 16 130/76 98 Room Air 06/01/25 12:00 98.1 71 16 132/74 98 Room Air 06/01/25 10:46 100 Room Air* 0 21 LABS: Laboratory: Test 06/01/25 04:06 05/30/25 21:10 Range/Units White Blood Count 6.6 4.8-10.8 K/uL Red Blood Count 2.51 L 4.00-5.50 MIL/uL Hemoglobin 7.6 L 12.0-16.0 g/dL Hematocrit 22.4 L 36-48 % Mean Corpuscular Volume 89.2 79-99 fL Mean Corpuscular Hemoglobin 30.3 27.0-33.0 pg Mean Corpuscular Hemoglobin Concent 33.9 32.0-36.0 g/dL Red Cell Distribution Width 15.8 H 11.0-15.5 % Platelet Count 182 130-400 K/uL Mean Platelet Volume 9.1 7.5-10.5 fL Immature Granulocyte % (Auto) 0.5 0-1 % Neutrophils (%) (Auto) 67.4 40.0-77.0 % Lymphocytes (%) (Auto) 23.2 21.0-51.0 % Monocytes (%) (Auto) 7.5 3.0-13.0 % Eosinophils (%) (Auto) 1.1 0.0-8.0 % Basophils (%) (Auto) 0.3 0.0-5.0 % Neutrophils # (Auto) 4.4 1.8-7.7 K/uL Lymphocytes # (Auto) 1.5 1.0-4.8 K/uL Monocytes # (Auto) 0.5 0.1-1.0 K/uL Eosinophils # (Auto) 0.07 0.00-0.70 K/uL Basophils # (Auto) 0.02 0.00-0.20 K/uL Absolute Immature Granulocyte (auto 0.03 0-1 K/uL Nucleated Red Blood Cells 0.0 0.0-0.19 % Sodium Level 143 136-145 mmol/L Potassium Level 3.2 L 3.5-5.1 mmol/L Chloride Level 109 101-111 mmol/L Carbon Dioxide Level 27 21-32 mmol/L Blood Urea Nitrogen 10 7-18 mg/dL Creatinine 0.4 L 0.5-1.0 mg/dL Glomerular Filtration Rate Calc 113 >90 mL/min Random Glucose 102 70-105 mg/dL Total Calcium 7.6 L 8.5-10.1 mg/dL Whole Blood Glucose 96 70-110 MG/DL Current Medications Medications (Trade) Dose Ordered Sig/Magui Route PRN Reason Start Time Stop Time Status Last Admin Dose Admin Ceftriaxone Sodium (ROCEphine 1G INJ) 1 gm Q24H IVPB 05/30/25 05:30 06/09/25 05:29 06/01/25 04:18 1 GM Lactated Ringer's (Lactated Ringers 1000ml) 1,000 ml BOLUS STAT IV 05/29/25 06:14 05/29/25 06:17 DC 05/29/25 07:00 1,000 ML Levothyroxine Sodium (SYNTHroid 75MCG TAB) 75 mcg SYN PO 05/30/25 06:30 06/29/25 06:29 06/01/25 05:24 75 MCG Lisinopril (Prinivil 20mg) 20 mg HS PO 05/30/25 21:00 06/29/25 20:59 05/30/25 21:28 20 MG Magnesium Sulfate 50 ml @ 0 mls/hr PROTOCOL PRN IV mgprotocol 05/29/25 08:00 06/28/25 07:59 Metronidazole/ Sodium Chloride (flaGYL) 500 mg Q8H IV 05/30/25 13:00 06/09/25 12:59 06/01/25 16:10 500 MG Octreotide Acetate 1250 mcg/ Sodium Chloride 250 ml @ 0 mls/hr PROTOCOL IV 05/29/25 09:30 05/30/25 12:31 DC 05/29/25 14:01 5 MLS/HR Ondansetron HCl (zoFRAN 4MG INJ) 4 mg Q6H PRN IVP NAUSEA/VOMITING 05/29/25 08:00 06/28/25 07:59 Pantoprazole Sodium (PROTonix 40MG TAB) 40 mg BID PO 05/30/25 21:00 06/29/25 20:59 06/01/25 08:23 40 MG Pantoprazole Sodium 80 mg/ Sodium Chloride 100 ml @ 10 mls/hr Q10H IV 05/29/25 07:30 05/30/25 12:35 DC 05/30/25 07:01 10 MLS/HR Potassium Chloride 100 ml @ 50 mls/hr AD PRN IV POTASSIUM PROTOCOL 05/29/25 08:00 05/29/25 08:02 DC Potassium Chloride 100 ml @ 100 mls/hr AD PRN IV POTASSIUM PROTOCOL 05/29/25 08:00 06/28/25 07:59 Potassium Chloride (K-Dur/Klor-Con 20meq) 20 meq AD PRN PO POTASSIUM PROTOCOL 05/29/25 08:00 06/28/25 07:59 06/01/25 10:39 20 MEQ Potassium Chloride (KCl 10% Elixir 20meq/15ml) 20 meq AD PRN PO POTASSIUM PROTOCOL 05/29/25 08:00 06/28/25 07:59 05/31/25 08:33 20 MEQ Psyllium Hydrophilic Mucilloid (Metamucil) 1 tbs DAILY PO 05/31/25 09:00 06/30/25 08:59 06/01/25 08:24 1 TBS Sodium Chloride 1,000 ml @ 100 mls/hr Q10H IV 05/29/25 08:30 06/01/25 11:54 DC 06/01/25 07:25 100 MLS/HR DIAGNOSTICS / RADIOLOGY: [ ] ASSESSMENT: Acute GI Bleed symptomatic iron deficiency Anemia History of diverticulosis Syncopal fall Hypertension Hypothyroidism PLAN: Acute GI Bleed, Syncopal Fall, Anemia Patient started on Pantoprazole Drip. Octreotide stopped Gastroenterology following the case Nuclear medicine GI blood loss Imaging has been ordered that showed no active bleed. Patient planned for flexible sigmoidoscopy by gastroenterology that showed no active bleeding. Avoid NSAID Will trend H&H Q 8 Zofran for nausea Maintain hemoglobin above 7g/dl, 2 unit transfused till now. Hemoglobin is 7.6 today. Given iron sucrose today. Stool occult blood is positive Started on ceftriaxone ( day 3) and flagyl (day 3) Hypokalemia Potassium is 3.2 today. Replace according to protocol Hypertension, hypothyroidism Continue the Levothyroxine Started on lisinopril 20 mg due to up trending blood pressure DVT prophylaxis with SCDs PHYSICIAN RESIDENT STATEMENT I was present with the resident during the History and Physical exam and I have reviewed the resident's note. This case was discussed with the resident and I agree with the history, physical exam and medical decision making as documented. Additions/exceptions/observations were directly added to the notes. Filiberto Sahu MD, SYED M MD Jun 01, 2025 17:06
[2025-06-01 18:43] LABS: NUCLEATED RED BLOOD CELLS 0.0 % (0.0-0.19); PLATELET COUNT (AUTO) 205 K/uL (130-400); RED BLOOD CELL COUNT(AUTO) 2.56 MIL/uL (4.00-5.50); RED CELL DISTRIBUTION WIDTH 16.1 % (11.0-15.5); WHITE BLOOD COUNT (AUTO) 6.4 K/uL (4.8-10.8)
[2025-06-01 18:52] LABS: IMMATURE GRANULOCYTE ABSOLUTE 0.05 K/uL (0-1)
[2025-06-02] VITALS (9 sets, daily range): BP systolic 128–143; BP diastolic 65–72; PULSE 66–75; RESP 16–20; TEMP 97.6–98.9; O2SAT 80–99
[2025-06-02 04:03] LABS: IMMATURE GRANULOCYTE ABSOLUTE 0.04 K/uL (0-1); NUCLEATED RED BLOOD CELLS 0.0 % (0.0-0.19); PLATELET COUNT (AUTO) 208 K/uL (130-400); RED BLOOD CELL COUNT(AUTO) 2.60 MIL/uL (4.00-5.50); RED CELL DISTRIBUTION WIDTH 16.0 % (11.0-15.5); WHITE BLOOD COUNT (AUTO) 7.6 K/uL (4.8-10.8)
[2025-06-02 04:11] LABS: CREATININE 0.5 mg/dL (0.5-1.0); GLOMERULAR FILTR. RATE CALC 107.0 mL/min (>90); GLUCOSE,RANDOM 105.0 mg/dL (70-105); SODIUM SERUM 144.0 mmol/L (136-145); UREA NITROGEN, BLOOD 7.0 mg/dL (7-18)
--- NOTE | 2025-06-02 14:31 | PN ---
[facility] PROGRESS NOTE Date of Service: Jun 02, 2025 Time of Service: 14:20 SUBJECTIVE: 59-year-old female with past medical history of hypertension, hypothyroidism who presented to the hospital secondary to hematochezia and syncopal fall. The patient states she had a bowel movement 4 days ago and had blood in the stools and she decided to fast from that day and believed it would heal, she had not had a bowel movement after that again. she was having a bowel movement today when she noted that she had red color stool with her BM. During the episode she felt faint and dizzy . She was found on the ground by her in the bathroom. She tried to stand up after pooping and had syncopal fall and had loss of consciousness. She denied any headache, chest pain, shortness of breath, vomiting . She denied any hematemesis, melena. She has a had a colonoscopy done 5 days ago which is unremarkable for any findings other than internal hemorrhoids and endoscopy 4 days ago on which they found mild gastritis and biopsied the areas, from the previous admission last week which she was admitted for similar complaint. Additionally she also felt she was having some suprapubic tenderness with her bowel movement. She denied any dysuria, hematuria. 05/30/2025: The patient is awake, alert and oriented. She said that she tried walking and didn't have any syncopal episodes today. She complains of no chest pain or shortness of breadth. Patient had a flexible sigmoidoscopy scheduled today in am and it was performed by gastroenterology. She was transfused blood. Her stool occult blood came back positive. Chest Xray and NM GI showed no significant finding. Patient is concerned when can she can start eating proper meal. Two enemas done over night resulted in bloody stool. Initially she had low B.p, but it started trending up for which she was started on lisinopril 20mg. 05/31/2025: The patient is awake, alert and oriented. The patient didn't have a bowel movement in the morning but she was slowly having the urge to defecate. Eventually, the patient passed stool that was bloody. She complains of no chest pain or shortness of breath. He blood pressure today was 120/66, pulse is 57. Today her hemoglobin is 8.2, and no blood was transfused. Her potassium was 3.3, which was replaced according to protocol. 06/01/2025: The patient is awake, alert and oriented. The patient had a bowel movement yesterday that was dark black in color and since then she has not had any bowel movements. Patient says that her pain in abdomen is better and requ ested if she can change her diet from soft diet to advance diet, for which the order was placed. Her hemoglobin is 7.6 today, for which iron sucrose is ordered be transfused. Her potassium was 3.2, which was replaced according to protocol. She is continued on ceftriaxone and flagyl. 06/02/2025: The patient is awake, alert and oriented. The patient finally had a bowel movement in the morning after 2 days which was black in color but with no active bleeding. The patient says that she feels better today. Her hemoglobin is 8.0. She was transfused 1 unit of iron sucrose yesterday and is planned for another iron sucrose transfusion today. Today her today her hemoglobin is 8.0. She is started on docusate, to encourage bowel movements. Yesterday she was put on advanced diet as tolerated but as per GI review she was continued on GI soft diet. She is continued on ceftriaxone and flagyl. REVIEW OF SYSTEMS CONSTITUTIONAL: Denies fevers, chills, or night sweats. No unintentional weight loss reported. NEUROLOGICAL: Denies headache, amaurosis fugax, motor weakness, sensory de ficit, vertigo/spinning sensation, gait abnormalities, or tremors. ENT: No hearing loss, otalgia, otorrhea, rhinitis, rhinorrhea, hoarseness, or sore throat. CARDIOVASCULAR: Denies any exertional angina, dyspnea on exertion, orthopnea, paroxysmal nocturnal dyspnea, palpitations, life-threatening arrhythmias, claudication. PULMONARY: Denies any shortness of breath, cough, phlegm/sputum, hemoptysis, pleuritic chest pain. SLEEP: Denies morning headaches, daytime somnolence or napping. Denies difficulty falling asleep, staying asleep, waking from sleep. Denies knowledge of snoring. GASTROINTESTINAL: Positive for hematochezia. Denied any nausea, vomiting, melena, hematemesis. GENITOURINARY: Denies frequency, urgency, nocturia, hematuria or incontinence ( Storage/Irritative symptoms.) Low urinary stream, straining to void, urinary intermittency or hesitancy, splitting of the voiding stream, terminal dribbling. ENDOCRINOLOGIC: Denies polyuria, polydipsia, polyphagia or heat/cold intolerances. HEMATOLOGIC: Denies thrombophilia/previous clots, or coagulopathy/bleeding disorders. PSYCHIATRIC: Denies any suicidal or homicidal ideation. Denies hallucinations. PHYSICAL EXAM GENERAL APPEARANCE: The patient is awake, alert, and oriented, in no acute card iopulmonary distress. HEENT: Face is symmetric. Pupils are equal and reactive. Extraocular movements are intact. CHEST: Normal chest expansion. No Telemetry. LUNGS: Absence of any rales, rhonchi or any wheezing. CARDIOVASCULAR: Regular. S1 and S2 normal. No appreciable rubs, murmurs or gallops. : Deferred. No Sánchez. Abdomen: Patient complains of no abdominal pain EXTREMITIES: Non-edematous and not cyanotic. No clubbing. Good capillary refill. SKIN: No skin breakdown. Vital Signs (last 8hr) Date Time Temp Pulse Resp B/P (MAP) Pulse Ox O2 Delivery O2 Flow Rate FiO2 06/02/25 12:00 97.5 75 20 140/65 98 Room Air 06/02/25 09:30 99 Room Air* 0 21 06/02/25 08:00 98.6 72 20 142/68 98 Room Air LABS: Laboratory: Test 06/02/25 03:46 Range/Units White Blood Count 7.6 4.8-10.8 K/uL Red Blood Count 2.60 L 4.00-5.50 MIL/uL Hemoglobin 8.0 L 12.0-16.0 g/dL Hematocrit 23.0 L 36-48 % Mean Corpuscular Volume 88.5 79-99 fL Mean Corpuscular Hemoglobin 30.8 27.0-33.0 pg Mean Corpuscular Hemoglobin Concent 34.8 32.0-36.0 g/dL Red Cell Distribution Width 16.0 H 11.0-15.5 % Platelet Count 208 130-400 K/uL Mean Platelet Volume 8.9 7.5-10.5 fL Immature Granulocyte % (Auto) 0.5 0-1 % Neutrophils (%) (Auto) 74.0 40.0-77.0 % Lymphocytes (%) (Auto) 17.5 L 21.0-51.0 % Monocytes (%) (Auto) 6.9 3.0-13.0 % Eosinophils (%) (Auto) 0.8 0.0-8.0 % Basophils (%) (Auto) 0.3 0.0-5.0 % Neutrophils # (Auto) 5.6 1.8-7.7 K/uL Lymphocytes # (Auto) 1.3 1.0-4.8 K/uL Monocytes # (Auto) 0.5 0.1-1.0 K/uL Eosinophils # (Auto) 0.06 0.00-0.70 K/uL Basophils # (Auto) 0.02 0.00-0.20 K/uL Absolute Immature Granulocyte (auto 0.04 0-1 K/uL Nucleated Red Blood Cells 0.0 0.0-0.19 % Sodium Level 144 136-145 mmol/L Potassium Level 3.9 3.5-5.1 mmol/L Chloride Level 108 101-111 mmol/L Carbon Dioxide Level 30 21-32 mmol/L Blood Urea Nitrogen 7 7-18 mg/dL Creatinine 0.5 0.5-1.0 mg/dL Glomerular Filtration Rate Calc 107 >90 mL/min Random Glucose 105 70-105 mg/dL Total Calcium 8.2 L 8.5-10.1 mg/dL Current Medications Medications (Trade) Dose Ordered Sig/Magui Route PRN Reason Start Time Stop Time Status Last Admin Dose Admin Ceftriaxone Sodium (ROCEphine 1G INJ) 1 gm Q24H IVPB 05/30/25 05:30 06/09/25 05:29 06/02/25 05:40 1 GM Lactated Ringer's (Lactated Ringers 1000ml) 1,000 ml BOLUS STAT IV 05/29/25 06:14 05/29/25 06:17 DC 05/29/25 07:00 1,000 ML Levothyroxine Sodium (SYNTHroid 75MCG TAB) 75 mcg SYN PO 05/30/25 06:30 06/29/25 06:29 06/02/25 05:40 75 MCG Lisinopril (Prinivil 20mg) 20 mg HS PO 05/30/25 21:00 06/29/25 20:59 06/01/25 20:15 20 MG Magnesium Sulfate 50 ml @ 0 mls/hr PROTOCOL PRN IV mgprotocol 05/29/25 08:00 06/28/25 07:59 Metronidazole/ Sodium Chloride (flaGYL) 500 mg Q8H IV 05/30/25 13:00 06/01/25 20:11 DC 06/01/25 16:10 500 MG Metronidazole/ Sodium Chloride (flaGYL) 500 mg Q8H IV 06/02/25 00:01 06/09/25 00:00 06/02/25 08:37 500 MG Octreotide Acetate 1250 mcg/ Sodium Chloride 250 ml @ 0 mls/hr PROTOCOL IV 05/29/25 09:30 05/30/25 12:31 DC 05/29/25 14:01 5 MLS/HR Ondansetron HCl (zoFRAN 4MG INJ) 4 mg Q6H PRN IVP NAUSEA/VOMITING 05/29/25 08:00 06/28/25 07:59 Pantoprazole Sodium (PROTonix 40MG TAB) 40 mg BID PO 05/30/25 21:00 06/29/25 20:59 06/02/25 08:37 40 MG Pantoprazole Sodium 80 mg/ Sodium Chloride 100 ml @ 10 mls/hr Q10H IV 05/29/25 07:30 05/30/25 12:35 DC 05/30/25 07:01 10 MLS/HR Potassium Chloride 100 ml @ 50 mls/hr AD PRN IV POTASSIUM PROTOCOL 05/29/25 08:00 05/29/25 08:02 DC Potassium Chloride 100 ml @ 100 mls/hr AD PRN IV POTASSIUM PROTOCOL 05/29/25 08:00 06/28/25 07:59 Potassium Chloride (K-Dur/Klor-Con 20meq) 20 meq AD PRN PO POTASSIUM PROTOCOL 05/29/25 08:00 06/28/25 07:59 06/01/25 10:39 20 MEQ Potassium Chloride (KCl 10% Elixir 20meq/15ml) 20 meq AD PRN PO POTASSIUM PROTOCOL 05/29/25 08:00 06/28/25 07:59 05/31/25 08:33 20 MEQ Psyllium Hydrophilic Mucilloid (Metamucil) 1 tbs DAILY PO 05/31/25 09:00 06/30/25 08:59 06/02/25 08:37 1 TBS Sodium Chloride 1,000 ml @ 100 mls/hr Q10H IV 05/29/25 08:30 06/01/25 11:54 DC 06/01/25 07:25 100 MLS/HR DIAGNOSTICS / RADIOLOGY: [ ] ASSESSMENT: Acute GI Bleed symptomatic iron deficiency Anemia History of diverticulosis Syncopal fall Hypertension Hypothyroidism PLAN: Acute GI Bleed, Syncopal Fall, Anemia Patient started on Pantoprazole Drip. Octreotide stopped Gastroenterology following the case Nuclear medicine GI blood loss Imaging has been ordered that showed no active bl eed. Patient planned for flexible sigmoidoscopy by gastroenterology that showed no active bleeding. Avoid NSAID Maintain hemoglobin above 7g/dl, 2 unit transfused till now. Hemoglobin is 8.0 today. Given iron sucrose today. Stool occult blood is positive Started on ceftriaxone ( day 4) and flagyl (day 4) Hypokalemia Potassium is 3.9 today. Replace according to protocol Hypertension, hypothyroidism Continue the Levothyroxine Started on lisinopril 20 mg DVT prophylaxis with SCDs PHYSICIAN RESIDENT STATEMENT I was present with the resident during the History and Physical exam and I have reviewed the resident's note. This case was discussed with the resident and I agree with the history, physical exam and medical decision making as documented. Additions/exceptions/observations were directly added to the notes. Filiberto Sahu MD, SYED M MD Jun 02, 2025 14:31
--- NOTE | 2025-06-02 16:16 | PN ---
GASTROENTEROLOGY PROGRESS NOTE Date of Visit: Jun 02, 2025 Time of Visit: 16:15 Events / Notes: [ No acute events overnight. Patient's vital signs have remained stable. Hemoglobin has been holding at 8.2, platelets 184. WBC of 7.2. Chemistry significant for potassium of 3.3, creatinine 0.4, calcium 7.9. Patient has tolerated clear fluids. Per nurses report patient has had 1 dark tarry stool.VSS. Patient resting in SF in no acute distress with her children at bedside. She reports having dark very soft stool. POC discussed and informed of need to continue trending HGB. Recommendations to avoid foods that can trigger irritation such as fried foods, spicy foods, carbonated and caffeinated drinks, acidic foods (citrus fruids), chocolate, and foods with tomatoes and tomato sauces. She stated she cooks a lot with tomato based buillon. . 06/01/25:Patient's hemoglobin has trended down to 7.6 today. Platelets are 182. Potassium 3.2, creatinine 0.4, calcium 7.6. Her vital signs are stable. She continues receiving iron infusion. On exam she is resting in no acute distress. Respirations are unlabored. She states she has not had a bowel movement today. Informed we will continue to monitor hemoglobin and transfuse as needed. She began taking fiber today and encouraged daily supplemental fiber intake after discharge. She verbalized understanding and agreement. 06/02/25: Patient's hemoglobin increased to 8.0. Potassium and creatinine have been corrected. VSS. Patient reports feeling well and states she had a formed BM that was less dark than previous ones. Reinforced recommendations in avoidance of those foods that trigger irritation and inflammation given her hx of gastritis and this bleed. Recommend she continue with fiber supplementation. Emphasized importance she f/u at office once discharged. She agreed. .] Review of Systems: CONSTITUTIONAL: No malaise or change in sensation of wellbeing. ENMT: No rhinorrhea, otorrhea, sinus pain, ear ache. CARDIOVASCULAR: No angina, palpitations, orthopnea or paroxysmal dyspnea. RESPIRATORY: No SOB. GASTROINTESTINAL: No abdominal pain, nausea, vomiting, diarrhea, hematemesis, melena or change in the patient's habitual bowel movements consistency/number. GENITOURINARY: No dysuria, hematuria or change in bladder continence. MUSCULOSKELETAL: No new muscle pain or decrease in muscular strength. No new joint swelling, redness or tenderness. SKIN: No new rash. Physical Exam: GEN: Awake, alert, oriented in person, time and place, and in no acute distress. HEENT: Oral pharyngeal mucosa is pink, moist and within normal limits. CHEST: Respirations unlabored. . CARDIAC: Regular rate ABD: Soft, non-tender and not distended. EXT: No cyanosis or clubbing. No edema. SKIN: Intact. No rashes. JOINTS: No evidence of synovitis or acute arthritis. NEURO: Alert and oriented to name, place and person. Normal speech. Strength is normal. Vital Signs (last 8hr) Date Time Temp Pulse Resp B/P (MAP) Pulse Ox O2 Delivery O2 Flow Rate FiO2 06/02/25 12:00 97.5 75 20 140/65 98 Room Air 06/02/25 09:30 99 Room Air* 0 21 Laboratory: [ ] Laboratory: Test 06/02/25 03:46 Range/Units White Blood Count 7.6 4.8-10.8 K/uL Red Blood Count 2.60 L 4.00-5.50 MIL/uL Hemoglobin 8.0 L 12.0-16.0 g/dL Hematocrit 23.0 L 36-48 % Mean Corpuscular Volume 88.5 79-99 fL Mean Corpuscular Hemoglobin 30.8 27.0-33.0 pg Mean Corpuscular Hemoglobin Concent 34.8 32.0-36.0 g/dL Red Cell Distribution Width 16.0 H 11.0-15.5 % Platelet Count 208 130-400 K/uL Mean Platelet Volume 8.9 7.5-10.5 fL Immature Granulocyte % (Auto) 0.5 0-1 % Neutrophils (%) (Auto) 74.0 40.0-77.0 % Lymphocytes (%) (Auto) 17.5 L 21.0-51.0 % Monocytes (%) (Auto) 6.9 3.0-13.0 % Eosinophils (%) (Auto) 0.8 0.0-8.0 % Basophils (%) (Auto) 0.3 0.0-5.0 % Neutrophils # (Auto) 5.6 1.8-7.7 K/uL Lymphocytes # (Auto) 1.3 1.0-4.8 K/uL Monocytes # (Auto) 0.5 0.1-1.0 K/uL Eosinophils # (Auto) 0.06 0.00-0.70 K/uL Basophils # (Auto) 0.02 0.00-0.20 K/uL Absolute Immature Granulocyte (auto 0.04 0-1 K/uL Nucleated Red Blood Cells 0.0 0.0-0.19 % Sodium Level 144 136-145 mmol/L Potassium Level 3.9 3.5-5.1 mmol/L Chloride Level 108 101-111 mmol/L Carbon Dioxide Level 30 21-32 mmol/L Blood Urea Nitrogen 7 7-18 mg/dL Creatinine 0.5 0.5-1.0 mg/dL Glomerular Filtration Rate Calc 107 >90 mL/min Random Glucose 105 70-105 mg/dL Total Calcium 8.2 L 8.5-10.1 mg/dL Current Medications Medications (Trade) Dose Ordered Sig/Magui Route PRN Reason Start Time Stop Time Status Last Admin Dose Admin Ceftriaxone Sodium (ROCEphine 1G INJ) 1 gm Q24H IVPB 05/30/25 05:30 06/09/25 05:29 06/02/25 05:40 1 GM Lactated Ringer's (Lactated Ringers 1000ml) 1,000 ml BOLUS STAT IV 05/29/25 06:14 05/29/25 06:17 DC 05/29/25 07:00 1,000 ML Levothyroxine Sodium (SYNTHroid 75MCG TAB) 75 mcg SYN PO 05/30/25 06:30 06/29/25 06:29 06/02/25 05:40 75 MCG Lisinopril (Prinivil 20mg) 20 mg HS PO 05/30/25 21:00 06/29/25 20:59 06/01/25 20:15 20 MG Magnesium Sulfate 50 ml @ 0 mls/hr PROTOCOL PRN IV mgprotocol 05/29/25 08:00 06/28/25 07:59 Metronidazole/ Sodium Chloride (flaGYL) 500 mg Q8H IV 05/30/25 13:00 06/01/25 20:11 DC 06/01/25 16:10 500 MG Metronidazole/ Sodium Chloride (flaGYL) 500 mg Q8H IV 06/02/25 00:01 06/09/25 00:00 06/02/25 15:43 500 MG Octreotide Acetate 1250 mcg/ Sodium Chloride 250 ml @ 0 mls/hr PROTOCOL IV 05/29/25 09:30 05/30/25 12:31 DC 05/29/25 14:01 5 MLS/HR Ondansetron HCl (zoFRAN 4MG INJ) 4 mg Q6H PRN IVP NAUSEA/VOMITING 05/29/25 08:00 06/28/25 07:59 Pantoprazole Sodium (PROTonix 40MG TAB) 40 mg BID PO 05/30/25 21:00 06/29/25 20:59 06/02/25 08:37 40 MG Pantoprazole Sodium 80 mg/ Sodium Chloride 100 ml @ 10 mls/hr Q10H IV 05/29/25 07:30 05/30/25 12:35 DC 05/30/25 07:01 10 MLS/HR Potassium Chloride 100 ml @ 50 mls/hr AD PRN IV POTASSIUM PROTOCOL 05/29/25 08:00 05/29/25 08:02 DC Potassium Chloride 100 ml @ 100 mls/hr AD PRN IV POTASSIUM PROTOCOL 05/29/25 08:00 06/28/25 07:59 Potassium Chloride (K-Dur/Klor-Con 20meq) 20 meq AD PRN PO POTASSIUM PROTOCOL 05/29/25 08:00 06/28/25 07:59 06/01/25 10:39 20 MEQ Potassium Chloride (KCl 10% Elixir 20meq/15ml) 20 meq AD PRN PO POTASSIUM PROTOCOL 05/29/25 08:00 06/28/25 07:59 05/31/25 08:33 20 MEQ Psyllium Hydrophilic Mucilloid (Metamucil) 1 tbs DAILY PO 05/31/25 09:00 06/30/25 08:59 06/02/25 08:37 1 TBS Sodium Chloride 1,000 ml @ 100 mls/hr Q10H IV 05/29/25 08:30 06/01/25 11:54 DC 06/01/25 07:25 100 MLS/HR Diagnostics / Radiology: [COPY/PASTE HERE IF NO REPORTS PLEASE DELETE SECTION] Assessment: [ Hematochezia Gi bleed Anemia Hypotension Hypokalemia ] Plan: [Case discussed with Regular diet with avoidance of trigger foods (spicy, greasy, carbonated beverages, caffeine, chocolate, and foods with tomato and tomato sauces) Continue with fiber daily Avoid NSAIDS Trend hemoglobin daily We will sign off but will be available if needed. Please call with questions, concerns,and change in clinical status. Patient is to f/u at [facility] in 1-2 weeks for further evaluation Thank you for allowing us to be part of this patient's care. ] PALMIRA MERCHANT NP Jun 02, 2025 16:16
[2025-06-03 03:48] VITALS: BP 142/71; PULSE 72; RESP 18; TEMP 98.4
[2025-06-03 06:06] LABS: IMMATURE GRANULOCYTE ABSOLUTE 0.04 K/uL (0-1); NUCLEATED RED BLOOD CELLS 0.0 % (0.0-0.19); PLATELET COUNT (AUTO) 218 K/uL (130-400); RED BLOOD CELL COUNT(AUTO) 2.76 MIL/uL (4.00-5.50); RED CELL DISTRIBUTION WIDTH 16.6 % (11.0-15.5); WHITE BLOOD COUNT (AUTO) 7.6 K/uL (4.8-10.8)
[2025-06-03 06:19] LABS: CREATININE 0.5 mg/dL (0.5-1.0); GLOMERULAR FILTR. RATE CALC 107.0 mL/min (>90); GLUCOSE,RANDOM 102.0 mg/dL (70-105); SODIUM SERUM 146.0 mmol/L (136-145); UREA NITROGEN, BLOOD 8.0 mg/dL (7-18)
[2025-06-03 08:00] VITALS: BP 125/68; PULSE 68; RESP 16; TEMP 98.5; O2SAT 95
[2025-06-03 12:00] VITALS: BP 129/76; PULSE 73; RESP 17; TEMP 98.6
[2025-06-03] MEDS ORDERED: FERR-72 PO (14:40)
--- NOTE | 2025-06-03 15:14 | DS ---
Discharge Summary Hospital Course Summary: Presentation: The patient, with a past medical history of hypertension and hyperthyroidism, presented to the emergency department with hematochezia and a syncopal fall. On arrival she was hemodynamically stable. Laboratory evaluation revealed a WBC count of 10.1, hemoglobin count of 6.4, platelet count of 251, sodium of 141, potassium of 3, BUN of 21, creatinine of 0.6 and a negative troponin. She was admitted on 05/29/2025 with a diagnosis of acute gastrointestinal bleeding and a syncopal episode Hospital course: On 05/29/2025, the patient underwent x-ray of the chest, x-ray of pelvis, and a GI bleeding scan which were all read as no acute abnormality as per the radiologist. Gastroenterology was consulted for the patient to evaluate the gastrointestinal bleed. On 05/30/2025, the patient underwent flexible sigmoidoscopy, which was negative for active bleeding. Patient's fecal occult blood testing was positive. Her urinalysis was positive for urinary tract infection and she was given ceftriaxone and metronidazole for 4 days intr avenously. Patient continued to have low hemoglobin and an iron panel was ordered which revealed iron-deficiency anemia. Patient was hence transfused with 2 units of packed red blood cells,3 doses of IV Venofer throughout her stay in the hospital. By 06/03, the patient's stools have normalized with no further hematochezia or melena. Patient remained clinically stable, with improved hemoglobin levels and resolution of overt GI bleeding. She is being discharged in stable condition with outpatient follow up for further GI evaluation and surveillance for recurrent bleeding. She will complete her antibiotic course for urinary tract infection and maintain blood pressure control for her hypertension. Close monitoring of hemoglobin and electrolytes will be required in the outpatient setting, with instructions to return promptly if any recurrent bleeding or syncope occurs. Control Room Helper(s): CONSULTATION REPORT Name: QUIANA JOHN Acct: [id number] MR: [id number] : 1965 Admit Date: 05/29/25 PALMIRA MERCHANT NP [place] [id number] [place] [id number] GASTROENTEROLOGY CONSULTATION NOTE Date of Consultation: May 29, 2025 Time of Consultation: 09:44 History of Present Illness: [This is a 59-year-old female patient with past medical history of hypertension, hypothyroidism, who presented to the emergency room with complaints of rectal bleeding and hypotension. Patient had been admitted on 05/24 with the same complaint and had undergone an EGD and colonoscopy on 05/24/25, which revealed: Skin tags on perianal exam, terminal ileum appeared normal, rectum, descending colon, transverse colon, ascending colon, cecum, Appendiceal orifice and ileocecal valve appeared normal, nonbleeding internal hemorrhoids were found, a few large mouth diverticula were found in the sigmoid colon with no evidence of diverticular bleeding. EGD significant for gastritis, with normal duodenal bulb and 2nd portion of duodenum, normal cricopharyngeus proximal and distal esophagus and regular Z-line at 36 cm. CBC with WBC of 10.1, hemoglobin 6.4, platelets 251. Chemistry significant for potassium of 3.0, glucose of 68, shanda cium 8.0, total bilirubin 0.5, direct bili 0.1, AST and ALT are normal, alkaline phosphatase 46, CRP 3.10, albumin 3.2. Iron low at 40, TIBC 245, % saturation at 16.3, ferritin at 185. TSH 1.41. PT 11.8, INR 1.13. Stool positive for fecal occult blood. On exam, patient is a,a,& o x 3 in no acute distress. VSS. Her respirations are unlabored with BBS clear. Abdomen is soft, nondistended, but tender to LLQ. She reports she had bleeding with BM on 05/25/25 and then again this morning. She states she had low bmp and fell in shower on her buttocks. Patient states she has been on clear fluids with last solid meal on 05/25/25 at 1830. POC discussed and need to reevaluate with Flex-sig in am. Patient verbalized understanding and agreement. GI bleed scan findings: No evidence of gastrointestinal hemorrhage during the course of examination acquisition. Review of Systems: CONSTITUTIONAL: No malaise or change in sensation of wellbeing. ENMT: No rhinorrhea, otorrhea, sinus pain, ear ache. CARDIOVASCULAR: No angina, palpitations, orthopnea or paroxysmal dyspnea. RESPIRATORY: No SOB. GASTROINTESTINAL: No abdominal pain, nausea, vomiting, diarrhea, hematemesis, melena or change in the patient's habitual bowel movements consistency/number. GENITOURINARY: No dysuria, hematuria or change in bladder continence. MUSCULOSKELETAL: No new muscle pain or decrease in muscular strength. No new joint swelling, redness or tenderness. SKIN: No new rash. Past Medical History: [Hypertension, hypothyroidism PAST SURGICAL HISTORY: Thyroidectomy PAST SOCIAL HISTORY: Denies smoking, alcohol, drug use Coded Allergies: No Known Drug Allergies (Unverified Allergy, Unknown, 07/04/16) Physical Exam: GEN: Awake, alert, oriented in person, time and place, and in no acute distress. HEENT: No sinus tenderness. Tympanic membranes were not examined. No rhinorrhea. Oral pharyngeal mucosa is pink, moist and within normal limits. CHEST: Inspection, palpation of the chest were unremarkable. Lung auscultation revealed normal breath sounds bilaterally. CARDIAC: PMI is within normal limits. Heart sounds are regular. ABD: Soft, non-tender and not distended. No peritoneal signs on palpation. No organomegaly. Normal bowel sounds. EXT: No cyanosis or clubbing. No edema. SKIN: Intact. No rashes. JOINTS: No evidence of synovitis or acute arthritis. NEURO: Alert and oriented to name, place and person. Cranial nerve examination is unremarkable. No focal motor deficits. Normal speech. Strength is normal. Vital Sign (Last 24 Hours) 05/29/25 07:36 Temp 97.0 Pulse 69 Resp 16 B/P (MAP) 129/61 Pulse Ox 97 O2 Delivery Room Air* O2 Flow Rate 0 FiO2 21 Laboratory: [ ] Laboratory: Test 05/29/25 06:39 Range/Units White Blood Count 10.1 4.8-10.8 K/uL Red Blood Count 2.09 L 4.00-5.50 MIL/uL Hemoglobin 6.4 *L 12.0-16.0 g/dL Hematocrit 19.0 *L 36-48 % Mean Corpuscular Volume 90.9 79-99 fL Mean Corpuscular Hemoglobin 30.6 27.0-33.0 pg Mean Corpuscular Hemoglobin Concent 33.7 32.0-36.0 g/dL Red Cell Distribution Width 13.6 11.0-15.5 % Platelet Count 251 130-400 K/uL Mean Platelet Volume 9.5 7.5-10.5 fL Immature Granulocyte % (Auto) 0.6 0-1 % Neutrophils (%) (Auto) 77.0 40.0-77.0 % Lymphocytes (%) (Auto) 17.2 L 21.0-51.0 % Monocytes (%) (Auto) 4.7 3.0-13.0 % Eosinophils (%) (Auto) 0.1 0.0-8.0 % Basophils (%) (Auto) 0.4 0.0-5.0 % Neutrophils # (Auto) 7.8 H 1.8-7.7 K/uL Lymphocytes # (Auto) 1.7 1.0-4.8 K/uL Monocytes # (Auto) 0.5 0.1-1.0 K/uL Eosinophils # (Auto) 0.01 0.00-0.70 K/uL Basophils # (Auto) 0.04 0.00-0.20 K/uL Absolute Immature Granulocyte (auto 0.06 0-1 K/uL Nucleated Red Blood Cells 0.0 0.0-0.19 % Reticulocyte Count (auto) 5.88133 H 0.42-2.23 % Immature Reticulocyte Fraction 29.80 H 0.18-0.48 % Prothrombin Time 11.8 H 9.6-11.6 SEC Prothromb Time International Ratio 1.13 0.85-1.15 Activated Partial Thromboplast Time 21.8 L 26.3-35.5 SEC Stool Occult Blood POSITIVE H NEGATIVE Sodium Level 141 136-145 mmol/L Potassium Level 3.0 *L 3.5-5.1 mmol/L Chloride Level 104 101-111 mmol/L Carbon Dioxide Level 21 21-32 mmol/L Blood Urea Nitrogen 14 7-18 mg/dL Creatinine 0.6 0.5-1.0 mg/dL Glomerular Filtration Rate Calc 103 >90 mL/min Random Glucose 68 L 70-105 mg/dL Total Calcium 8.0 L 8.5-10.1 mg/dL Phosphorus Level 3.7 2.5-4.9 mg/dL Magnesium Level 1.90 1.80-2.40 mg/dL Iron Level 40 L 50-170 mcg/dL Total Iron Binding Capacity 245 L 250-450 mcg/dL Percent Iron Saturation 16.3 L 22-44 % Ferritin 185 H 15-150 ng/mL Total Bilirubin 0.5 0.2-1.0 mg/dL Direct Bilirubin 0.1 0.0-0.3 mg/dL Aspartate Amino Transf (AST/SGOT) 29 10-37 U/L Alanine Aminotransferase (ALT/SGPT) 31 12-78 U/L Alkaline Phosphatase 46 L 50-136 U/L C-Reactive Protein, Quantitative 3.10 H 0.5-3.0 mg/L Total Protein 5.9 L 6.0-8.3 g/dL Albumin 3.2 L 3.5-5.0 g/dL Vitamin B12 Level 483 193-986 pg/mL Procalcitonin < 0.05 L 0.05-0.5 ng/mL Thyroid Stimulating Hormone (TSH) 1.41 # 0.36-3.74 uIU/mL Current Medications Medications (Trade) Dose Ordered Sig/Magui Route PRN Reason Start Time Stop Time Status Last Admin Dose Admin Lactated Ringer's (Lactated Ringers 1000ml) 1,000 ml BOLUS STAT IV 05/29/25 06:14 05/29/25 06:17 DC 05/29/25 07:00 1,000 ML Magnesium Sulfate 50 ml @ 0 mls/hr PROTOCOL PRN IV mgprotocol 05/29/25 08:00 06/28/25 07:59 Octreotide Acetate 1250 mcg/ Sodium Chloride 250 ml @ 0 mls/hr PROTOCOL IV 05/29/25 09:30 06/28/25 09:29 Ondansetron HCl (zoFRAN 4MG INJ) 4 mg Q6H PRN IVP NAUSEA/VOMITING 05/29/25 08:00 06/28/25 07:59 Pantoprazole Sodium 80 mg/ Sodium Chloride 100 ml @ 10 mls/hr Q10H IV 05/29/25 07:30 06/28/25 07:29 05/29/25 08:05 10 MLS/HR Potassium Chloride 100 ml @ 50 mls/hr AD PRN IV POTASSIUM PROTOCOL 05/29/25 08:00 05/29/25 08:02 DC Potassium Chloride 100 ml @ 100 mls/hr AD PRN IV POTASSIUM PROTOCOL 05/29/25 08:00 06/28/25 07:59 Potassium Chloride (K-Dur/Klor-Con 20meq) 20 meq AD PRN PO POTASSIUM PROTOCOL 05/29/25 08:00 06/28/25 07:59 Potassium Chloride (KCl 10% Elixir 20meq/15ml) 20 meq AD PRN PO POTASSIUM PROTOCOL 05/29/25 08:00 06/28/25 07:59 Sodium Chloride 1,000 ml @ 100 mls/hr Q10H IV 05/29/25 08:30 06/28/25 08:29 Diagnostics / Radiology: [COPY/PASTE HERE IF NO REPORTS PLEASE DELETE SECTION] Assessment: [ Hematochezia Gi bleed Anemia Hypotension Hypokalemia ] Plan: [Case discussed with Dr. Jones CT GI bleeding scan reviewed. Patient can have clear fluids after CT scan and then NPO after midnight Trend hemoglobin q 6 hours and transfuse as needed to goal of HGB >7 Tap water enemas tonight x 2 and then repeat 2 tap water enemas in am at 0500 Plan for Flexible sigmoidoscopy in AM. Thank you for allowing us to be part of this patient's care. ] PALMIRA MERCHANT NP May 29, 2025 09:46 Electronically Signed by: PALMIRA MERCHANT NP05/29/25 2217 Electronically Co-Signed by: Procedure(s): [place] [address] [address] IMAGING REPORT Signed PATIENT: QUIANA JOHN MR#: [id number] : 1965 SEX: F AGE: 59 LOCATION: [facility] ORDER 3 STATUS: ADM IN REPORT#: [id number] SERVICE [id number] REASON: sob ORDERING PHYSICIAN: LALO BLANK MD PROCEDURE: CXR1VW - CHEST 1VW EXAM: CR Chest, 1 View. CLINICAL HISTORY: Shortness of breath. COMPARISON: None provided. FINDINGS: Support lines and tubes are in the correct positions. There is no mass, infiltrate, or acute pulmonary abnormality. PLEURAL SPACES: No pleural effusion or pneumothorax. MEDIASTINUM: The cardiomediastinal silhouette is within normal limits. BONES: No acute osseous abnormality. IMPRESSION: No acute cardiopulmonary pathology is evident. /[place] DICTATED BY: VICKIE SALAZAR MD DATE: 05/30/25734 ELECTRONICALLY SIGNED BY: VICKIE SALAZAR MD DATE: 05/30/25 0735 [facility] [address] [place], [place] [address] IMAGING REPORT Signed PATIENT: QUIANA JOHN MR#: [id number] : 1965 SEX: F AGE: 59 LOCATION: [facility] ORDER 1019 STATUS: ADM IN REPORT#: [id number] SERVICE 1017 REASON: fall , low back pain ORDERING PHYSICIAN: LALO BLANK MD PROCEDURE: PELVIS - PELVIS 1-2VWS EXAM: CR Pelvis, single view. CLINICAL HISTORY: Fall, low back pain. COMPARISON: Prior CT abdomen dated May 23, 2025 FINDINGS: No acute fracture or aggressive appearing osseous lesion. Mild degenerative changes in the bilateral medial hip joint. Mild degenerative changes in the bilateral sacroiliac joint. The soft tissues are unremarkable. IMPRESSION: 1. No acute osseous abnormality. 2. Mild degenerative changes in the bilateral medial hip joint space. /[place] DICTATED BY: GIBSON RODRIGUEZ Jr., MD DATE: 05/29/252320 ELECTRONICALLY SIGNED BY: GIBSON RODRIGUEZ Jr., MD DATE: 05/29/252320 [facility] [address] [place], [place] [id number] IMAGING REPORT Signed PATIENT: QUIANA JOHN MR#: [id number] : 1965 SEX: F AGE: 59 LOCATION: [facility] ORDER 1255 STATUS: ADM IN REPORT#: [id number] SERVICE 125 REASON: Melena/ gi bleed, anemia ORDERING PHYSICIAN: PALMIRA MERCHANT NP PROCEDURE: GIBLEED - NM GI BLOOD LOSS IMAG Examination NM radiolabeled red blood cell study History Gastrointestinal bleeding Technique After IV administration of Tc-99m labeled red autologous blood cells, anterior projection images of the abdomen and pelvis were obtained dynamically for one hour. Findings Following administration of radiolabeled red blood cells, there is normal activity seen in cardiovascular and genitourinary structures, the liver and spleen. There is no evidence for extravasation of radiolabeled red blood cells during the examination. IMPRESSION: No evidence of gastrointestinal hemorrhage during the course of examination acquisition. /[place] DICTATED BY: GIBSON RODRIGUEZ Jr., MD DATE: 05/29/251652 ELECTRONICALLY SIGNED BY: GIBSON RODRIGUEZ Jr., MD DATE: 05/29/251652 Assessment/Plan: ASSESSMENT: Acute GI Bleed symptomatic iron deficiency Anemia History of diverticulosis Syncopal fall Hypertension Hypothyroidism Discharge Instructions: Continue regular diet with avoidance of trigger foods like spicy, greasy, carbonated beverages, caffeine, chocolate and foods with tomato and tomato sauces. Continue with fiber diet daily. Avoid NSAIDs like Ibuprofen,Naproxen, aspirin. Seek immediate medical care, call 911 or go to the nearest emergency room if black/tarry stools or blood in stool/urine, severe abdominal pain Home Medications: Active Scripts Pantoprazole Sodium (Pantoprazole Sodium) 40 Mg Tablet.dr, 1 TAB PO DAILY for 30 Days, #30 TAB 0 Refills Prov:BRITTANY CALDERON IV, MD 05/25/25 Reported Medications Lisinopril (Lisinopril) 20 Mg Tablet, 1 TAB PO HS for 30 Days, #30 TAB 0 Refills 05/23/25 Levothyroxine Sodium (Levothyroxine Sodium) 75 Mcg Tablet, 1 TAB PO DAILY for 30 Days, #30 TAB 0 Refills 05/23/25 Cholecalciferol (Vitamin D3) (Vitamin D) 10,000 Unit Capsule, 68812 UNIT PO DAILY, CAP 07/04/16 New Medications: Ferrous Sulfate (Ferrous Sulfate) 325 Mg (65 Mg Iron) Tablet 1 TAB PO DAILY for 30 Days, #30 TAB 0 Refills Take on an empty stomach (1 hr before or 2 hours after meals). Avoid taking with milk, coffee, tea, calcium or antacids. Continued Medications: Cholecalciferol (Vitamin D3) (Vitamin D) 10,000 Unit Capsule 38699 UNIT PO DAILY, CAP Levothyroxine Sodium (Levothyroxine Sodium) 75 Mcg Tablet 1 TAB PO DAILY for 30 Days, #30 TAB 0 Refills Lisinopril (Lisinopril) 20 Mg Tablet 1 TAB PO HS for 30 Days, #30 TAB 0 Refills Pantoprazole Sodium (Pantoprazole Sodium) 40 Mg Tablet.dr 1 TAB PO DAILY for 30 Days, #30 TAB 0 Refills Time spent arranging discharge: 1-30 minutes ATTESTATION BY PHYSICIAN I have seen and examined the patient. I reviewed the documentation, medical decision making, and treatment plan as noted by the resident provider above. I agree with the findings and plan of care. Filiberto Sahu MD, HEMA MD Jun 03, 2025 15:14
[2025-06-03] MEDS ORDERED: AMOX1TAB16 PO (15:56)
[2025-06-03 16:00] VITALS: BP 138/79; PULSE 70; RESP 16; TEMP 98.4
[2025-06-04] MEDS ORDERED: AMOX1TAB16 PO (16:59)
== END 2025-06-03 19:02 | disposition home or self-care (01) | DRG 378 ==
LOC: EDH 05:59 → EDBD 05:59 → EDHIP 07:22 → 2AH 05-30 12:00 → 4DH 06-02 13:50
PROVIDERS: ADMIT Internal Medicine; ATTEND Internal Medicine
PROC: 30233N1 Transfusion of Nonautologous Red Blood Cells into Peripheral Vein, Percutaneous Approach (ICD-10-PCS; principal; 2025-05-30)
PROC: 0DJD8ZZ Inspection of Lower Intestinal Tract, Via Natural or Artificial Opening Endoscopic (ICD-10-PCS; 2025-05-30)
PROC: 0DJ08ZZ Inspection of Upper Intestinal Tract, Via Natural or Artificial Opening Endoscopic (ICD-10-PCS; 2025-05-30)
DX: K57.31 Diverticulosis of large intestine without perforation or abscess with bleeding (principal); N39.0 Urinary tract infection, site not specified; D50.9 Iron deficiency anemia, unspecified; R55 Syncope and collapse; I10 Essential (primary) hypertension; E87.6 Hypokalemia; I95.9 Hypotension, unspecified; Z82.5 Family history of asthma and other chronic lower respiratory diseases; Z82.49 Family history of ischemic heart disease and other diseases of the circulatory system; E89.0 Postprocedural hypothyroidism
CPT/HCPCS: 36415; 36430; 36556; 44360; 45378; 71045; 72170; 78278; 80048; 80076; 81001; 81025; 82010; 82270; 82306; 82550; 82607; 82728; 82948; 83605; 83735; 84100; 84132; 84145; 84443; 85014; 85018; 85025; 85610; 85651; 85730; 86140; 86850; 86900; 86901; 86923; 87086; 96374; 99285; A4606; A9512; C1894; G0378; J0696; J1756; J2003; J2354; J2470; J2704; J3490; J7030; J7050; P9016; A4222; A4223; A4620; A7002; C1750

== ENCOUNTER 2025-07-17 23:53 | Emergency (ER) | payer BC ==
[~2025-07-17] VITALS: Ht 157.5 cm; Wt 78.5 kg
[~2025-07-17 23:53] MED LIST changes: +AMOX1TAB16 PO; +FERR-72 PO
--- NOTE | 2025-07-18 00:17 | ERN ---
ED Note History of Present Illness Stated Complaint: RLE SWELLING Chief Complaint: LOWER EXTREMITY EDEMA Time Seen by MD: 23:55 Dictation: 59-year-old female presents to ER complaints of right lower extremity pain and swelling. Patient states she was sitting down for long periods of time while driving to another city and has had pain and swelling to right lower extremity for about 3 days. He has chest pain or shortness of breath. Allergies: Coded Allergies: No Known Drug Allergies (Unverified Allergy, Unknown, 07/04/16) Home Meds Active Scripts Methocarbamol (Methocarbamol) 500 Mg Tablet, 1 TAB PO BID for PAIN, #10 TAB 0 Refills Prov:DARELL BUTT NP 07/18/25 Naproxen (Naproxen) 375 Mg Tablet, 375 MG PO BID, #20 TAB 0 Refills Prov:DARELL BUTT NP 07/18/25 Ferrous Sulfate (Ferrous Sulfate) 325 Mg (65 Mg Iron) Tablet, 1 TAB PO DAILY for 30 Days, #30 TAB 0 Refills Take on an empty stomach (1 hr before or 2 hours after meals). Avoid taking with milk, coffee, tea, calcium or antacids. Prov:MEME MARRERO MD 06/04/25 Amoxicillin/Potassium Clav (Amox Tr-K Clv 875-125 mg Tab) 875 Mg-125 Mg Tablet, 1 TAB PO BID for 3 Days, #6 TAB 0 Refills Prov:MEME MARRERO MD 06/04/25 Amoxicillin/Potassium Clav (Amox Tr-K Clv 875-125 mg Tab) 875 Mg-125 Mg Tablet, 1 TAB PO BID for 3 Days, #6 TAB 0 Refills Prov:MARIANNE GRIMALDO MD 06/03/25 Ferrous Sulfate (Ferrous Sulfate) 325 Mg (65 Mg Iron) Tablet, 1 TAB PO DAILY for 30 Days, #30 TAB 0 Refills Take on an empty stomach (1 hr before or 2 hours after meals). Avoid taking with milk, coffee, tea, calcium or antacids. Prov:MEME MARRERO MD 06/03/25 Pantoprazole Sodium (Pantoprazole Sodium) 40 Mg Tablet.dr, 1 TAB PO DAILY for 30 Days, #30 TAB 0 Refills Prov:BRITTANY CALDERON IV, MD 05/25/25 Reported Medications Lisinopril (Lisinopril) 20 Mg Tablet, 1 TAB PO HS for 30 Days, #30 TAB 0 Refills 05/23/25 Levothyroxine Sodium (Levothyroxine Sodium) 75 Mcg Tablet, 1 TAB PO DAILY for 30 Days, #30 TAB 0 Refills 05/23/25 Cholecalciferol (Vitamin D3) (Vitamin D) 10,000 Unit Capsule, 86691 UNIT PO DAILY, CAP 07/04/16 Past Medical History Past Medical History: Other Additional Past Medical Hx: GI BLEED Surgical History: Other Surgical History Other: THYROIDECTEMY Review of System Dictation CONSTITUTIONAL: NEGATIVE FOR FEVER,CHILLS, AND WEIGHT LOSS EYES: NEGATIVE FOR INJURY, PAIN,REDNESS, AND DISCHARGE ENT: NEGATIVE FOR INJURY,PAIN OR SWELLING CARDIOVASCULAR: NEGATIVE FOR CHEST PAIN, PALPITATIONS, AND EDEMA RESPIRATORY: NEGATIVE FOR SHORTNESS OF BREATH, COUGH, WHEEZING, AND PLEURITIC CHEST PAIN ABDOMEN/GI: NEGATIVE FOR ABDOMINAL PAIN, NAUSEA, VOMITING AND DIARRHEA. BACK: NEGATIVE FOR PAIN OR INJURY : NEGATIVE FOR INJURY, BLEEDING AND DISCHARGE MS/EXTREMITY: Positive for pain and swelling right lower extremity SKIN: NEGATIVE FOR RASH, AND DISCOLORATION NEURO: NEGATIVE FOR HEADACHE, WEAKNESS, NUMBNESS, TINGLING, AND SEIZURE PSYCH: NEGATIVE FOR SUICIDE IDEATION, HOMICIDAL IDEATION, AND HALLUCINATIONS ALLERGY/IMMUNOLOGY: NEGATIVE FOR HIVES, RASH, AND ALLERGIES ALL SYSTEMS NEGATIVE, EXCEPT NOTED ABOVE. 13 POINT REVIEW OF SYSTEMS ASSESSED AND ALL NEGATIVE EXCEPT FOR ABOVE. Initial Vital Sign VS Vital Signs Date Time Temp Pulse Resp B/P (MAP) Pulse Ox O2 Delivery O2 Flow Rate FiO2 07/17/25 23:55 98.4 69 18 153/78 98 Room Air* 0 21 Physical Exam Dictation General: awake, alert, NAD Head/Face: Normocephalic, atraumatic Eyes: PERRL, EOMI, vision at baseline ENT: oral cavity clear, TMs clear, no signs of infection Neck: Trachea midline, supple, no nuchal rigidity Cardiovascular: RRR, normal no JVD Respiratory: CTAB, no respiratory distress, No rales or wheezes Abdomen: Soft, non-tender, non-distended, normal bowel sounds, no guarding or rebound. Skin: Warm, dry, normal turgor, no rash MS/Extremity: Pulses equal, no cyanosis, neurovascular intact, FROM Neuro: COAx4, GCS 15, strength 5/5, CN 2-12 intact, normal cerebellar exam, normal gait, Psych: Normal behavior, mood, and affect normal Results (Laboratory/Radiology) Laboratory/Radiology Laboratory Tests Test 07/18/25 00:18 White Blood Count 7.2 K/uL (4.8-10.8) Red Blood Count 4.04 MIL/uL (4.00-5.50) Hemoglobin 12.3 g/dL (12.0-16.0) Hematocrit 36.6 % (36-48) Mean Corpuscular Volume 90.6 fL (79-99) Mean Corpuscular Hemoglobin 30.4 pg (27.0-33.0) Mean Corpuscular Hemoglobin Concent 33.6 g/dL (32.0-36.0) Red Cell Distribution Width 13.0 % (11.0-15.5) Platelet Count 283 K/uL (130-400) Mean Platelet Volume 9.4 fL (7.5-10.5) Immature Granulocyte % (Auto) 0.3 % (0-1) Neutrophils (%) (Auto) 44.4 % (40.0-77.0) Lymphocytes (%) (Auto) 44.2 % (21.0-51.0) Monocytes (%) (Auto) 8.1 % (3.0-13.0) Eosinophils (%) (Auto) 2.2 % (0.0-8.0) Basophils (%) (Auto) 0.8 % (0.0-5.0) Neutrophils # (Auto) 3.2 K/uL (1.8-7.7) Lymphocytes # (Auto) 3.2 K/uL (1.0-4.8) Monocytes # (Auto) 0.6 K/uL (0.1-1.0) Eosinophils # (Auto) 0.16 K/uL (0.00-0.70) Basophils # (Auto) 0.06 K/uL (0.00-0.20) Absolute Immature Granulocyte (auto 0.02 K/uL (0-1) Nucleated Red Blood Cells 0.0 % (0.0-0.19) D-Dimer Quantitative (PE/DVT) 736 ng/mL (0-500) *H Sodium Level 141 mmol/L (136-145) Potassium Level 4.6 mmol/L (3.5-5.1) Chloride Level 105 mmol/L (101-111) Carbon Dioxide Level 29 mmol/L (21-32) Blood Urea Nitrogen 18 mg/dL (7-18) Creatinine 0.5 mg/dL (0.5-1.0) Glomerular Filtration Rate Calc 107 mL/min (>90) Random Glucose 102 mg/dL (70-105) Total Calcium 8.9 mg/dL (8.5-10.1) Total Creatine Kinase 70 U/L (21-232) # Troponin I High Sensitivity 15 ng/L (4-50) ED Course ED Course Orders Procedure Category Date Status Time Cbc With Differential LAB 07/18/25 Complete 00:05 D-Dimer LAB 07/18/25 Complete 00:05 Chest 1vw RAD 07/18/25 Resulted 00:05 Creatine Kinase, Total LAB 07/18/25 Complete 00:05 Troponin I High LAB 07/18/25 Complete Sensitivity 00:05 Basic Metabolic Panel LAB 07/18/25 Complete 00:05 Us Arterial Bilat Low US 07/18/25 Resulted Ext Dupl 00:05 Us Venous Doppler US 07/18/25 Resulted Bilateral 00:05 Orphenadrine Citrate PHA 07/18/25 Complete (Norflex) 01:30 Ketorolac PHA 07/18/25 Complete Tromethamine 30mg/Ml 01:30 12 Lead Ekg Tracing- EKG 07/17/25 Complete Technical 23:54 Current Medications Medications (Trade) Dose Ordered Sig/Magui Route PRN Reason Start Time Stop Time Status Last Admin Dose Admin Ketorolac Tromethamine (toRADol) 30 mg ONCE ONCE IVP 07/18/25 01:30 07/18/25 01:31 DC 07/18/25 01:51 Orphenadrine Citrate (Norflex) 30 mg ONCE ONCE IVP 07/18/25 01:30 07/18/25 01:31 DC 07/18/25 01:51 Vital Signs Date Time Temp Pulse Resp B/P (MAP) Pulse Ox O2 Delivery O2 Flow Rate FiO2 07/18/25 02:31 98.2 72 18 138/76 98 Room Air* 0 21 07/17/25 23:55 98.4 69 18 153/79 98 Room Air 0 07/17/25 23:55 98.4 69 18 153/78 98 Room Air* 0 21 Medical Decision Making MDM MDM: Differential diagnosis: DVT, muscle strain, PAD Rationale: Tests considered and ordered secondary to shared decision making include: labs, ECG and radiology Previous outside records reviewed: Old ER visits. Risk of complication and/or morbidity or mortality of patient management: None Medications-Per medication reconciliation Need for hospitalization: Patient does NOT meet criteria for hospitalization. Need for emergency major/minor surgery: No There are no social concerns with this patient. Prescription drug management Prescriptions will include symptomatic care Patient's prior external medical records from other ER visits were reviewed by me as indicated. Prior testing and results from previous visits were reviewed. Prior tests were taken into account with medical decision making and resource utilization, independent historian/historians were used to obtain complete medical history. I independently interpreted the test that were performed, results were reviewed by me and considered findings on radiology if ordered. PATIENT NEGATIVE FOR DVT OR PAD. WE WILL TREAT FOR MUSCLE STRAIN , MUSCLE SPASM TO RIGHT LOWER LEG. PATIENT VSS, NAD, NONTOXIC, STABLE FOR DISCHARGE. PT GIVEN DISCHARGE INSTRUCTIONS IN [place]MAN TERMS AND UNDERSTOOD, ALL QUESTIONS ANSWERED. PT WILL FOLLOW UP WITH PCP AND RETURN TO THE ER IF WORSE. DX & DISP Disposition: Discharge Departure Impression: Primary Impression: Muscle strain Additional Impression: Right leg pain Condition: Stable Scripts Methocarbamol (Methocarbamol) 500 Mg Tablet 1 TAB PO BID for PAIN, #10 TAB 0 Refills Prov: DARELL BUTT NP 07/18/25 Naproxen (Naproxen) 375 Mg Tablet 375 MG PO BID, #20 TAB 0 Refills Prov: DARELL BUTT NP 07/18/25 Additional Instructions: FOLLOW-UP WITH YOUR PCP IN 24-72 HOURS AND IN THE EVENT IF SYMPTOMS WORSEN OR AN EMERGENCY OVERNIGHT REPORT TO THE ED IMMEDIATELY Referrals: ILAN FRAUSTO DO (PCP) ATTESTATION BY PHYSICIAN I PERFORMED THE SUBSTANTIVE PORTION OF THE VISIT. I HAVE REVIEWED AND PERSONALLY MADE AND APPROVED THE MANAGEMENT PLAN THAT IS DOCUMENTED IN THE NOTE BY MYSELF FOR THE A PP. DARELL BUTT NP Jul 18, 2025 00:17 DICK WOODY MD Jul 18, 2025 19:29
[2025-07-18 00:36] LABS: CREATININE 0.5 mg/dL (0.5-1.0); GLOMERULAR FILTR. RATE CALC 107.0 mL/min (>90); GLUCOSE,RANDOM 102.0 mg/dL (70-105); SODIUM SERUM 141.0 mmol/L (136-145); UREA NITROGEN, BLOOD 18.0 mg/dL (7-18)
[2025-07-18 00:38] LABS: IMMATURE GRANULOCYTE ABSOLUTE 0.02 K/uL (0-1); NUCLEATED RED BLOOD CELLS 0.0 % (0.0-0.19); PLATELET COUNT (AUTO) 283 K/uL (130-400); RED BLOOD CELL COUNT(AUTO) 4.04 MIL/uL (4.00-5.50); RED CELL DISTRIBUTION WIDTH 13.0 % (11.0-15.5); WHITE BLOOD COUNT (AUTO) 7.2 K/uL (4.8-10.8)
[2025-07-18 00:41] LABS: CREATINE KINASE, TOTAL 70.0 U/L (21-232)
[2025-07-18] MEDS ORDERED: NAPR-1192 PO (01:48)
[2025-07-18] MEDS ORDERED: METH-811 PO (01:48)
[2025-07-18] MEDS: ORPHENADRINE 60MG/2ML IVP ONE (01:51)
[2025-07-18 02:31] VITALS: BP 138/76; PULSE 72; RESP 18; TEMP 98.2; O2SAT 98
--- NOTE | 2025-07-18 02:31 | HMCIMG ---
EXAM: US for Deep Venous Thrombosis, bilateral Lower Extremity. CLINICAL HISTORY: Rule out a clot. TECHNIQUE: Real-time ultrasound scan of the veins of the bilateral lower extremity with color Doppler flow, spectral waveform analysis, and compression. COMPARISON: None provided. FINDINGS: DEEP VEINS: The common femoral, superficial femoral, and popliteal veins are echolucent and compressible. There is normal color Doppler flow throughout. The visualized calf veins appear patent. SOFT TISSUES: No popliteal fossa cyst or other abnormalities. IMPRESSION: No deep venous thrombosis is evident on bilateral lower extremity examination. /[place]
--- NOTE | 2025-07-18 02:37 | HMCIMG ---
EXAM: US Duplex Bilateral Lower Extremity Arteries. CLINICAL HISTORY: Rule out a clot. TECHNIQUE: Real-time ultrasound scan of the arteries of the bilateral lower extremities with 2-D larkin scale, color Doppler flow, and spectral waveform analysis. COMPARISON: None provided. FINDINGS: RIGHT LOWER EXTREMITY: COMMON FEMORAL ARTERY: PSV 136 cm/sec. Triphasic waveform. No occlusion or significant stenosis. Normal SUPERFICIAL FEMORAL ARTERY: Proximal: PSV 120 cm/sec. Triphasic waveform Mid: PSV 113 cm/sec. Triphasic waveform Distal: PSV 97 cm/sec. Triphasic waveform No occlusion or significant stenosis. Normal POPLITEAL ARTERY: Proximal: PSV 55 cm/sec. Triphasic waveform Distal: PSV 109 cm/sec. Triphasic waveform No occlusion or significant stenosis. Normal CALF ARTERIES: Posterior Tibial Artery ([employer]): PSV 102 cm/sec. Triphasic waveform Anterior Tibial Artery (BILL): PSV 72 cm/sec. Triphasic waveform Dorsalis Pedis Artery (DPA): PSV 105 cm/sec. Triphasic waveform No occlusion or significant stenosis. Normal LEFT LOWER EXTREMITY: COMMON FEMORAL ARTERY: PSV 151 cm/sec. Triphasic waveform 20-49% stenosis noted Mild atherosclerotic changes SUPERFICIAL FEMORAL ARTERY: Proximal: PSV 134 cm/sec. Triphasic waveform Mid: PSV 112 cm/sec. Triphasic waveform Distal: PSV 70 cm/sec. Biphasic waveform Waveform changes suggest mild distal disease POPLITEAL ARTERY: Proximal: PSV 75 cm/sec. Biphasic waveform Distal: PSV 95 cm/sec. 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 Triphasic waveform Anterior Tibial Artery (BILL): PSV 55 cm/sec. Triphasic waveform Dorsalis Pedis Artery (DPA): PSV 50 cm/sec. Triphasic waveform No occlusion or hemodynamically significant stenosis identified IMPRESSION: Mild peripheral arterial disease bilaterally without occlusive clot or hemodynamically significant stenosis. 20% to 49% stenoses around the left common femoral artery. /[place]
--- NOTE | 2025-07-18 03:20 | HMCIMG ---
EXAM: CR Chest, 1 view CLINICAL HISTORY: Edema. COMPARISON: Chest radiograph dated 05/29/2025. FINDINGS: The lungs show no infiltrates or other acute findings. No pleural effusion or pneumothorax. The cardiomediastinal silhouette is within normal limits. No acute osseous abnormality. IMPRESSION: No acute cardiopulmonary process is evident. Compared to the prior study, there is no significant interval change. /[place]
--- NOTE | 2025-07-18 13:32 | EKG ---
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
== END 2025-07-18 02:37 | disposition home or self-care (01) ==
LOC: EDH 23:53
DX: S86.911A Strain of unspecified muscle(s) and tendon(s) at lower leg level, right leg, initial encounter (principal); M79.604 Pain in right leg; Z79.890 Hormone replacement therapy; Z79.899 Other long term (current) drug therapy; X58.XXXA Exposure to other specified factors, initial encounter; Y93.89 Activity, other specified; Y92.89 Other specified places as the place of occurrence of the external cause; Y99.8 Other external cause status
CPT/HCPCS: 99285; 82550; 84484; 80048; 85025; 85378; 36415; 93005; 93970; 93925; 96374; 71045; 96375; J1885; J2360